=== PATIENT | female | born 1965 | race Caucasian/White ===

== ENCOUNTER 2023-08-16 14:21 | Inpatient (IN) | payer MEDICARE, OTHER, SELFPAY ==
[2023-08-16] VITALS (12 sets, daily range): BP systolic 101–137; BP diastolic 54–85; PULSE 113–133; RESP 20–32; TEMP 36.6–38.6; O2SAT 91–98; BMI 54.1
--- NOTE | ~2023-08-16 | XR_ITS ---
EXAMINATION: XR chest 1V portable DATE: 08/21/2023 15:01 INDICATION: Tachycardia TECHNIQUE: frontal view of the chest was obtained. COMPARISON: Chest radiograph dated 08/18/2023 FINDINGS: The lungs remain clear with no focal airspace opacities, pulmonary edema, pleural effusion or pneumot horax. The cardiomediastinal silhouette is normal. IMPRESSION: 1. No acute cardiopulmonary disease. Reviewed, dictated and finalized at location A.
--- NOTE | ~2023-08-16 | XR_ITS ---
XR chest 1V portable DATE: 08/16/2023 20:33 INDICATION: Sepsis TECHNIQUE: Portable AP chest on August 16, 2023 2026 hours COMPARISON: No prior radiographs available from archive at this time FINDINGS: Heart size is normal. No hilar or mediastinal enlargement is evident. Mild patchy haziness in the mid and lower lung zones suggests possible mild bilateral pulmonary infil trates. No pleural effusion or pulmonary vascular congestion or pneumothorax is detected. IMPRESSION: Suggestion of mild patchy rather diffuse bilateral pulmonary infiltrates Reviewed, dictated and finalized at location A. IMPRESSION: Suggestion of mild patchy rather diffuse bilateral pulmonary infilt rates
--- NOTE | ~2023-08-16 | CT_ITS ---
EXAMINATION: CT abdomen pelvis w con DATE: 08/16/2023 16:36 INDICATION: Right lower quadrant abdominal pain, nausea. TECHNIQUE: Computed tomography (CT) of the abdomen and pelvis was performed with 100 CC Omnipaque 350 intravenous contrast. Automated exposure control and iterative reconstruction technique were employe d. Exam dose: 1669.75 mGy-cm total exam DLP. COMPARISON: 02/13/2006 CT renal scan is not available from the archive at this time. FINDINGS: The lung bases are clear. Heart size is within normal range. No pericardial or pleural effu halina. There is splenomegaly. No hepatic, splenic, pancreatic or left adrenal space occupying mass lesion. Right adrenal 2.5 x 3.5 cm myelolipoma. Prominent bilateral nephrolithiasis. There is an approximately 6 x 7 mm obstructing calculus at the p roximal right ureter with moderate right hydroureteronephrosis and some prominent perinephric fluid a ccumulation. Indeterminate space-occupying mass lesions of the right kidney, not optimally evaluated because of po or soft tissue detail and body habitus. Consider MR examination for more definitive evaluation. Probable small angiomyolipoma of the posterior mid left kidney. No left hydroureteronephrosis. There is some air within the urinary bladder lumen moderate diffuse thickening of the urinary bladder wall. Cystitis is not excluded. Status post hysterectomy. No evidence of abdominal aortic aneurysm. No intraperitoneal or retroperitoneal or pelvic mass lesion or adenopathy or ascites is noted. Small sliding hiatal hernia. Status post gastric bypass surgery. No bowel obstruction or intraperitoneal free air. No suspicious osteolytic or osteoblastic lesions are noted. 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 Reviewed, dictated and finalized at [facility]. IMPRESSION: Approximately 6 x 7 mm obstructing proximal right ureteral calculu s with moderate right hydronephrosis, prominent perinephric fluid and fat stran ding Bilateral nephrolithiasis Bilateral renal indeterminate space-occupying lesions Splenomegaly Right adrenal myelolipoma Small left renal angiomyolipoma Status post gastric bypass surgery Status post hysterectomy
--- NOTE | ~2023-08-16 | US_ITS ---
EXAMINATION: US renal BI DATE: 08/19/2023 14:08 INDICATION: ADAM + pyelonephritis TECHNIQUE: Multiple grayscale and Doppler ultrasound images of the kidneys were obtained. COMPARISON: 08/16/2023 FINDINGS: Exam limited by patient mobility and body habitus. The right kidney measures 11.6 x 8.2 x 10.1 cm. Th e left kidney measures 10.3 x 7.6 x 6.8 cm. The kidneys demonstrate normal parenchymal echogenicity. lobulation versus cortical scarring. Echogenic right upper pole focus measuring up to 1.5 cm wi th twinkle artifact. Hypoechoic right midpole lesion measuring 2.2 cm. Hypoechoic lesions in the left kidney measuring 1.9 and 3.2 cm. There is mild right pelviectasis. The bladder is emptied by Krueger c atheter and therefore not completely evaluated. IMPRESSION: Mild right pelviectasis. Right nephrolithiasis. Bilateral renal masses. Prior recommendation for MRI of the kidneys is unchanged. Reviewed, dictated and finalized at [facility]. IMPRESSION: Mild right pelviectasis. Right nephrolithiasis. Bilateral renal masses. Prior r ecommendation for MRI of the kidneys is unchanged.
--- NOTE | ~2023-08-16 | XR_ITS ---
EXAMINATION: XR chest 2V DATE: 08/18/2023 13:08 INDICATION: Shortness of breath. TECHNIQUE: Frontal and lateral views of the chest were obtained. COMPARISON: Chest single view 08/16/2023, CT abdomen and pelvis 08/16/2023 FINDINGS: There is mild atelectasis in the lower lung zones. No pleural effusion or pneumothorax. The heart size is normal. IMPRESSION: 1. Mild atelectasis in the lower lung zones. Reviewed, dictated and finalized at [facility].
--- NOTE | ~2023-08-16 | XR_ITS ---
EXAMINATION: XR retrograde pyelo w/stent BI DATE: 08/16/2023 23:19 INDICATION: Bilateral retrograde pyelograms and stent placement. TECHNIQUE: 2 fluoroscopic images of the abdomen and pelvis were obtained during procedure performed nikki Morin. Radiologist was not present for the imaging or procedure. The amount of fluoroscopy time used during this procedure was 1.9 minutes. COMPARISON: None. FINDINGS: Images demonstrate placement of bilateral internal ureteral stents with loops formed over the expecte d location of the bladder and bilateral renal pelvises sees. There is increased density at the renal calyces which could represent injected contrast and/or large renal stones as seen on prior CT. IMPRESSION: 1. Bilateral internal ureteral stents place in expected position. See procedure note for further deta il. Reviewed, dictated and finalized at [facility]. IMPRESSION: 1. Bilateral internal ureteral stents place in expected position. See procedure note for further detail.
[2023-08-16 15:21] LABS: Basophils Absolute Auto 0.1 K/mm3 (0.0-0.1); Basophils Percent Auto 0.5 % (0.2-1.2); Eosinophils Absolute Auto 0.1 K/mm3 (0-0.3); Eosinophils Percent Auto 0.4 % (0-4.4); Hematocrit 33.4 % (37.0-47.0); Hemoglobin 9.8 g/dL (12.0-15.0); Immature Granulocyte Absolute 0.15 K/mm3 (0.00-0.031); Lymphocytes Absolute Auto 0.32 K/mm3 (0.9-3.2); Lymphocytes Percent Auto 2.2 % (18.3-44.2); Mean Corpuscular HGB Conc 29.3 g/dl (32-36); Mean Corpuscular Hemoglobin 23.5 pg (26-34); Mean Corpuscular Volume 80.1 fl (80-100); Mean Platelet Volume 9.8 fl (7.4-10.4); Monocytes Absolute Auto 0.7 K/mm3 (0.1-0.6); Monocytes Percent Auto 4.9 % (2.6-8.5); Neutrophils Absolute Auto 13.1 K/mm3 (1.3-6.7); Platelet Count Result 498 k/mm3 (150-375); Red Blood Count 4.17 M/mm3 (4.2-5.4); White Blood Count 14.4 K/mm3 (4.5-10.0)
[2023-08-16] MEDS: MORPHINE SULFATE (*CRX) 4 MG/ML INJ IV PUSH ×2 (15:28→18:57)
[2023-08-16] MEDS: SODIUM CHLORIDE 0.9% IV 1,000 ML 999 ML IV CONT ×2 (15:28→16:09)
[2023-08-16] MEDS: ONDANSETRON INJ 4 MG/2 ML VIAL IV PUSH (15:28)
[2023-08-16 15:29] LABS: Alanine Aminotransferase 16 U/L (6-35); Albumin Level 3.6 g/dL (3.5-5.1); Alkaline Phosphatase 118 U/L (38-126); Anion Gap 16 mmol/L (4-12); Aspartate Amino Transferase 27 U/L (14-36); Blood Urea Nitrogen 19 mg/dL (7-17); Carbon Dioxide 17 mmol/L (22-30); Chloride 97 mmol/L (98-107); Estimated Glomerular Filt Rate 33; Glucose 472 mg/dL (65-110); Lipase 35 U/L (23-300); Potassium 4.8 mmol/L (3.4-5.0); Sodium 130 mmol/L (137-145)
[2023-08-16 15:34] LABS: Appearance Urine Turbid (Clear); Bacteria Urine 4+ /hpf; Bilirubin Urine 1+ (Negative); Blood Urine 3+ (Negative); Color Urine Dark Yellow (Yellow); Glucose Urine UA 3+ mg/dL (Negative); Ketones Urine Trace mg/dL (Negative); Leukocyte Esterase Ur 2+ LEU/UL (Negative); Need Manual Microscopic Reviewed; Nitrate Urine Negative (Negative); Non Pathogenic Casts >20; Protein Urine 2+ mg/dL (Negative); RBC Urine 51-100 /hpf (0-2); Specific Grav Ur 1.024 (1.001-1.035); Squamous Epithelial Cell Urine Many /hpf (Few); WBC Urine >100 /hpf (0-3)
[2023-08-16 15:47] LABS: Add Urine Microscopic? YES
--- NOTE | 2023-08-16 16:05 | ED.ABDPAIN ---
HPI - Abdominal Pain General Chief Complaint: Abdominal Pain Stated Complaint: right lower abdominal pain, recent UTI Time Seen by Provider: 08/16/23 14:55 History of Present Illness HPI narrative: patient is a 58-year-old female who presents ER with right lower quadrant abdominal pain. Is having symptoms of UTI this last week and was prescribed ciprofloxacin over the phone. She has been taking medicine. Urinary frequency and dysuria improved. She took some azo as well. Unfortunately she has developed pain in right lower quadrant that is worsening. No radiation. No fevers or chills. Patient reports she is urinating less than she used to. Related Data Allergies Allergy/AdvReac Type Severity Reaction Status Date / Time metformin AdvReac Intermediate Diarrhea Verified 03/19/23 07:43 TOPICAL SULFA Allergy Mild RASH AND Uncoded 03/19/23 07:43 REDNESS Review of Systems Review of Systems: All systems reviewed & are unremarkable except as noted in HPI and below Constitutional: Constitutional: Reports no additional constitutional complaints ENT: Reports system reviewed and no additional complaints, except as documented Cardiovascular: Cardiovascular: Reports no additional cardiovascular complaints Respiratory: Respiratory: Reports no additional respiratory complaints Gastrointestinal: Gastrointestinal: Reports abdominal pain, Denies constipation, Denies nausea and Denies vomiting Genitourinary: Genitourinary: Reports no additional female genitourinary complaints [facility] Past Medical History Medical History (Updated 08/16/23 @ 17:58 by Jey Hernandez MD) Type 2 diabetes mellitus with hyperglycemia Surgical History Surgical History (Updated 03/02/22 @ 08:08 by Ronny Young MD) History of endometrial ablation (2003) History of gastric bypass (2004) History of hysterectomy (2005) Family History Family History (Updated 12/02/15 @ 23:19 by DOCTOR UNKNOWN) Father Carcinoma of colon Sibling Family history of diabetes mellitus in first degree relative Mother Family history of heart disease in male family member before age 55 Other Diabetes mellitus Social History Social History Smoking status: Former smoker Alcohol intake: never Exam Narrative: GENERAL: Well-appearing, morbidly obese, and in no acute distress. HEAD: Normocephalic, atraumatic. ENT: dry mucous membranes. NECK: Supple. CHEST: Clear to auscultation. No respiratory distress. HEART: Regular rate and rhythm. Normal peripheral pulses. ABDOMEN: Soft, nontender, nondistended. EXTREMITIES: Normal range of motion. No edema. SKIN: Warm, dry, no rash. NEURO: Alert and oriented x3. PSYCH: Normal mood and affect. Course Course Emergency Course: Discussed with urology. Recommends repeat UA for a clean sample in the recommend catheterization. He would like the patient admitted to the hospitalist service and NPO. Ceftriaxone started. Patient aware of diagnosis and treatment plan. Vital Signs Vital signs: Vital Signs Temperature 99.1 F 08/16/23 14:24 Pulse Rate 130 H 08/16/23 14:24 Respiratory Rate 22 H 08/16/23 14:24 Blood Pressure 122/71 08/16/23 14:24 Pulse Oximetry 96 08/16/23 14:24 Oxygen Delivery Room Air 08/16/23 14:24 Temperature 99.1 F 08/16/23 14:24 Pulse Rate 130 H 08/16/23 14:24 Respiratory Rate 22 H 08/16/23 14:24 Blood Pressure 122/71 08/16/23 14:24 Pulse Oximetry 96 08/16/23 14:24 Oxygen Delivery Room Air 08/16/23 14:24 MDM - Abdominal Pain Lab Data 08/16/23 15:12 08/16/23 15:12 Labs: Lab Results 08/16/23 08/16/23 08/16/23 Range/Units 15:11 15:12 17:33 WBC 14.4 H (4.5-10.0) K/mm3 RBC 4.17 L (4.2-5.4) M/mm3 Hgb 9.8 L (12.0-15.0) g/dL Hct 33.4 L (37.0-47.0) % MCV 80.1 (80-100) fl MCH 23.5 L (26-34) pg MCHC 29.3 L (32-36) g/dl RDW 16.0 H (11.5-14.5) % Plt Count
[2023-08-16 18:01] LABS: Lactic Acid Reflex 2.7 mmol/L (0.7-2.0)
[2023-08-16] MEDS: SODIUM CHLORIDE 0.9% IV 1,000 ML 125 ML IV CONT (18:53)
--- NOTE | 2023-08-16 19:45 | PC.NURSE ---
This patient, Estefany Li, was admitted to IMU Room 210-01. Patient/family oriented to hospital policies and general routines including ID bracelet, bed and alarms, visiting hours, pain management, procedures, bathroom and other care routines, personal items, smoking policy, room service/diet, and visiting hours. Information on how to activate the Rapid Response Team has been discussed. Patient/Family are encouraged to report perceived risks to care and to ask questions if they do not understand what they are told or what they should do.
--- NOTE | 2023-08-16 19:56 | PM.IMHP ---
H&P: HPI History of Present Illness Date/Time: 08/16/23 19:56 Chief Complaint: Abdominal Pain, Nausea, Dysuria Narrative: 58 y/o F presents here with lower abdominal pain, nausea, and dysuria with PMH of type 2 diabetes, GERD, insomnia, overactive bladder, and anxiety/depression. Surgical history of endometrial ablation, gastric bypass, and hysterectomy. Patient presents here for further evaluation of right lower quadrant pain, dysuria, and nausea without vomiting but has been dry heaving. Lower abdominal pain is described as severe, radiating into R flank, and intermittent. Patient reports that she was treated for a UTI with Cipro 500 mg b.i.d. x7 days, filled on 07/29/2023 and Augmentin b.i.d. x7 days on 08/02/2023. Prescribed by her PCP Indu. Dysuria and urinary frequency did not resolve with abx courses but did not worsen until 3-4 days ago, i.e. the flank pain and lower abdominal pain. Now experiencing chills, SOB and tachypnea. Denies any subjective fevers or body aches. Has had decreased appetite and dry mucous membranes for the past month, patient does not check glucose at home - has never been prescribed the equipment and told she does not need to. Last A1C was 9.8% in Mar. Not on any injectable insulin. Initial VS at presentation: 99.1? F, HR 130, RR 22, 122/71, and 96% on RA. ED workup showed: WBC 14.4, Hgb 9.8 (previously 11.7 in 2021), sodium 130, CO2 17, gap 16, creatinine 1.6 with GFR of 33 (previous creatinine 0.74 on 03/12/2023), glucose 472, lactic acid 2.7, and UA suggestive of UTI however was contaminated. Being repeated. CT of the abdomen pelvis showed a 6 x 7 mm obstructing proximal right ureteral calculus with moderate right hydronephrosis, prominent perinephritic fluid, and fat stranding, bilateral nephrolithiasis, bilateral renal indeterminate space-occupying lesions, splenomegaly, right adrenal myelolipoma, small left renal angio myelolipoma. Review of Systems Review of Systems: All systems reviewed & are unremarkable except as noted in HPI and below PMFSH Past Medical History Medical History Gastro-esophageal reflux disease without esophagitis Hypothyroidism, unspecified Major depressive disorder, recurrent severe without psychotic features Morbid (severe) obesity due to excess calories Overactive bladder Type 2 diabetes mellitus with hyperglycemia Surgical History Surgical History History of endometrial ablation (2003) History of gastric bypass (2004) History of hysterectomy (2005) Family History Family History Father Carcinoma of colon Sibling Family history of diabetes mellitus in first degree relative Mother Family history of heart disease in male family member before age 55 Other Diabetes mellitus Social History Social History Years smoked: 30 Smoking status: Former smoker Alcohol intake: never Substance use: never Do You Feel Safe in your Home?: Yes Lack of Transportation: YES Lack of Food: Never True Current Housing: I Have Housing Concerned About Future Housing: YES Difficulty Paying Gas/Electric Bills: No Difficulty Paying for Meds: No Currently Unemployed: No Education: Decline to Answer Difficulty w/ Childcare or Family Care: No Spiritual care concerns: No Meds Home Medications and Allergies Home Medications Medication Instructions Recorded Confirmed Type oxybutynin chloride 10 mg 20 mg PO DAILY #180 tabs 03/19/23 08/16/23 Rx tablet,extended release 24 hr omeprazole 40 mg capsule,delayed 40 mg PO DAILY #90 caps 03/31/23 08/16/23 Rx release glimepiride 1 mg tablet 1 mg PO QAM #90 tabs 04/02/23 08/16/23 Rx pioglitazone 30 mg tablet 30 mg PO DAILY #90 tabs 04/02/23 08/16/23 Rx bupropion HCl 300 mg
[2023-08-16 20:14] LABS: Appearance Urine Turbid (Clear); Bacteria Urine 4+ /hpf; Bilirubin Urine 1+ (Negative); Blood Urine 3+ (Negative); Color Urine Dark Yellow (Yellow); Glucose Urine UA 3+ mg/dL (Negative); Ketones Urine Negative (Negative); Leukocyte Esterase Ur 2+ LEU/UL (Negative); Need Manual Microscopic Reviewed; Nitrate Urine Positive (Negative); Protein Urine 2+ mg/dL (Negative); Squamous Epithelial Cell Urine Few /hpf (Few); WBC Urine >100 /hpf (0-3)
[2023-08-16 20:17] LABS: Specific Grav Ur 1.039 (1.001-1.035)
[2023-08-16 20:19] LABS: Add Urine Microscopic? YES
[2023-08-16 20:27] LABS: Alveolar/Arterial O2 Gradient 51.3 mmHg; Base Excess ABG -4.4 mEq/l (+/-2.0); Fractional Inspired Oxygen 21 %; HCO3 ABG 20.2 mEq/l (22.0-26.0); Oxygen Content ABG 12.1 %vol (16.0-22.0); PCO2 ABG 35.2 mmHg (35.0-45.0); PO2 ABG 56.3 mmHg (80.0-100.0); PO2 FiO2 Ratio Arterial Blood 2.68 %; Total Hemoglobin 9.8 g/dL (12.0-18.0)
[2023-08-16 20:30] LABS: Modified Allen's Test Pass; Oxyhemoglobin 87.4 % THb (90.0-100.0); Site Drawn RIGHT RADIAL
[2023-08-16 20:31] LABS: pH ABG 7.376 (7.350-7.450)
[2023-08-16 20:37] LABS: Reflex Lactic Acid Yes or No Add Lactic
[2023-08-16 20:59] LABS: Anion Gap 8 mmol/L (4-12); Blood Urea Nitrogen 19 mg/dL (7-17); Calcium 8.6 mg/dL (8.4-10.2); Carbon Dioxide 22 mmol/L (22-30); Chloride 100 mmol/L (98-107); Estimated CRCL calculation 48 ml/min; Estimated Glomerular Filt Rate 29; Glucose 427 mg/dL (65-110); Lactic Acid Reflex 2.5 mmol/L (0.7-2.0); Potassium 4.8 mmol/L (3.4-5.0); Sodium 130 mmol/L (137-145)
[2023-08-16 21:08] LABS: Beta-Hydroxybutyrate/Acetoacetate 0.41 mmol/L (0.02-0.27)
--- NOTE | 2023-08-16 21:11 | WPDANESEPP ---
Anes - Eval Pre Procedure Procedure: cystoscopy with right stent placement Date/Time: 08/16/23 21:11 Preop Diagnosis: right ureteral stone Pre Op Diagnosis: Ureteral Stone, UTI Patient Data Age: 58 Gender: F Height: 1.7 m Weight: 156.6 kg Last Vital Signs Temp 37.7 C H 08/16/23 19:50 Pulse 127 H 08/16/23 19:50 Resp 22 H 08/16/23 19:50 BP 127/68 08/16/23 19:50 Pulse Ox 91 08/16/23 19:50 O2 Del Method Room Air 08/16/23 14:24 Allergies Allergy/AdvReac Type Severity Reaction Status Date / Time metformin AdvReac Intermediate Diarrhea Verified 08/16/23 19:54 TOPICAL SULFA Allergy Mild RASH AND Uncoded 03/19/23 07:43 REDNESS Home Medications Medication Instructions Recorded Confirmed Type oxybutynin chloride 10 mg 20 mg PO DAILY #180 tabs 03/19/23 08/16/23 Rx tablet,extended release 24 hr omeprazole 40 mg capsule,delayed 40 mg PO DAILY #90 caps 03/31/23 08/16/23 Rx release glimepiride 1 mg tablet 1 mg PO QAM #90 tabs 04/02/23 08/16/23 Rx pioglitazone 30 mg tablet 30 mg PO DAILY #90 tabs 04/02/23 08/16/23 Rx bupropion HCl 300 mg 24 hr tablet, 300 mg PO DAILY 08/16/23 08/16/23 History extended release buspirone 10 mg tablet See Rx Instructions .Route .COMPLEX 08/16/23 08/16/23 History fenofibrate 160 mg tablet 160 mg PO DAILY 08/16/23 08/16/23 History quetiapine 100 mg tablet 100 mg PO HS 08/16/23 08/16/23 History sertraline 100 mg tablet 100 mg PO DAILY 08/16/23 08/16/23 History trazodone 100 mg tablet 100 mg PO HS 08/16/23 08/16/23 History Laboratory Tests 08/16/23 08/16/23 08/16/23 15:11 15:12 17:33 WBC 14.4 H K/mm3 (4.5-10.0) RBC 4.17 L M/mm3 (4.2-5.4) Hgb 9.8 L g/dL (12.0-15.0) Hct 33.4 L % (37.0-47.0) MCV 80.1 fl (80-100) MCH 23.5 L pg (26-34) MCHC 29.3 L g/dl (32-36) RDW 16.0 H % (11.5-14.5) Plt Count 498 H k/mm3 (150-375) MPV 9.8 fl (7.4-10.4) Immature Gran % (Auto) 1.0 H % (0-0.5) Neut % (Auto) 91.0 H % (45.5-73.1) Lymph % (Auto) 2.2 L % (18.3-44.2) [place] % (Auto) 4.9 % (2.6-8.5) Eos % (Auto) 0.4 % (0-4.4) Baso % (Auto) 0.5 % (0.2-1.2) Lymph # (Auto) 0.32 L K/mm3 (0.9-3.2) [place] # (Auto) 0.7 H K/mm3 (0.1-0.6) Eos # (Auto) 0.1 K/mm3 (0-0.3) Baso # (Auto) 0.1 K/mm3 (0.0-0.1) Abs Immat Gran (auto) 0.15 H K/mm3 (0.00-0.031) Absolute Neuts (auto) 13.1 H K/mm3 (1.3-6.7) Absolute Nucleated RBC 0.000 K/mm3 (0.0-0.012) Nucleated RBC % 0.0 % (0.0-0.2) Puncture Site ABG pH ABG pCO2 ABG pO2 ABG PO2/FiO2 Ratio ABG HCO3 ABG O2 Saturation ABG O2 Content ABG Base Excess A-a Gradient Oxyhemoglobin Total Hemoglobin O2 Delivery Device O2 Liters/Min FiO2 Sodium 130 L mmol/L (137-145) Potassium 4.8 mmol/L (3.4-5.0) Chloride 97 L mmol/L (98-107) Carbon Dioxide 17 L mmol/L (22-30) Anion Gap 16 H mmol/L (4-12) BUN 19 H mg/dL (7-17) Creatinine 1.60 H mg/dL (0.7-1.0) Estim Creat Clear Calc Not Reportable Estimated GFR 33 L (59 - ) Glucose 472 H mg/dL (65-110) Lactic Acid 2.7 H mmol/L (0.7-2.0) Calcium 9.0 mg/dL (8.4-10.2) Total Bilirubin 1.0 mg/dL (0.2-1.3) AST 27 U/L (14-36) ALT 16 U/L (6-35) Alkaline Phosphatase 118 U/L (38-126) Total Protein 7.0 g/dL (6.3-8.2) Albumin 3.6 g/dL (3.5-5.1) Lipase 35 U/L (23-300) Beta-Hydroxybutyrate/Acetoacetate Procalcitonin Urine Color Dark ye
[2023-08-16 21:14] LABS: Glucose Point of Care 427 mg/dl (65-105)
[2023-08-16] MEDS: INSULIN HUMAN REGULAR (*BKC) 100 UNITS/ML 11 UNITS SUB-Q (21:15)
[2023-08-16 21:27] LABS: Procalcitonin 4.7 ng/mL
[2023-08-16] MEDS: IPRATROPIUM BR 0.02% INH SOLN 0.5 MG/2.5 ML VIAL 0.75 MG INHALATION (21:30)
[2023-08-16] MEDS: LEVALBUTEROL NEB 1.25 MG/3 ML INHALATION (21:31)
--- NOTE | 2023-08-16 22:02 | WPDANESEPPF ---
Anes - Initial Pre Proc Eval Procedure: Operation Date: 08/16/23 21:45 Proposed Procedures p Cystoscopy with Right Stent Placement(Right) - Azam Morin MD Date/Time: 08/16/23 22:02 Surgeon: Patience Pre Op Diagnosis: Ureteral Stone, UTI Patient Data Age: 58 Gender: F Height: 1.7 m Weight: 156.6 kg Last Vital Signs Temp 37.7 C H 08/16/23 19:50 Pulse 127 H 08/16/23 19:50 Resp 22 H 08/16/23 19:50 BP 127/68 08/16/23 19:50 Pulse Ox 91 08/16/23 19:50 O2 Del Method Room Air 08/16/23 14:24 Allergies Allergy/AdvReac Type Severity Reaction Status Date / Time metformin AdvReac Intermediate Diarrhea Verified 08/16/23 19:54 TOPICAL SULFA Allergy Mild RASH AND Uncoded 03/19/23 07:43 REDNESS Home Medications Medication Instructions Recorded Confirmed Type oxybutynin chloride 10 mg 20 mg PO DAILY #180 tabs 03/19/23 08/16/23 Rx tablet,extended release 24 hr omeprazole 40 mg capsule,delayed 40 mg PO DAILY #90 caps 03/31/23 08/16/23 Rx release glimepiride 1 mg tablet 1 mg PO QAM #90 tabs 04/02/23 08/16/23 Rx pioglitazone 30 mg tablet 30 mg PO DAILY #90 tabs 04/02/23 08/16/23 Rx bupropion HCl 300 mg 24 hr tablet, 300 mg PO DAILY 08/16/23 08/16/23 History extended release buspirone 10 mg tablet See Rx Instructions .Route .COMPLEX 08/16/23 08/16/23 History fenofibrate 160 mg tablet 160 mg PO DAILY 08/16/23 08/16/23 History quetiapine 100 mg tablet 100 mg PO HS 08/16/23 08/16/23 History sertraline 100 mg tablet 100 mg PO DAILY 08/16/23 08/16/23 History trazodone 100 mg tablet 100 mg PO HS 08/16/23 08/16/23 History Laboratory Tests 08/16/23 08/16/23 08/16/23 15:11 15:12 17:33 WBC 14.4 H K/mm3 (4.5-10.0) RBC 4.17 L M/mm3 (4.2-5.4) Hgb 9.8 L g/dL (12.0-15.0) Hct 33.4 L % (37.0-47.0) MCV 80.1 fl (80-100) MCH 23.5 L pg (26-34) MCHC 29.3 L g/dl (32-36) RDW 16.0 H % (11.5-14.5) Plt Count 498 H k/mm3 (150-375) MPV 9.8 fl (7.4-10.4) Immature Gran % (Auto) 1.0 H % (0-0.5) Neut % (Auto) 91.0 H % (45.5-73.1) Lymph % (Auto) 2.2 L % (18.3-44.2) [place] % (Auto) 4.9 % (2.6-8.5) Eos % (Auto) 0.4 % (0-4.4) Baso % (Auto) 0.5 % (0.2-1.2) Lymph # (Auto) 0.32 L K/mm3 (0.9-3.2) [place] # (Auto) 0.7 H K/mm3 (0.1-0.6) Eos # (Auto) 0.1 K/mm3 (0-0.3) Baso # (Auto) 0.1 K/mm3 (0.0-0.1) Abs Immat Gran (auto) 0.15 H K/mm3 (0.00-0.031) Absolute Neuts (auto) 13.1 H K/mm3 (1.3-6.7) Absolute Nucleated RBC 0.000 K/mm3 (0.0-0.012) Nucleated RBC % 0.0 % (0.0-0.2) Puncture Site ABG pH ABG pCO2 ABG pO2 ABG PO2/FiO2 Ratio ABG HCO3 ABG O2 Saturation ABG O2 Content ABG Base Excess A-a Gradient Oxyhemoglobin Total Hemoglobin O2 Delivery Device O2 Liters/Min FiO2 Sodium 130 L mmol/L (137-145) Potassium 4.8 mmol/L (3.4-5.0) Chloride 97 L mmol/L (98-107) Carbon Dioxide 17 L mmol/L (22-30) Anion Gap 16 H mmol/L (4-12) BUN 19 H mg/dL (7-17) Creatinine 1.60 H mg/dL (0.7-1.0) Estim Creat Clear Calc Not Reportable Estimated GFR 33 L (59 - ) Glucose 472 H mg/dL (65-110) POC Capillary Glucose Lactic Acid 2.7 H mmol/L (0.7-2.0) Calcium 9.0 mg/dL (8.4-10.2) Total Bilirubin 1.0 mg/dL (0.2-1.3) AST 27 U/L (14-36) ALT 16 U/L (6-35) Alkaline Phosphatase 118 U/L (38-126) Total Protein 7.0 g/dL (6.3-8.2) Albumin 3.6 g/dL (3.5-5.1) Lipase
[2023-08-16 22:18] LABS: Glucose Point of Care 399 mg/dl (65-105)
--- NOTE | 2023-08-16 22:38 | PM.IMHP ---
H&P: HPI History of Present Illness Date/Time: 08/16/23 22:38 Chief Complaint: Kidney stone Narrative: Patient enrolled with multiple medical problems presented to the emergency department this afternoon with complaint of slight pain, fatigue, chills, concern for urinary tract infection. She has been having ongoing dysuria and infection like symptoms for approximately 2 weeks. She was started on Cipro empirically by primary care physician about 1 week ago. She came to emergency department today because her symptoms seem to be worsening. In the ER she was tachycardic, normotensive, initially afebrile blood pressure spiked a low-grade temperature upon admission. Labs were consistent with urinary tract infection, she had mild lactic acidosis, leukocytosis, CT scan demonstrated stone in the proximal right ureter as well as some nonobstructing stones upstream. She was started on Rocephin and admitted to the floor. Review of Systems Review of Systems: All systems reviewed & are unremarkable except as noted in HPI and below PMFSH Past Medical History Medical History Gastro-esophageal reflux disease without esophagitis Hypothyroidism, unspecified Major depressive disorder, recurrent severe without psychotic features Morbid (severe) obesity due to excess calories Overactive bladder Type 2 diabetes mellitus with hyperglycemia Surgical History Surgical History History of endometrial ablation (2003) History of gastric bypass (2004) History of hysterectomy (2005) Family History Family History Father Carcinoma of colon Alcoholism Sibling Diabetes mellitus DVT (deep venous thrombosis) Uterine cancer Cerebrovascular accident Mother Family history of heart disease in male family member before age 55 Heart failure Sibling Diabetes mellitus Social History Social History Years smoked: 30 Smoking status: Former smoker Alcohol intake: never Substance use: never Do You Feel Safe in your Home?: Yes Lack of Transportation: YES Lack of Food: Never True Current Housing: I Have Housing Concerned About Future Housing: YES Difficulty Paying Gas/Electric Bills: No Difficulty Paying for Meds: No Currently Unemployed: No Education: Decline to Answer Difficulty w/ Childcare or Family Care: No Spiritual care concerns: No Meds Home Medications and Allergies Home Medications Medication Instructions Recorded Confirmed Type oxybutynin chloride 10 mg 20 mg PO DAILY #180 tabs 03/19/23 08/16/23 Rx tablet,extended release 24 hr omeprazole 40 mg capsule,delayed 40 mg PO DAILY #90 caps 03/31/23 08/16/23 Rx release glimepiride 1 mg tablet 1 mg PO QAM #90 tabs 04/02/23 08/16/23 Rx pioglitazone 30 mg tablet 30 mg PO DAILY #90 tabs 04/02/23 08/16/23 Rx bupropion HCl 300 mg 24 hr tablet, 300 mg PO DAILY 08/16/23 08/16/23 History extended release buspirone 10 mg tablet See Rx Instructions .Route .COMPLEX 08/16/23 08/16/23 History fenofibrate 160 mg tablet 160 mg PO DAILY 08/16/23 08/16/23 History quetiapine 100 mg tablet 100 mg PO HS 08/16/23 08/16/23 History sertraline 100 mg tablet 100 mg PO DAILY 08/16/23 08/16/23 History trazodone 100 mg tablet 100 mg PO HS 08/16/23 08/16/23 History Allergies Allergy/AdvReac Type Severity Reaction Status Date / Time metformin AdvReac Intermediate Diarrhea Verified 08/16/23 19:54 TOPICAL SULFA Allergy Mild RASH AND Uncoded 03/19/23 07:43 REDNESS Vital Signs Vital Signs - 24 hr 08/16/23 14:24 08/16/23 15:03 08/16/23 15:46 Temperature 37.3 C 36.6 C 36.6 C Pulse Rate 130 H 125 H 120 H Respiratory Rate 22 H 20 20 Blood Pressure 122/71 137/85 118/63 Pulse Oximetry 96 96 Oxygen Delivery Room Air 08/16/23 16
[2023-08-16] MEDS: LIDOCAINE HCL 2% GEL UROJET 10 ML PKG MUCOUS MEM (22:57)
--- NOTE | 2023-08-16 23:14 | SUR.OPER ---
Urine Cx from Right Kidney collected during Cystoscopy per Dr. Morin. NATASHA Hinojosa delivered culture to Yara.
--- NOTE | 2023-08-16 23:18 | W.PM.PROC2 ---
Procedure Note - Detailed Date of Procedure 08/16/23 Pre-op Diagnosis Ureteral Stone, UTI Post-op Diagnosis Same Procedure Performed Cystoscopy, bilateral retrograde pyelogram, bilateral ureteral stent placement (6 Indonesian variable length) Surgeon Azam Morin MD Anesthesia MAC Indications Patient is a 58-year-old woman presented to the emergency department today with several weeks of urinary tract infection symptoms, right flank pain, fatigue, chills was found to have a 10 mm obstructing stone in the right kidney and more stone proximal to that as well as nonobstructing stones in the left including relatively large stone in the renal pelvis. Findings 1. Proximal ureteral and renal pelvis stone on right, right kidney with low anatomic lie and significant medial deviation of the ureter 2. Left kidney with stone visible at the level of the UPJ 3. Cystitis 4. Purulent hydronephrotic urine from right kidney, purulent hydronephrotic urine from left kidney Description of Procedure After obtaining informed consent we proceed to the operating room. The patient was placed in supine position. SCD boots were placed. Achieving and dose of antibiotics on the floor. Mac anesthesia induced. She was placed in lithotomy position and prepped and draped in usual sterile manner. We began by placing a Uro jet per the urethra. A 19 Indonesian cystoscope was then introduced per the urethra. The bladder is emptied of all urine which is significantly cloudy. We performed full endoscopic evaluation of the bladder. The bladder was notable for significant erythema throughout consistent with cystitis. We focused our attention on the patient's right ureteral orifice. This was cannulated with 5 Indonesian catheter. Gentle retrograde pyelogram was performed to opacify collecting system a filling defect was visible in the proximal ureter as well as in the renal pelvis consistent with patient's known stones. There was mild hydronephrosis. There was substantial medial deviation of the ureter consistent with those seen on her CT scan. A sensor wire was passed it was able to bypass the stone into a interpolar calyx. There is significant amount of purulent urine drained from the kidney as soon as this wire bypassed the stone. Five Indonesian catheter was fed beyond the stone. Urine was captured for this sent for a culture. The wire was replaced. A 6 Indonesian double-J variable length stent was passed over the wire. Proximal curl was visualized within the interpolar calyx beyond the stone. There was good curl within the bladder. Given the patient's overall ill appearing state, purulent urine from the right large stone in the left renal pelvis without hydronephrosis but an area that could be partially obstructing I elected to evaluate the left side as felt there was a possibility acute it be at least partially obstructed and benefit from drainage as well given patient's clinical picture. Five Indonesian catheter was used to cannulate this orifice. Gentle retrograde pyelogram was performed. Demonstrated normal ureter. Stone was visible in the renal pelvis contrast passed proximally there was minimal to mild hydronephrosis. However there was some hydronephrotic urine with purulent fluid that drained once we completed injection. Given that I elected to place a stent on this side to help stabilize the patient. Sensor wire was passed. A 6 Indonesian variable length stent was passed over the wire with good curl upper pole calyx ran the course the urine good curl within the bladder. The bladder is empty. Eighteen Indonesian Krueger catheter was placed in the bladder. Once this was in place this concluded the procedure. The patient tolerated the procedure without apparent complication. Implants Bilateral 6 Indonesian variable length ureteral stents Estimated Blood Loss 0 Drains Yes (18 Indonesian Krueger catheter) Complications No immediate complications Condition Stable Disposition PACU
[2023-08-16] MEDS: LACTATED RINGERS 1,000 ML 30 ML IV CONT (23:24)
[2023-08-17] VITALS (24 sets, daily range): BP systolic 102–157; BP diastolic 56–94; PULSE 87–125; RESP 20–31; TEMP 36.1–38.3; O2SAT 94–99
[2023-08-17 00:46] LABS: Glucose Point of Care 368 mg/dl (65-105)
[2023-08-17] MEDS: CEFEPIME 2 GM/NS 50 ML BAG IVPB ×3 (00:51→23:24)
[2023-08-17 00:56] LABS: Hematocrit 31.6 % (37.0-47.0); Hemoglobin 9.2 g/dL (12.0-15.0); Mean Corpuscular HGB Conc 29.1 g/dl (32-36); Mean Corpuscular Hemoglobin 23.7 pg (26-34); Mean Corpuscular Volume 81.2 fl (80-100); Mean Platelet Volume 9.7 fl (7.4-10.4); Platelet Count Result 433 k/mm3 (150-375); Red Blood Count 3.89 M/mm3 (4.2-5.4); Red Cell Distribution Width 16.2 % (11.5-14.5); White Blood Count 14.8 K/mm3 (4.5-10.0)
--- NOTE | 2023-08-17 00:56 | PC.NURSE ---
Patient transported from PACU back to her room in IMU 210, in stable condition. All questions addressed. Vitals and labs per chart.
[2023-08-17] MEDS: VANCOMYCIN 1,250 MG/NS 250 ML 1,250 MG/250 ML BAG 166.67 MG IVPB ×2 (01:38)
[2023-08-17] MEDS: QUEtiapine FUMARATE 100 MG TABLET PO ×2 (01:39→20:36)
--- NOTE | 2023-08-17 02:56 | PC.NURSE ---
08/16/23 [id number] patient transported to OR via bed by this RN and NATASHA Okeefe.
[2023-08-17 05:10] LABS: Estimated CRCL calculation 49 ml/min; Estimated Glomerular Filt Rate 29
[2023-08-17 05:11] LABS: Hemoglobin A1C 10.4 % (<5.7)
--- NOTE | 2023-08-17 06:41 | PC.NURSE ---
The patient's chart was flagged for having a positive blood culture. The results have not been called to the floor yet, but as Dr. Lowery is currently nearby, results were read to her. No new orders for now.
[2023-08-17 08:10] LABS: Glucose Point of Care 354 mg/dl (65-105)
[2023-08-17] MEDS: PANTOPRAZOLE SODIUM IV 40 MG VIAL IV PUSH (09:07)
[2023-08-17] MEDS: SERTRALINE HCL 50 MG TABLET 100 MG PO (09:08)
[2023-08-17] MEDS: busPIRone HCL 10 MG TABLET PO (09:08)
[2023-08-17] MEDS: buPROPion HCL XL (24 HR) 150 MG TABCR 300 MG PO (09:08)
[2023-08-17] MEDS: FENOFIBRATE 160 MG TABLET PO (09:08)
[2023-08-17] MEDS: PIOGLITAZONE HCL 30 MG TABLET PO (09:08)
[2023-08-17] MEDS: INSULIN ASPART (*BKC) 100 UNITS/ML SUB-Q ×4 (09:11→20:37)
[2023-08-17] MEDS: ONDANSETRON INJ 4 MG/2 ML VIAL IV PUSH (09:33)
--- NOTE | 2023-08-17 10:08 | PM.IMPN ---
Progress Note: A&P Assessment and Plan (1) Sepsis: Code(s): A41.9 - Sepsis, unspecified organism Status: Acute Assessment and Plan: Patient presents with abdominal pain and met SIRS criteria with elevated HR, RR, WBC, lactic (2.7). PCT 4.7. BP stable She received appropriate fluid resuscitation. UA was consistent with UTI. UCx pending BCx 08/15 GNB CXR showing Suggestion of mild patchy rather diffuse bilateral pulmonary infiltrates? CT abd/pelvis with approximately 6 x 7 mm obstructing proximal right ureteral calculus with moderate right hydronephrosis, prominent perinephric fluid and fat stranding. Bilateral nephrolithiasis. Bilateral renal indeterminate space-occupying lesions. Splenomegaly. Right adrenal myelolipoma. 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 Status post hysterectomy Suspected source: UTI/septic renal stone She was started on ceftriaxone on 08/15. given patient appearance and vital signs, escalating ABX to vancomycin and cefepime for urine and respiratory coverage. Continue current abx. Trend WBC. Follow up on urine and blood culture results. Will repeat BCx tomorrow to ensure clearance given the 'space-occupying lesions' Monitor closely given her somnolence. Hold trazodone (2) Hypoxia: Code(s): R09.02 - Hypoxemia Status: Acute Assessment and Plan: Patieint hypoxic requiring a couple of liters of O2. CXR as above She is fluid positive. Consider fluid overload with poor UOP and IVF Stop IVF for now ABG. Repeat labs as well. (3) Calculus, ureteral: Code(s): N20.1 - Calculus of ureter Status: Acute Assessment and Plan: CT abdomen/pelvis showing approximately 6 x 7 mm obstructing proximal right ureteral calculus with moderate right hydronephrosis, prominent perinephric fluid and fat stranding with bilateral nephrolithiasis. Bilateral renal indeterminate space-occupying lesions Urology consulted and appreciate their input. Patient underwent cystoscopy with bilateral retrograde pyelogram and bilateral ureteral stent placement on 08/16/23 Abx as above Follow (4) Pyelonephritis: Code(s): N12 - Tubulo-interstitial nephritis, not specified as acute or chronic Status: Acute Assessment and Plan: CT abd/pelvis: Approximately 6 x 7 mm obstructing proximal right ureteral calculus with moderate right hydronephrosis, prominent perinephric fluid and fat stranding and bilateral renal indeterminate space-occupying lesions. UA consistent with UTI. BCx positive as above Continue current abx. Monitor for the development of renal abscess (5) ADAM (acute kidney injury): Code(s): N17.9 - Acute kidney failure, unspecified Status: Acute Assessment and Plan: Patient has normal baseline renal function; previously 0.74 on 03/12/2023 Cr 1.6 on admission. Suspect injury secondary to post-obstruction process, ATN for sepsis and dehydration UOP poor Repeat labs today. Monitor UOP, renal function and electrolytes. (6) Type 2 diabetes mellitus with hyperglycemia: Code(s): E11.65 - Type 2 diabetes mellitus with hyperglycemia Status: Acute Assessment and Plan: A1c 10.4. Initial blood glucose 472. The patient's blood glucose was reviewed on 08/16 She is on Amaryl, Actos at home which we sissy hold Glucose remains poorly controlled. Continue AccuCheks covering with sliding scale. Hypoglycemia protocol available as needed. Continue to monitor. Add lantus Plan 40minutes spent on critical care time DVT Prophylaxis: SCDs Code Status: Full code Subjective Date/time seen: 08/17/23 10:08 Interval history: 58yo female with DM, depression, morbid obesity and recent UTI here for right lower abdominal pain. Patient slept well. She does feel tired this morning. Slight shortness of breath. No chest pain. She does not have a history of sleep apnea. She is not on home oxygen.
[2023-08-17] MEDS: INSULIN GLARGINE (*BKC) 100 UNITS/ML 8 UNITS SUB-Q (10:42)
[2023-08-17 10:45] LABS: MRSA (PCR) NOT DETECTED (NOT DETECTE)
[2023-08-17 11:11] LABS: Hematocrit 28.3 % (37.0-47.0); Hemoglobin 8.4 g/dL (12.0-15.0); Mean Corpuscular HGB Conc 29.7 g/dl (32-36); Mean Corpuscular Hemoglobin 23.9 pg (26-34); Mean Corpuscular Volume 80.4 fl (80-100); Mean Platelet Volume 9.5 fl (7.4-10.4); Platelet Count Result 365 k/mm3 (150-375); Red Blood Count 3.52 M/mm3 (4.2-5.4); Red Cell Distribution Width 16.2 % (11.5-14.5); White Blood Count 10.6 K/mm3 (4.5-10.0)
[2023-08-17 11:22] LABS: Alanine Aminotransferase 15 U/L (6-35); Albumin Level 2.9 g/dL (3.5-5.1); Alkaline Phosphatase 92 U/L (38-126); Anion Gap 8 mmol/L (4-12); Aspartate Amino Transferase 23 U/L (14-36); Bilirubin,Total 0.5 mg/dL (0.2-1.3); Blood Urea Nitrogen 25 mg/dL (7-17); Calcium 8.4 mg/dL (8.4-10.2); Carbon Dioxide 18 mmol/L (22-30); Chloride 101 mmol/L (98-107); Estimated CRCL calculation 44 ml/min; Estimated Glomerular Filt Rate 26; Glucose 364 mg/dL (65-110); Lactic Acid Reflex 1.4 mmol/L (0.7-2.0); Magnesium 1.9 mg/dL (1.6-2.3); Phosphorus 3.7 mg/dL (2.5-4.5); Potassium 4.5 mmol/L (3.4-5.0); Sodium 127 mmol/L (137-145)
[2023-08-17 11:29] LABS: Alveolar/Arterial O2 Gradient 70.5 mmHg; Base Excess ABG -3.5 mEq/l (+/-2.0); Fractional Inspired Oxygen 28 %; HCO3 ABG 21.1 mEq/l (22.0-26.0); Oxygen Content ABG 11.4 %vol (16.0-22.0); Oxygen Saturation ABG 96.5 % (95.0-100.0); Oxyhemoglobin 94.1 % THb (90.0-100.0); PCO2 ABG 36.1 mmHg (35.0-45.0); PO2 ABG 86.5 mmHg (80.0-100.0); PO2 FiO2 Ratio Arterial Blood 3.09 %; Total Hemoglobin 8.5 g/dL (12.0-18.0); pH ABG 7.385 (7.350-7.450)
[2023-08-17 11:30] LABS: Modified Allen's Test Pass; Site Drawn LEFT RADIAL
[2023-08-17 11:31] LABS: Device NASAL CANNULA
--- NOTE | 2023-08-17 11:32 | WPDUROPN2 ---
Progress Note: A&P Assessment and Plan (1) Calculus, ureteral: Code(s): N20.1 - Calculus of ureter Status: Acute Assessment and Plan: status post bilateral stent placement 08/16/2023. Cultures are pending blood culture preliminarily with Gram-negative rods. Overall is stable with normal blood pressure however remains tachypneic requiring nasal cannula and somewhat sleepy. Suspect this may be systemic illness due to sepsis. Would continue broad-spectrum antibiotics. Supportive care per medical service. Follow up cultures. Continue Krueger for now until clinical picture stabilizes Will need definitive stone management at some point down the line, however for now just supportive care and our service will follow. (2) Pyelonephritis: Code(s): N12 - Tubulo-interstitial nephritis, not specified as acute or chronic Status: Acute (3) ADAM (acute kidney injury): Code(s): N17.9 - Acute kidney failure, unspecified Status: Acute (4) Sepsis: Qualifiers: Sepsis acute organ dysfunction status: with acute organ dysfunction Severe sepsis acute organ dysfunction type: acute renal failure Acute renal failure type: with acute tubular necrosis Severe sepsis shock status: without septic shock Code(s): A41.9 - Sepsis, unspecified organism Status: Acute (5) UTI (urinary tract infection): Qualifiers: Urinary tract infection type: acute pyelonephritis Qualified Code(s): N10 - Acute pyelonephritis Code(s): N39.0 - Urinary tract infection, site not specified Status: Acute Subjective Subjective Date/Time Seen: 08/17/23 11:32 Interval history: overnight patient admitted to the IMU After bilateral ureteral stent placement. Remains tachycardic, normotensive, afebrile. Urine output is somewhat borderline, still quite fatigued and somewhat somnolent. Blood culture returned with Gram-negative rods. Tachypneic on 2-3 L of nasal cannula. Blood culture with Gram-negative rods Exam Const: General: uncomfortable ( fatigued, symmetric) Resp: Effort & Inspection: normal respiratory effort Cardio: Rate: tachycardic : Other: volume place with allan urine Objective Data Vital Signs Vital Signs: Vital Signs - 24 hr 08/16/23 14:24 08/16/23 15:03 08/16/23 15:46 Temperature 37.3 C 36.6 C 36.6 C Pulse Rate 130 H 125 H 120 H Respiratory Rate 22 H 20 20 Blood Pressure 122/71 137/85 118/63 Pulse Oximetry 96 96 Oxygen Delivery Room Air Oxygen Flow Rate 08/16/23 16:16 08/16/23 17:15 08/16/23 18:15 Temperature 36.7 C 36.6 C 36.7 C Pulse Rate 119 H 120 H 128 H Respiratory Rate 20 20 20 Blood Pressure 127/83 126/72 Pulse Oximetry 96 94 91 Oxygen Delivery Oxygen Flow Rate 08/16/23 19:50 08/16/23 22:40 08/16/23 23:24 Temperature 37.7 C H 38.6 C H Pulse Rate 127 H 115 H 115 H Respiratory Rate 22 H 30 H 30 H Blood Pressure 127/68 130/75 101/63 Pulse Oximetry 91 98 98 Oxygen Delivery Nasal Cannula Simple Face Mask Oxygen Flow Rate 2 8 08/16/23 23:40 08/16/23 20:00 08/16/23 20:00 Temperature Pulse Rate 114 H 133 H Respiratory Rate 32 H Blood Pressure 120/63 Pulse Oximetry 95 Oxygen Delivery Nasal Cannula Room Air Oxygen Flow Rate 2 08/16/23 23:55 08/17/23 00:10 08/17/23 00:25 Temperature 38.3 C H Pulse Rate 113 H 115 H 116 H Respiratory Rate 30 H 31 H 26 H Blood Pressure 102/54 L 110/62 127/76 Pulse Oximetry 97 96 96 Oxygen Delivery Nasal Cannula Nasal Cannula Nasal Cannula Oxygen Flow Rate 2 2 2 08/17/23 00:45 08/17/23 00:00 08/17/23 01:00 Temperature 37.1 C 36.6 C Pulse Rate 116 H 117 H Respiratory Rate 26 H 26 H Blood Pressure 124/76 138/94 H Pulse Oximetry 95 97 97 Oxygen Delivery Nasal Cannula Oxygen Flow Rate 2 08/17/23 02:00 08/17/23 02:00 08/17/23 02:59 Temperature 36.1 C L 36.3 C L Pulse Rate 120 H 119 H 120 H Respiratory Rate 24 H 20 Blood Pressure 144/
[2023-08-17 12:07] LABS: Glucose Point of Care 344 mg/dl (65-105)
[2023-08-17 12:34] LABS: Procalcitonin 7.4 ng/mL
[2023-08-17 13:18] LABS: Band Neutrophils Percent 21 % (0-6); Lymphocytes Absolute Manual 0.84 K/mm3 (1.1-4.5); Monocytes Absolute Manual 0.53 K/mm3 (0.1-0.90); Monocytes Percent Manual 5 % (3-9); Neutrophils Absolute Manual 9.22 K/mm3 (1.7-7.2); Neutrophils Percent Manual 66 % (46-73); Platelet Estimate Adequate (Adequate); Schistocytes None Seen; Total Cells Counted 100
[2023-08-17 13:19] LABS: Anisocytosis 1+; Ovalocytes 1+
--- NOTE | 2023-08-17 14:00 | PC.NURSE ---
On 08/17/23, the student, Latoya Taveras, provided care and completed [facility] documentation on this patient. I have reviewed the student's documentation and agree with the findings.
--- NOTE | 2023-08-17 14:34 | PCCCNOTE ---
On 08/17/23, the student, [Edilma Youssef], provided care and completed [facility] documentation on this patient. I have reviewed the student's documentation and agree with the findings.
[2023-08-17 16:49] LABS: Glucose Point of Care 266 mg/dl (65-105)
[2023-08-17] MEDS: LOPERAMIDE HCL 2 MG CAPSULE PO (17:23)
[2023-08-17 20:02] LABS: Glucose Point of Care 240 mg/dl (65-105)
[2023-08-17] MEDS: HYDROcodone/acetaminophen (*CRX) 5-325 MG TABLET 1 TAB PO (20:36)
[2023-08-17] MEDS: INSULIN GLARGINE (*BKC) 100 UNITS/ML 15 UNITS SUB-Q (20:37)
[2023-08-17] MEDS: busPIRone HCL 10 MG TABLET 20 MG PO (20:46)
--- NOTE | 2023-08-17 23:14 | PC.NURSE ---
Recieved report from Elsa KAUR at 2300. This RN taking over care.
[2023-08-18] VITALS (21 sets, daily range): BP systolic 133–165; BP diastolic 65–78; PULSE 95–114; RESP 20–26; TEMP 36.2–37; O2SAT 95–100
[2023-08-18] MEDS: VANCOMYCIN 1,500 MG/NS 500 ML 1,500 MG/500 ML BAG 250 MG IVPB (00:17)
[2023-08-18 05:14] LABS: Hemoglobin 7.9 g/dL (12.0-15.0); Mean Corpuscular HGB Conc 29.3 g/dl (32-36); Mean Corpuscular Hemoglobin 23.4 pg (26-34); Mean Corpuscular Volume 79.9 fl (80-100); Platelet Count Result 352 k/mm3 (150-375); Red Blood Count 3.38 M/mm3 (4.2-5.4); Red Cell Distribution Width 16.4 % (11.5-14.5); White Blood Count 9.3 K/mm3 (4.5-10.0)
[2023-08-18 05:23] LABS: Alanine Aminotransferase 13 U/L (6-35); Albumin Level 2.9 g/dL (3.5-5.1); Alkaline Phosphatase 100 U/L (38-126); Anion Gap 7 mmol/L (4-12); Aspartate Amino Transferase 19 U/L (14-36); Bilirubin,Total 0.6 mg/dL (0.2-1.3); Blood Urea Nitrogen 33 mg/dL (7-17); Calcium 8.6 mg/dL (8.4-10.2); Carbon Dioxide 21 mmol/L (22-30); Chloride 100 mmol/L (98-107); Estimated CRCL calculation 33 ml/min; Estimated Glomerular Filt Rate 18; Glucose 166 mg/dL (65-110); Potassium 4.3 mmol/L (3.4-5.0); Sodium 128 mmol/L (137-145)
[2023-08-18 05:35] LABS: Iron 16 ug/dL (37-170)
[2023-08-18 05:44] LABS: Percent Iron Saturation 8 % (20-50)
[2023-08-18 05:48] LABS: Anisocytosis 1+; Band Neutrophils Percent 10 % (0-6); Burr Cells 1+; Eosinophils Absolute Manual 0.27 K/mm3 (0.02-0.50); Eosinophils Percent Manual 3 % (0-4); Lymphocytes Absolute Manual 0.46 K/mm3 (1.1-4.5); Neutrophils Absolute Manual 8.55 K/mm3 (1.7-7.2); Neutrophils Percent Manual 82 % (46-73); Ovalocytes 1+; Platelet Estimate Increased (Adequate); Schistocytes None Seen; Total Cells Counted 100
[2023-08-18 06:32] LABS: Folic Acid 14.3 ng/mL (2.76->20); Vitamin B12 > 1000.0 pg/mL (239-931)
[2023-08-18 08:01] LABS: Glucose Point of Care 165 mg/dl (65-105)
[2023-08-18] MEDS: FENOFIBRATE 160 MG TABLET PO (10:14)
[2023-08-18] MEDS: busPIRone HCL 10 MG TABLET PO (10:14)
[2023-08-18] MEDS: buPROPion HCL XL (24 HR) 150 MG TABCR 300 MG PO (10:14)
[2023-08-18] MEDS: SERTRALINE HCL 50 MG TABLET 100 MG PO (10:15)
[2023-08-18] MEDS: PANTOPRAZOLE SODIUM IV 40 MG VIAL IV PUSH (10:19)
[2023-08-18] MEDS: CEFEPIME 2 GM/NS 50 ML BAG IVPB ×2 (10:19→23:11)
--- NOTE | 2023-08-18 10:41 | WPDUROPN2 ---
Progress Note: A&P Assessment and Plan (1) Calculus, ureteral: Code(s): N20.1 - Calculus of ureter Status: Acute Assessment and Plan: status post bilateral stent placement 08/16/2023. urine culture with Klebsiella, blood culture with Gram-negative rods. Overall is stable with normal blood pressure tachycardic but improving and remains tachypneic requiring nasal cannula. Mental status seems somewhat improved today Suspect this may be systemic illness due to sepsis. Would continue broad-spectrum antibiotics and tailor to culture as per primary care service, likely needs 2 weeks of antibiotics. Supportive care per medical service. Continue Krueger for now until clinical picture stabilizes Will need definitive stone management at some point down the line, however for now just supportive care and our service will follow. (2) Pyelonephritis: Code(s): N12 - Tubulo-interstitial nephritis, not specified as acute or chronic Status: Acute (3) ADAM (acute kidney injury): Code(s): N17.9 - Acute kidney failure, unspecified Status: Acute Assessment and Plan: creatinine increased today to 2.7, suspect this may be slight climb due to sepsis. Monitor closely. Urine output seems reasonably preserved. If continues to climb tomorrow consider CT versus renal ultrasound to ensure stents are appropriate position. However, she has had resolution of her flank pain and thus I think it is most likely this is not due to ongoing obstruction (4) Sepsis: Qualifiers: Sepsis acute organ dysfunction status: with acute organ dysfunction Severe sepsis acute organ dysfunction type: acute renal failure Acute renal failure type: with acute tubular necrosis Severe sepsis shock status: without septic shock Code(s): A41.9 - Sepsis, unspecified organism Status: Acute (5) UTI (urinary tract infection): Qualifiers: Urinary tract infection type: acute pyelonephritis Qualified Code(s): N10 - Acute pyelonephritis Code(s): N39.0 - Urinary tract infection, site not specified Status: Acute Subjective Subjective Date/Time Seen: 08/18/23 10:41 Interval history: Remains on the floor with nasal cannula in place, overall feels slightly improved but still fatigued and somewhat short of breath. She is having some bladder spasms. Urine culture resulted with greater than 100,000 Klebsiella, blood cultures have Gram-negative rods. Urine output has been adequate. Her white blood cell count is down to 9.3 today, hemoglobin 7.9 from 9.2, creatinine is up to 2.7. Exam Narrative: Lying in bed, in no major distress, remains somewhat tachypneic on nasal cannula, mental status is improved today, Resp: Effort & Inspection: abnormal respiratory effort Cardio: Rate: tachycardic Urinary Catheter: Urinary Catheter: patent and draining ( urine yellow, with some mucoid debris) Objective Data Vital Signs Vital Signs: Vital Signs - 24 hr 08/17/23 12:17 08/17/23 12:00 08/17/23 12:00 Temperature 37.6 C H Pulse Rate 109 H 116 H Respiratory Rate 20 Blood Pressure 117/60 Pulse Oximetry 95 95 Oxygen Delivery Nasal Cannula Oxygen Flow Rate 2 08/17/23 14:00 08/17/23 15:42 08/17/23 16:00 Temperature 36.9 C Pulse Rate 110 H 112 H 115 H Respiratory Rate 23 H Blood Pressure 114/72 Pulse Oximetry 99 Oxygen Delivery Oxygen Flow Rate 08/17/23 18:00 08/17/23 16:00 08/17/23 21:05 Temperature 36.6 C Pulse Rate 87 109 H Respiratory Rate 20 Blood Pressure 157/67 H Pulse Oximetry 99 98 Oxygen Delivery Nasal Cannula Oxygen Flow Rate 2 08/17/23 20:00 08/17/23 20:00 08/17/23 22:00 Temperature Pulse Rate 100 103 H Respiratory Rate Blood Pressure Pulse Oximetry 98 Oxygen Delivery Nasal Cannula Oxygen Flow Rate 2 08/18/23 00:00 08/17/23 23:15 08/17/23 23:15 Temperature 36.4 C Pulse Rate 98 98 98 Respirat
[2023-08-18] MEDS: ONDANSETRON INJ 4 MG/2 ML VIAL IV PUSH (11:15)
[2023-08-18 11:50] LABS: Glucose Point of Care 208 mg/dl (65-105)
--- NOTE | 2023-08-18 11:50 | PM.IMPN ---
Progress Note: A&P Assessment and Plan (1) Sepsis: Qualifiers: Sepsis acute organ dysfunction status: with acute organ dysfunction Severe sepsis acute organ dysfunction type: acute renal failure Acute renal failure type: with acute tubular necrosis Severe sepsis shock status: without septic shock Code(s): A41.9 - Sepsis, unspecified organism Status: Acute Assessment and Plan: Patient presents with abdominal pain and met SIRS criteria with elevated HR, RR, WBC, lactic (2.7). PCT 4.7. BP stable She received appropriate fluid resuscitation. UA was consistent with UTI. UCx growing klebsiella that is andrea sensitive BCx 08/15 Klebsiella pneumoniae CXR showing suggestion of mild patchy rather diffuse bilateral pulmonary infiltrates?(CT Abd showing clear lung bases) CT abd/pelvis with approximately 6 x 7 mm obstructing proximal right ureteral calculus with moderate right hydronephrosis, prominent perinephric fluid and fat stranding. Bilateral nephrolithiasis. Bilateral renal indeterminate space-occupying lesions. Splenomegaly. Right adrenal myelolipoma. 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 Status post hysterectomy Source of sepsis: UTI/Pyelonephritis/septic renal stone She was started on ceftriaxone on 08/15. given patient appearance and vital signs, escalating ABX to vancomycin and cefepime for urine and respiratory coverage. WBC normal and bandemia better. Stop Vancomycin. Continue Cefepime but de-escalate once BCx sensitivities are known. Will repeat BCx to ensure clearance given the 'space-occupying lesions' Monitor closely (2) Hypoxia: Code(s): R09.02 - Hypoxemia Status: Acute Assessment and Plan: Patieint hypoxic requiring a couple of liters of O2. CXR as above. ABG 7.38/36/86 on 2L She is fluid positive and appears edematous. Consider fluid overload with poor UOP IV fluids stopped yesterday Consider Lasix but Cr worse today so will hold off Add neb treatments. Check CXR (3) Calculus, ureteral: Code(s): N20.1 - Calculus of ureter Status: Acute Assessment and Plan: CT abdomen/pelvis showing approximately 6 x 7 mm obstructing proximal right ureteral calculus with moderate right hydronephrosis, prominent perinephric fluid and fat stranding with bilateral nephrolithiasis. Bilateral renal indeterminate space-occupying lesions Urology consulted and appreciate their input. Patient underwent cystoscopy with bilateral retrograde pyelogram and bilateral ureteral stent placement on 08/16/23 Abx as above Follow (4) Pyelonephritis: Code(s): N12 - Tubulo-interstitial nephritis, not specified as acute or chronic Status: Acute Assessment and Plan: CT abd/pelvis: Approximately 6 x 7 mm obstructing proximal right ureteral calculus with moderate right hydronephrosis, prominent perinephric fluid and fat stranding and bilateral renal indeterminate space-occupying lesions. UA consistent with UTI. BCx positive as well Continue current abx. Monitor for the development of renal abscess. Repeat BCx (5) ADAM (acute kidney injury): Code(s): N17.9 - Acute kidney failure, unspecified Status: Acute Assessment and Plan: Patient has normal baseline renal function; previously 0.74 on 03/12/2023 Cr 1.6 on admission. Suspect injury secondary to post-obstruction process, ATN from sepsis and dehydration UOP p750mL yesterday but up to 800mL so far today. Proceed with renal evaluation Nephrology consult tomorrow if no improvement Monitor UOP, renal function and electrolytes. (6) Type 2 diabetes mellitus with hyperglycemia: Code(s): E11.65 - Type 2 diabetes mellitus with hyperglycemia Status: Acute Assessment and Plan: A1c 10.4. Initial blood glucose 472. The patient's blood glucose was reviewed on 08/17 She was on Amaryl, Actos at home which we will hold Glucose remains poorly controlled. Cont
[2023-08-18] MEDS: INSULIN ASPART (*BKC) 100 UNITS/ML SUB-Q ×4 (12:09→16:39)
[2023-08-18] MEDS: FERROUS SULFATE 325 MG TABLET DR PO (12:41)
[2023-08-18 14:09] LABS: Anion Gap 8 mmol/L (4-12); Blood Urea Nitrogen 35 mg/dL (7-17); Calcium 8.5 mg/dL (8.4-10.2); Carbon Dioxide 18 mmol/L (22-30); Chloride 99 mmol/L (98-107); Creatine Kinase 31 U/L (30-135); Estimated CRCL calculation 34 ml/min; Estimated Glomerular Filt Rate 19; Glucose 255 mg/dL (65-110); Potassium 4.3 mmol/L (3.4-5.0); Sodium 125 mmol/L (137-145)
[2023-08-18] MEDS: IPRATROPIUM 0.5 MG/ALBUTEROL SULFATE 2.5 MG AMPUL.NEB 3 ML INHALATION ×2 (14:29→20:01)
[2023-08-18 16:38] LABS: Glucose Point of Care 201 mg/dl (65-105)
[2023-08-18] MEDS: ACETAMINOPHEN 325 MG TABLET 650 MG PO (16:51)
[2023-08-18 17:47] LABS: Creatinine Urine 27.5 mg/dL; Total Protein Urine Random 113 mg/dL; Ur Ttl Prot Creatinine Ratio 4.11 mg/mg (0-0.20); Urea Random Urine 170 MG/DL
[2023-08-18 17:51] LABS: Sodium Urine Random 16 meq/L
[2023-08-18 18:23] LABS: Eosinophil Urine Rare % (None Seen); Urine Eos QC 2nd Tech Confirmed
[2023-08-18 19:46] LABS: Glucose Point of Care 196 mg/dl (65-105)
[2023-08-18] MEDS: busPIRone HCL 10 MG TABLET 20 MG PO (20:12)
[2023-08-18] MEDS: INSULIN GLARGINE (*BKC) 100 UNITS/ML 15 UNITS SUB-Q (20:13)
[2023-08-18] MEDS: QUEtiapine FUMARATE 100 MG TABLET PO (20:13)
[2023-08-19] VITALS (28 sets, daily range): BP systolic 125–153; BP diastolic 69–80; PULSE 94–110; RESP 18–24; TEMP 36.1–36.8; O2SAT 93–99; BMI 55.2
[2023-08-19] MEDS: IPRATROPIUM 0.5 MG/ALBUTEROL SULFATE 2.5 MG AMPUL.NEB 3 ML INHALATION ×4 (02:47→20:09)
[2023-08-19 04:18] LABS: Basophils Percent Auto 0.2 % (0.2-1.2); Eosinophils Absolute Auto 0.4 K/mm3 (0-0.3); Hematocrit 27.3 % (37.0-47.0); Immature Granulocyte Absolute 0.08 K/mm3 (0.00-0.031); Immature Granulocyte Percent A 0.9 % (0-0.5); Lymphocytes Absolute Auto 0.53 K/mm3 (0.9-3.2); Lymphocytes Percent Auto 5.6 % (18.3-44.2); Mean Corpuscular HGB Conc 29.3 g/dl (32-36); Mean Corpuscular Hemoglobin 23.5 pg (26-34); Mean Corpuscular Volume 80.3 fl (80-100); Mean Platelet Volume 10.1 fl (7.4-10.4); Monocytes Absolute Auto 0.7 K/mm3 (0.1-0.6); Monocytes Percent Auto 7.2 % (2.6-8.5); Neutrophils Absolute Auto 7.7 K/mm3 (1.3-6.7); Neutrophils Percent Auto 82.1 % (45.5-73.1); Platelet Count Result 328 k/mm3 (150-375); Red Cell Distribution Width 16.6 % (11.5-14.5); White Blood Count 9.4 K/mm3 (4.5-10.0)
[2023-08-19 04:33] LABS: Albumin Level 3.1 g/dL (3.5-5.1); Anion Gap 9 mmol/L (4-12); Blood Urea Nitrogen 41 mg/dL (7-17); Calcium 8.6 mg/dL (8.4-10.2); Carbon Dioxide 20 mmol/L (22-30); Chloride 98 mmol/L (98-107); Estimated CRCL calculation 34 ml/min; Estimated Glomerular Filt Rate 19; Glucose 159 mg/dL (65-110); Magnesium 2.2 mg/dL (1.6-2.3); Potassium 4.2 mmol/L (3.4-5.0); Sodium 127 mmol/L (137-145)
[2023-08-19 05:06] LABS: Anisocytosis 1+; Hypochromasia 1+; Ovalocytes 1+; Platelet Estimate Adequate (Adequate); Schistocytes None Seen
[2023-08-19] MEDS: ACETAMINOPHEN 325 MG TABLET 650 MG PO ×3 (05:25→18:53)
--- NOTE | 2023-08-19 06:28 | WPDUROPN2 ---
Progress Note: A&P Assessment and Plan (1) Pyelonephritis: Code(s): N12 - Tubulo-interstitial nephritis, not specified as acute or chronic Status: Acute (2) Calculus, ureteral: Code(s): N20.1 - Calculus of ureter Status: Acute Assessment and Plan: Follow-up as outpatient to arrange for mgmt. considerable bilat. stone burden. Mgmt. likely best with bilateral ureteroscopy give body habitus (ESWL may be minimally effective) Subjective Subjective Date/Time Seen: 08/19/23 06:28 Interval history: Mild bladder spasms with bilat. uteteral stents Review of Systems Cardiovascular: Cardiovascular: Denies chest pain, Denies lightheadedness, Denies palpitations and Denies dyspnea Respiratory: Respiratory: Denies dyspnea Gastrointestinal: Gastrointestinal: Denies diarrhea, Denies nausea and Denies vomiting Genitourinary: Genitourinary: Denies hematuria and Denies dysuria Endocrine: Endocrine: Denies palpitations Exam Const: General: no acute distress Resp: Effort & Inspection: normal respiratory effort GI: Inspection: non-distended GI Palp: No abdominal tenderness and No Guarding due to palpation present (GI) Auscultation: normal bowel sounds Objective Data Vital Signs Vital Signs: Vital Signs - 24 hr 08/18/23 07:27 08/18/23 08:38 08/18/23 11:39 Temperature 98.3 F 97.9 F Pulse Rate 110 H 102 H Respiratory Rate 26 H 24 H Blood Pressure 160/74 H 144/77 H Pulse Oximetry 98 100 Oxygen Delivery Nasal Cannula Oxygen Flow Rate 2 08/18/23 08:00 08/18/23 12:00 08/18/23 13:34 Temperature Pulse Rate Respiratory Rate Blood Pressure Pulse Oximetry 99 100 Oxygen Delivery Nasal Cannula Nasal Cannula Nasal Cannula Oxygen Flow Rate 2 2 2 08/18/23 14:31 08/18/23 14:32 08/18/23 14:39 Temperature Pulse Rate 101 H 107 H Respiratory Rate 22 H 21 H Blood Pressure Pulse Oximetry 95 Oxygen Delivery Nasal Cannula Oxygen Flow Rate 2 08/18/23 08:00 08/18/23 10:00 08/18/23 12:00 Temperature Pulse Rate 111 H 110 H 103 H Respiratory Rate Blood Pressure Pulse Oximetry Oxygen Delivery Oxygen Flow Rate 08/18/23 14:00 08/18/23 16:00 08/18/23 16:00 Temperature 98.3 F Pulse Rate 105 H 99 103 H Respiratory Rate 24 H Blood Pressure 165/78 H Pulse Oximetry 98 Oxygen Delivery Oxygen Flow Rate 08/18/23 16:00 08/18/23 18:00 08/18/23 19:53 Temperature Pulse Rate 106 H Respiratory Rate Blood Pressure Pulse Oximetry 98 98 Oxygen Delivery Nasal Cannula Nasal Cannula Oxygen Flow Rate 2 2 08/18/23 20:02 08/18/23 20:02 08/18/23 20:00 Temperature 97.1 F L Pulse Rate 96 96 Respiratory Rate 23 H 21 H Blood Pressure 135/66 Pulse Oximetry 96 99 Oxygen Delivery Nasal Cannula Oxygen Flow Rate 2 08/18/23 20:00 08/18/23 20:21 08/18/23 22:00 Temperature Pulse Rate 95 95 96 Respiratory Rate 22 H Blood Pressure Pulse Oximetry Oxygen Delivery Oxygen Flow Rate 08/18/23 23:20 08/19/23 00:00 08/19/23 00:20 Temperature 97.0 F L Pulse Rate 100 96 Respiratory Rate 22 H Blood Pressure 139/77 Pulse Oximetry 96 98 Oxygen Delivery Nasal Cannula Oxygen Flow Rate 2 08/19/23 02:00 08/19/23 02:47 08/19/23 03:33 Temperature Pulse Rate 99 100 Respiratory Rate 24 H Blood Pressure Pulse Oximetry 98 Oxygen Delivery Nasal Cannula Oxygen Flow Rate 2 08/19/23 03:10 08/19/23 04:05 08/19/23 04:00 Temperature 97.0 F L Pulse Rate 99 102 H 106 H Respiratory Rate 22 H 24 H Blood Pressure 153/80 H Pulse Oximetry 99 Oxygen Delivery Oxygen Flow Rate 08/19/23 06:00 Temperature Pulse Rate 103 H Respiratory Rate Blood Pressure Pulse Oximetry Oxygen Delivery Oxygen Flow Rate Intake/Output Intake/Output: Intake & Output 08/16/23 08/17/23 08/18/23 08/19/23 23:59 23:59 23:59 23:59 Intake Total 2050 2100 1810 55
[2023-08-19 08:17] LABS: Glucose Point of Care 180 mg/dl (65-105)
[2023-08-19] MEDS: FENOFIBRATE 160 MG TABLET PO (08:44)
[2023-08-19] MEDS: FERROUS SULFATE 325 MG TABLET DR PO (08:45)
[2023-08-19] MEDS: busPIRone HCL 10 MG TABLET PO (08:45)
[2023-08-19] MEDS: SERTRALINE HCL 50 MG TABLET 100 MG PO (08:45)
[2023-08-19] MEDS: HYOSCYAMINE SULFATE 0.125 MG TABLET PO ×3 (08:45→21:15)
[2023-08-19] MEDS: PANTOPRAZOLE 40 MG TABLET PO (08:45)
[2023-08-19] MEDS: buPROPion HCL XL (24 HR) 150 MG TABCR 300 MG PO (08:45)
[2023-08-19] MEDS: INSULIN ASPART (*BKC) 100 UNITS/ML SUB-Q ×4 (08:46→16:59)
[2023-08-19] MEDS: cefTRIAXone 2 GM/NS 100 ML 2 GM/100 ML BAG IVPB (08:46)
--- NOTE | 2023-08-19 11:19 | P.CONNP_ITS ---
Assessment and Plan Assessment and plan (1) ADAM (acute kidney injury): Code(s): N17.9 - Acute kidney failure, unspecified Status: Acute Assessment and Plan: * normal baseline creatinine (creatinine of 0.74mg/dl in March 2023) * however, given her history of microalbuminuria, she have some degree of renal insufficiency * creatinine on admission 1.6mg/dl...now up to 2.7mg/dl * evaluation to date noted: * CT scan with obstructive uropathy secondary to kidney stone * UA significant for infection * urine electrolytes non-prerenal * proteinuria * rare urine eosinophils * CPK normal * suspect multifactorial etiology: * ATN from infection/sepsis * obstruction from nephrolithiasis * prerenal factors * 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 * follow repeat labs and UOP (2) Sepsis: Qualifiers: Sepsis acute organ dysfunction status: with acute organ dysfunction Severe sepsis acute organ dysfunction type: acute renal failure Acute renal failure type: with acute tubular necrosis Severe sepsis shock status: without s eptic shock Code(s): A41.9 - Sepsis, unspecified organism Status: Acute Assessment and Plan: * as noted by tachycardia, tachypena, leukocytosis, lactic acidosis, and ADAM * s/p aggressive IVF resuscitation * urine and blood culture with Klebsiella (urosepsis) * on antibiotics * follow repeat cultures * monitor hemodynamics (3) Pyelonephritis: Code(s): N12 - Tubulo-interstitial nephritis, not specified as acute or chronic Status: Acute Assessment and Plan: * CT abd/pelvis with prominent perinephric fluid and fat stranding * UA c/w with UTI * see #2 (4) Calculus, ureteral: Code(s): N20.1 - Calculus of ureter Status: Acute Assessment and Plan: * CT abdomen/pelvis showing approximately 6 x 7 mm obstructing proximal right ureteral calculus with moderate right hydronephrosis * Urology following * s/p cystoscopy with bilateral retrograde pyelogram and bilateral ureteral stent placement (on 08/15) * will need definitive stone management after discharge * continue supportive therapy (5) Anemia: Code(s): D64.9 - Anemia, unspecified Status: Acute Assessment and Plan: * due to ADAM and acute illness * anemia studies noted - iron deficient as well * on iron * follow H/H (6) Type 2 diabetes mellitus with hyperglycemia: Code(s): E11.65 - Type 2 diabetes mellitus with hyperglycemia Status: Chronic Assessment and Plan: * follow accu-cheks * glycemic control per hospitalists I will continue follow the patient with you while she remains hospitalized and make further recommendations as deemed necessary. Thank you for allowing me to participate in the care of this patient. History of Present Illness Reason for Consult Consult date: 08/19/23 Reason for consult: acute renal failure Chief Complaint Chief complaint: Ureteral Stone, UTI History of Present Illness Narrative: The patient is a 58-year-old female with a past medical history as outlined below who presented to [facility] for further evaluation of nausea, dysuria, and right lower quadrant pain. The patient reports that the lower abdominal pain has been increasingly getting worse over the last several days with radiation into the right flank and associated with intermittent nausea without vomiting but reports significant dry heaving. Initially, the abdominal pain was somewha
--- NOTE | 2023-08-19 11:19 | PM.CNNEP ---
Assessment and Plan Assessment and plan (1) ADAM (acute kidney injury): Code(s): N17.9 - Acute kidney failure, unspecified Status: Acute Assessment and Plan: normal baseline creatinine (creatinine of 0.74mg/dl in March 2023) however, given her history of microalbuminuria, she have some degree of renal insufficiency creatinine on admission 1.6mg/dl...now up to 2.7mg/dl evaluation to date noted: CT scan with obstructive uropathy secondary to kidney stone UA significant for infection urine electrolytes non-prerenal proteinuria rare urine eosinophils CPK normal suspect multifactorial etiology: ATN from infection/sepsis obstruction from nephrolithiasis prerenal factors 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 follow repeat labs and UOP (2) Sepsis: Qualifiers: Sepsis acute organ dysfunction status: with acute organ dysfunction Severe sepsis acute organ dysfunction type: acute renal failure Acute renal failure type: with acute tubular necrosis Severe sepsis shock status: without septic shock Code(s): A41.9 - Sepsis, unspecified organism Status: Acute Assessment and Plan: as noted by tachycardia, tachypena, leukocytosis, lactic acidosis, and ADAM s/p aggressive IVF resuscitation urine and blood culture with Klebsiella (urosepsis) on antibiotics follow repeat cultures monitor hemodynamics (3) Pyelonephritis: Code(s): N12 - Tubulo-interstitial nephritis, not specified as acute or chronic Status: Acute Assessment and Plan: CT abd/pelvis with prominent perinephric fluid and fat stranding UA c/w with UTI see #2 (4) Calculus, ureteral: Code(s): N20.1 - Calculus of ureter Status: Acute Assessment and Plan: CT abdomen/pelvis showing approximately 6 x 7 mm obstructing proximal right ureteral calculus with moderate right hydronephrosis Urology following s/p cystoscopy with bilateral retrograde pyelogram and bilateral ureteral stent placement (on 08/15) will need definitive stone management after discharge continue supportive therapy (5) Anemia: Code(s): D64.9 - Anemia, unspecified Status: Acute Assessment and Plan: due to ADAM and acute illness anemia studies noted - iron deficient as well on iron follow H/H (6) Type 2 diabetes mellitus with hyperglycemia: Code(s): E11.65 - Type 2 diabetes mellitus with hyperglycemia Status: Chronic Assessment and Plan: follow accu-cheks glycemic control per hospitalists I will continue follow the patient with you while she remains hospitalized and make further recommendations as deemed necessary. Thank you for allowing me to participate in the care of this patient. History of Present Illness Reason for Consult Consult date: 08/19/23 Reason for consult: acute renal failure Chief Complaint Chief complaint: Ureteral Stone, UTI History of Present Illness Narrative: The patient is a 58-year-old female with a past medical history as outlined below who presented to [facility] for further evaluation of nausea, dysuria, and right lower quadrant pain. The patient reports that the lower abdominal pain has been increasingly getting worse over the last several days with radiation into the right flank and associated with intermittent nausea without vomiting but reports significant dry heaving. Initially, the abdominal pain was somewhat intermittent but has progressively worsened over time. She states that she was reportedly treated for a urinary tract infection late last month with apparently 2 rounds of antibiotics which were prescribed by her primary care physician. However, despite antibiotic therapy, she still continues to have persistent dysuria and polyuria. She felt the symptoms seem to acutely worsened in the last 3 or 4 days in conjunction with the abdominal and right flank pain. Other ass
--- NOTE | 2023-08-19 11:56 | PM.IMPN ---
Progress Note: A&P Assessment and Plan (1) Sepsis: Qualifiers: Sepsis acute organ dysfunction status: with acute organ dysfunction Severe sepsis acute organ dysfunction type: acute renal failure Acute renal failure type: with acute tubular necrosis Severe sepsis shock status: without septic shock Code(s): A41.9 - Sepsis, unspecified organism Status: Acute Assessment and Plan: Patient presents with abdominal pain and met SIRS criteria with elevated HR, RR, WBC, lactic (2.7). PCT 4.7. BP stable She received appropriate fluid resuscitation. UA was consistent with UTI. UCx growing klebsiella that is andrea sensitive BCx 08/15 Klebsiella pneumoniae with same sensitivity pattern Repeat BCx 08/17 pending MRSA screen negaitve CXR showing suggestion of mild patchy rather diffuse bilateral pulmonary infiltrates?(CT Abd showing clear lung bases) CT abd/pelvis with approximately 6 x 7 mm obstructing proximal right ureteral calculus with moderate right hydronephrosis, prominent perinephric fluid and fat stranding. Bilateral nephrolithiasis. Bilateral renal indeterminate space-occupying lesions. Splenomegaly. Right adrenal myelolipoma. 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 Status post hysterectomy Source of sepsis: UTI/Pyelonephritis/septic renal stone She was started on ceftriaxone on 08/15 but changed to vancomycin and cefepime for urine and respiratory coverage. WBC normal Vancomycin stopped. Cefepime de-escalated to Rocephin Repeat BCx pending Monitor closely (2) Hypoxia: Code(s): R09.02 - Hypoxemia Status: Acute Assessment and Plan: Patieint hypoxic requiring a couple of liters of O2. CXR as above. ABG 7.38/36/86 on 2L She is fluid positive and appears edematous. Consider fluid overload with poor UOP IV fluids stopped yesterday Consider Lasix but ADAM RepeatCXR showing mild atelectasis. Weaned to room air. Continue neb treatments. (3) Calculus, ureteral: Code(s): N20.1 - Calculus of ureter Status: Acute Assessment and Plan: CT abdomen/pelvis showing approximately 6 x 7 mm obstructing proximal right ureteral calculus with moderate right hydronephrosis, prominent perinephric fluid and fat stranding with bilateral nephrolithiasis. Bilateral renal indeterminate space-occupying lesions Urology consulted and appreciate their input. Patient underwent cystoscopy with bilateral retrograde pyelogram and bilateral ureteral stent placement on 08/16/23 Abx as above. Will need definitive stone management after discharge Follow (4) Pyelonephritis: Code(s): N12 - Tubulo-interstitial nephritis, not specified as acute or chronic Status: Acute Assessment and Plan: CT abd/pelvis: Approximately 6 x 7 mm obstructing proximal right ureteral calculus with moderate right hydronephrosis, prominent perinephric fluid and fat stranding and bilateral renal indeterminate space-occupying lesions. UA consistent with UTI. Urine and blood cultures positive with Klebsiella. Continue current abx as above Follow-up on repeat blood cultures (5) ADAM (acute kidney injury): Code(s): N17.9 - Acute kidney failure, unspecified Status: Acute Assessment and Plan: Patient has normal baseline renal function; previously 0.74 on 03/12/2023 Cr 1.6 on admission. Suspect injury secondary to post-obstruction process, ATN from sepsis and dehydration UOP 2300mL yesterday and 1350mL so far today. Possibly post-ATN diuresis Prot/Cr 4gm. Jake 16 and FENa 1.2% to suggest intrinsic renal disease Rare eosinophils with slight elevated of serum eosinophil cough (400 cells). TCK normal. Nephrology consulted Monitor UOP, renal function and electrolytes. (6) Type 2 diabetes mellitus with hyperglycemia: Code(s): E11.65 - Type 2 diabetes mellitus with hyperglycemia Status: Acute Assessment and Plan: A1c 10.4. Initial blood glu
[2023-08-19 11:58] LABS: Glucose Point of Care 221 mg/dl (65-105)
--- NOTE | 2023-08-19 13:45 | PCOTNOTE ---
Patient out of the room at this time. Per RN, Patient is down having an ultrasound.
[2023-08-19 16:29] LABS: Glucose Point of Care 159 mg/dl (65-105)
[2023-08-19 20:40] LABS: Glucose Point of Care 182 mg/dl (65-105)
[2023-08-19] MEDS: busPIRone HCL 10 MG TABLET 20 MG PO (21:15)
[2023-08-19] MEDS: QUEtiapine FUMARATE 100 MG TABLET PO (21:16)
[2023-08-19] MEDS: INSULIN GLARGINE (*BKC) 100 UNITS/ML 15 UNITS SUB-Q (21:17)
[2023-08-20] VITALS (21 sets, daily range): BP systolic 125–161; BP diastolic 56–81; PULSE 92–105; RESP 16–24; TEMP 36.2–37.5; O2SAT 93–97
[2023-08-20] MEDS: IPRATROPIUM 0.5 MG/ALBUTEROL SULFATE 2.5 MG AMPUL.NEB 3 ML INHALATION ×3 (01:58→14:19)
[2023-08-20 04:35] LABS: Basophils Percent Auto 0.2 % (0.2-1.2); Eosinophils Absolute Auto 0.3 K/mm3 (0-0.3); Eosinophils Percent Auto 3.6 % (0-4.4); Hematocrit 28.3 % (37.0-47.0); Hemoglobin 8.3 g/dL (12.0-15.0); Immature Granulocyte Absolute 0.16 K/mm3 (0.00-0.031); Immature Granulocyte Percent A 1.9 % (0-0.5); Lymphocytes Absolute Auto 0.54 K/mm3 (0.9-3.2); Lymphocytes Percent Auto 6.4 % (18.3-44.2); Mean Corpuscular HGB Conc 29.3 g/dl (32-36); Mean Corpuscular Hemoglobin 23.1 pg (26-34); Mean Corpuscular Volume 78.8 fl (80-100); Mean Platelet Volume 9.8 fl (7.4-10.4); Monocytes Absolute Auto 0.7 K/mm3 (0.1-0.6); Monocytes Percent Auto 8.6 % (2.6-8.5); Neutrophils Absolute Auto 6.7 K/mm3 (1.3-6.7); Neutrophils Percent Auto 79.3 % (45.5-73.1); Platelet Count Result 350 k/mm3 (150-375); Red Blood Count 3.59 M/mm3 (4.2-5.4); Red Cell Distribution Width 16.6 % (11.5-14.5); White Blood Count 8.4 K/mm3 (4.5-10.0)
[2023-08-20 04:44] LABS: Albumin Level 3.2 g/dL (3.5-5.1); Anion Gap 8 mmol/L (4-12); Blood Urea Nitrogen 37 mg/dL (7-17); Calcium 9.1 mg/dL (8.4-10.2); Carbon Dioxide 23 mmol/L (22-30); Chloride 100 mmol/L (98-107); Estimated CRCL calculation 34 ml/min; Estimated Glomerular Filt Rate 19; Glucose 142 mg/dL (65-110); Magnesium 2.4 mg/dL (1.6-2.3); Phosphorus 4.7 mg/dL (2.5-4.5); Potassium 4.2 mmol/L (3.4-5.0); Sodium 131 mmol/L (137-145)
[2023-08-20] MEDS: HYOSCYAMINE SULFATE 0.125 MG TABLET PO ×2 (05:44→08:45)
[2023-08-20 05:49] LABS: Anisocytosis 1+; Hypochromasia 1+; Ovalocytes 1+; Platelet Estimate Adequate (Adequate); Schistocytes None Seen
[2023-08-20] MEDS: FERROUS SULFATE 325 MG TABLET DR PO (08:45)
[2023-08-20] MEDS: PANTOPRAZOLE 40 MG TABLET PO (08:45)
[2023-08-20] MEDS: ONDANSETRON INJ 4 MG/2 ML VIAL IV PUSH (08:45)
[2023-08-20] MEDS: busPIRone HCL 10 MG TABLET PO (08:45)
[2023-08-20] MEDS: FENOFIBRATE 160 MG TABLET PO (08:45)
[2023-08-20] MEDS: buPROPion HCL XL (24 HR) 150 MG TABCR 300 MG PO (08:45)
[2023-08-20] MEDS: SERTRALINE HCL 50 MG TABLET 100 MG PO (08:45)
[2023-08-20] MEDS: cefTRIAXone 2 GM/NS 100 ML 2 GM/100 ML BAG IVPB (08:46)
[2023-08-20 09:01] LABS: Glucose Point of Care 194 mg/dl (65-105)
[2023-08-20] MEDS: INSULIN ASPART (*BKC) 100 UNITS/ML SUB-Q ×4 (09:34→16:48)
--- NOTE | 2023-08-20 11:17 | P.PNNP_ITS ---
Progress Note: A&P Assessment and Plan (1) ADAM (acute kidney injury): Code(s): N17.9 - Acute kidney failure, unspecified Status: Acute Assessment and Plan: * normal baseline creatinine (creatinine of 0.74mg/dl in March 2023) * however, given her history of microalbuminuria, she have some degree of renal insufficiency * creatinine on admission 1.6mg/dl * evaluation to date noted: * CT scan with obstructive uropathy secondary to kidney stone * UA significant for infection * urine electrolytes non-prerenal * proteinuria * rare urine eosinophils * CPK normal * suspect multifactorial etiology: * ATN from infection/sepsis * obstruction from nephrolithiasis * prerenal factors * 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 * follow repeat labs and UOP (2) Sepsis: Qualifiers: Sepsis acute organ dysfunction status: with acute organ dysfunction Severe sepsis acute organ dysfunction type: acute renal failure Acute renal failure type: with acute tubular necrosis Severe sepsis shock status: without septic shock Code(s): A41.9 - Sepsis, unspecified organism Status: Acute Assessment and Plan: * as noted by tachycardia, tachypena, leukocytosis, lactic acidosis, and ADAM on presentation * s/p aggressive IVF resuscitation * urine and blood culture with Klebsiella (urosepsis) * on antibiotics * follow repeat cultures * monitor hemodynamics (3) Pyelonephritis: Code(s): N12 - Tubulo-interstitial nephritis, not specified as acute or chronic Status: Acute Assessment and Plan: * CT abd/pelvis with prominent perinephric fluid and fat stranding * UA c/w with UTI * see #2 (4) Calculus, ureteral: Code(s): N20.1 - Calculus of ureter Status: Acute Assessment and Plan: * CT abdomen/pelvis showing approximately 6 x 7 mm obstructing proximal right ureteral calculus with moderate right hydronephrosis * Urology following * s/p cystoscopy with bilateral retrograde pyelogram and bilateral ureteral stent placement (on 08/15) * will need definitive stone management after discharge * continue supportive therapy (5) Anemia: Code(s): D64.9 - Anemia, unspecified Status: Acute Assessment and Plan: * due to ADAM and acute illness * anemia studies noted - iron deficient as well * on iron * follow H/H (6) Type 2 diabetes mellitus with hyperglycemia: Code(s): E11.65 - Type 2 diabetes mellitus with hyperglycemia Status: Chronic Assessment and Plan: * follow accu-cheks * glycemic control per hospitalists Will continue to follow. Subjective Date/time seen: 08/20/23 11:17 Interval history: Follow-up for acute kidney injury/acute renal failure. Renal function slightly better today and still making reasonable urine output; reports still having issues with nausea and dry heaves but not as severe as on admission; no apparent distress noted; no issues/events overnight or earlier this morning. Exam Narrative: General: large WD/WN female in NAD Heart: normal S1 and S2; no rub Lungs: few bibasilar crackles Abdomen: soft, nontender, nondistended, positive bowel sounds Extremities: no cyanosis or clubbing; trace - 1+ edema Skin: warm and dry Objective Data Vital Signs Vital Signs: Vital Signs Temp P
--- NOTE | 2023-08-20 11:17 | PM.PNNEP ---
Progress Note: A&P Assessment and Plan (1) ADAM (acute kidney injury): Code(s): N17.9 - Acute kidney failure, unspecified Status: Acute Assessment and Plan: normal baseline creatinine (creatinine of 0.74mg/dl in March 2023) however, given her history of microalbuminuria, she have some degree of renal insufficiency creatinine on admission 1.6mg/dl evaluation to date noted: CT scan with obstructive uropathy secondary to kidney stone UA significant for infection urine electrolytes non-prerenal proteinuria rare urine eosinophils CPK normal suspect multifactorial etiology: ATN from infection/sepsis obstruction from nephrolithiasis prerenal factors 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 follow 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 labs and UOP (2) Sepsis: Qualifiers: Sepsis acute organ dysfunction status: with acute organ dysfunction Severe sepsis acute organ dysfunction type: acute renal failure Acute renal failure type: with acute tubular necrosis Severe sepsis shock status: without septic shock Code(s): A41.9 - Sepsis, unspecified organism Status: Acute Assessment and Plan: as noted by tachycardia, tachypena, leukocytosis, lactic acidosis, and ADAM on presentation s/p aggressive IVF resuscitation urine and blood culture with Klebsiella (urosepsis) on antibiotics follow repeat cultures monitor hemodynamics (3) Pyelonephritis: Code(s): N12 - Tubulo-interstitial nephritis, not specified as acute or chronic Status: Acute Assessment and Plan: CT abd/pelvis with prominent perinephric fluid and fat stranding UA c/w with UTI see #2 (4) Calculus, ureteral: Code(s): N20.1 - Calculus of ureter Status: Acute Assessment and Plan: CT abdomen/pelvis showing approximately 6 x 7 mm obstructing proximal right ureteral calculus with moderate right hydronephrosis Urology following s/p cystoscopy with bilateral retrograde pyelogram and bilateral ureteral stent placement (on 08/15) will need definitive stone management after discharge continue supportive therapy (5) Anemia: Code(s): D64.9 - Anemia, unspecified Status: Acute Assessment and Plan: due to ADAM and acute illness anemia studies noted - iron deficient as well on iron follow H/H (6) Type 2 diabetes mellitus with hyperglycemia: Code(s): E11.65 - Type 2 diabetes mellitus with hyperglycemia Status: Chronic Assessment and Plan: follow accu-cheks glycemic control per hospitalists Will continue to follow. Subjective Date/time seen: 08/20/23 11:17 Interval history: Follow-up for acute kidney injury/acute renal failure. Renal function slightly better today and still making reasonable urine output; reports still having issues with nausea and dry heaves but not as severe as on admission; no apparent distress noted; no issues/events overnight or earlier this morning. Exam Narrative: General: large WD/WN female in NAD Heart: normal S1 and S2; no rub Lungs: few bibasilar crackles Abdomen: soft, nontender, nondistended, positive bowel sounds Extremities: no cyanosis or clubbing; trace - 1+ edema Skin: warm and dry Objective Data Vital Signs Vital Signs: Vital Signs Temp Pulse Resp BP Pulse Ox O2 Del Method O2 Flow Rate 08/20/23 10:00 101 H 08/20/23 08:00 100 08/20/23 08:00 97.1 F L 105 H 20 161/81 H 95 08/20/23 08:06 92 20 08/20/23 08:01 94 Room Air 08/20/23 07:55 99 19 08/20/23 04:00 93 Room Air 08/20/23 06:00 102 H 08/20/23 04:00 100 08/20/23 04:55 98.8 F 99 19 130/67 93 08/20/23 02:00 100 08/20/23 02:07 100 20 08/20/23 01:59 97 20 08/20/23 02:00 94 Room Air 08/20/23 00:00 96 Nasal Cannula 2 08/19/23 20:00 96 Nasal Cannula 2 08/20/23 00:00 100 04
[2023-08-20 11:59] LABS: Glucose Point of Care 200 mg/dl (65-105)
--- NOTE | 2023-08-20 13:28 | PCPTNOTE ---
Patient refused treatment this session. Patient reported she just got a purewick placed and did not want to get up and move.
[2023-08-20 16:18] LABS: Glucose Point of Care 180 mg/dl (65-105)
--- NOTE | 2023-08-20 17:48 | PM.IMPN ---
Progress Note: A&P Assessment and Plan (1) Sepsis: Qualifiers: Sepsis acute organ dysfunction status: with acute organ dysfunction Severe sepsis acute organ dysfunction type: acute renal failure Acute renal failure type: with acute tubular necrosis Severe sepsis shock status: without septic shock Code(s): A41.9 - Sepsis, unspecified organism Status: Acute Assessment and Plan: Patient presents with abdominal pain and met SIRS criteria with elevated HR, RR, WBC, lactic (2.7). PCT 4.7. BP stable She received appropriate fluid resuscitation. UA was consistent with UTI. UCx growing klebsiella that is andrea sensitive BCx 08/15 Klebsiella pneumoniae with same sensitivity pattern Repeat BCx 08/17 NGTD MRSA screen negative CXR showing suggestion of mild patchy rather diffuse bilateral pulmonary infiltrates?(CT Abd showing clear lung bases) CT abd/pelvis with approximately 6 x 7 mm obstructing proximal right ureteral calculus with moderate right hydronephrosis, prominent perinephric fluid and fat stranding. Bilateral nephrolithiasis. Bilateral renal indeterminate space-occupying lesions. Splenomegaly. Right adrenal myelolipoma. 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 Status post hysterectomy Source of sepsis: UTI/Pyelonephritis/septic renal stone She was started on ceftriaxone on 08/15 but changed to vancomycin and cefepime for urine and respiratory coverage. WBC normal Vancomycin stopped. Cefepime de-escalated to Rocephin. Wean to oral tomorrow Monitor closely (2) Hypoxia: Code(s): R09.02 - Hypoxemia Status: Acute Assessment and Plan: Patieint hypoxic requiring a couple of liters of O2. CXR as above. ABG 7.38/36/86 on 2L She is fluid positive and appears edematous. Consider fluid overload with poor UOP IV fluids stopped yesterday Consider Lasix but ADAM Repeat CXR showing mild atelectasis. Weaned to room air. Change neb treatments to prn. (3) Calculus, ureteral: Code(s): N20.1 - Calculus of ureter Status: Acute Assessment and Plan: CT abdomen/pelvis showing approximately 6 x 7 mm obstructing proximal right ureteral calculus with moderate right hydronephrosis, prominent perinephric fluid and fat stranding with bilateral nephrolithiasis. Bilateral renal indeterminate space-occupying lesions Urology consulted and appreciate their input. Patient underwent cystoscopy with bilateral retrograde pyelogram and bilateral ureteral stent placement on 08/16/23 Abx as above. Will need definitive stone management after discharge Follow (4) Pyelonephritis: Code(s): N12 - Tubulo-interstitial nephritis, not specified as acute or chronic Status: Acute Assessment and Plan: CT abd/pelvis: Approximately 6 x 7 mm obstructing proximal right ureteral calculus with moderate right hydronephrosis, prominent perinephric fluid and fat stranding and bilateral renal indeterminate space-occupying lesions. UA consistent with UTI. Urine and blood cultures positive with Klebsiella. Renal US showing right pelviectasis and bilateral renal masses; MRI recommended Abx as above (5) ADAM (acute kidney injury): Code(s): N17.9 - Acute kidney failure, unspecified Status: Acute Assessment and Plan: Patient has normal baseline renal function; previously 0.74 on 03/12/2023 Cr 1.6 on admission. Prot/Cr 4gm. Jake 16 and FENa 1.2% to suggest intrinsic renal disease Rare eosinophils with slight elevated of serum eosinophil cough (400 cells). TCK normal. Suspect injury secondary to post-obstruction process, ATN from sepsis, renal abscess and dehydration; Consider Acute Interstitial nephritis - abx related? UOP 4700mL yesterday and 3350mL so far today. Possibly post-ATN diuresis but Cr unchanged Nephrology consulted. Obtain MRI when renal function starts to improve Monitor UOP, renal function and electrolytes. (6) Type 2 diabetes mellitus
[2023-08-20] MEDS: busPIRone HCL 10 MG TABLET 20 MG PO (20:40)
[2023-08-20] MEDS: QUEtiapine FUMARATE 100 MG TABLET PO (20:41)
[2023-08-20] MEDS: INSULIN GLARGINE (*BKC) 100 UNITS/ML 15 UNITS SUB-Q (20:41)
[2023-08-20 20:46] LABS: Glucose Point of Care 171 mg/dl (65-105)
--- NOTE | 2023-08-20 23:03 | PC.NURSE ---
This patient, Estefany Li, was transferred to [facility] on 08/20/23 at 2300. Personal belongings sent with patient. Report given to NATASHA Rai. Appropriate documentation sent with patient.
[2023-08-21] MEDS: traZODone HCL 25 MG TABLET PO (00:11)
[2023-08-21] MEDS: ACETAMINOPHEN 325 MG TABLET 650 MG PO (05:47)
[2023-08-21 06:18] VITALS: BP 143/78; PULSE 94; RESP 22; TEMP 36.5; O2SAT 96
[2023-08-21 06:36] LABS: Hematocrit 28.1 % (37.0-47.0); Hemoglobin 8.2 g/dL (12.0-15.0); Mean Corpuscular HGB Conc 29.2 g/dl (32-36); Mean Corpuscular Volume 78.7 fl (80-100); Mean Platelet Volume 9.9 fl (7.4-10.4); Platelet Count Result 394 k/mm3 (150-375); Red Blood Count 3.57 M/mm3 (4.2-5.4); Red Cell Distribution Width 16.3 % (11.5-14.5); White Blood Count 7.5 K/mm3 (4.5-10.0)
[2023-08-21 07:14] LABS: Albumin Level 3.1 g/dL (3.5-5.1); Anion Gap 8 mmol/L (4-12); Blood Urea Nitrogen 33 mg/dL (7-17); CRP > 9.0 mg/dL (<1.0); Calcium 8.9 mg/dL (8.4-10.2); Carbon Dioxide 23 mmol/L (22-30); Chloride 105 mmol/L (98-107); Estimated CRCL calculation 41 ml/min; Estimated Glomerular Filt Rate 24; Glucose 193 mg/dL (65-110); Phosphorus 4.3 mg/dL (2.5-4.5); Potassium 4.3 mmol/L (3.4-5.0); Sodium 136 mmol/L (137-145)
[2023-08-21 08:00] VITALS: BP 140/62; PULSE 99; RESP 18; TEMP 36.6; O2SAT 95
[2023-08-21 08:10] LABS: Glucose Point of Care 208 mg/dl (65-105)
[2023-08-21] MEDS: buPROPion HCL XL (24 HR) 150 MG TABCR 300 MG PO (08:15)
[2023-08-21] MEDS: FENOFIBRATE 160 MG TABLET PO (08:15)
[2023-08-21] MEDS: busPIRone HCL 10 MG TABLET PO (08:15)
[2023-08-21] MEDS: SERTRALINE HCL 50 MG TABLET 100 MG PO (08:15)
[2023-08-21] MEDS: cefTRIAXone 2 GM/NS 100 ML 2 GM/100 ML BAG IVPB (08:15)
[2023-08-21] MEDS: INSULIN ASPART (*BKC) 100 UNITS/ML SUB-Q ×5 (08:16→17:03)
[2023-08-21] MEDS: PANTOPRAZOLE 40 MG TABLET PO (08:16)
[2023-08-21] MEDS: FERROUS SULFATE 325 MG TABLET DR PO (08:16)
[2023-08-21 11:58] LABS: Glucose Point of Care 163 mg/dl (65-105)
--- NOTE | 2023-08-21 13:26 | P.PNNP_ITS ---
Progress Note: A&P Assessment and Plan (1) ADAM (acute kidney injury): Code(s): N17.9 - Acute kidney failure, unspecified Status: Acute Assessment and Plan: * slow improvement noted * normal baseline creatinine (creatinine of 0.74mg/dl in March 2023) * however, given her history of microalbuminuria, she have some degree of renal insufficiency * creatinine on admission 1.6mg/dl -- appears to have peaked/plateaued at 2.7mg/dl * evaluation to date noted: * CT scan with obstructive uropathy secondary to kidney stone * UA significant for infection * urine electrolytes non-prerenal * proteinuria * rare urine eosinophils * CPK normal * suspect multifactorial etiology: * ATN from infection/sepsis * obstruction from nephrolithiasis * prerenal factors * previous antibiotics [employer] (?) * making good urine output * follow repeat labs and UOP (2) Sepsis: Qualifiers: Sepsis acute organ dysfunction status: with acute organ dysfunction Severe sepsis acute organ dysfunction type: acute renal failure Acute renal failure type: with acute tubular necrosis Severe sepsis shock status: without septic shock Code(s): A41.9 - Sepsis, unspecified organism Status: Acute Assessment and Plan: * as noted by tachycardia, tachypena, leukocytosis, lactic acidosis, and ADAM on presentation * s/p aggressive IVF resuscitation * urine and blood culture with Klebsiella (urosepsis) * on antibiotics * follow repeat cultures * monitor hemodynamics (3) Pyelonephritis: Code(s): N12 - Tubulo-interstitial nephritis, not specified as acute or chronic Status: Acute Assessment and Plan: * CT abd/pelvis with prominent perinephric fluid and fat stranding * UA c/w with UTI * see #2 (4) Calculus, ureteral: Code(s): N20.1 - Calculus of ureter Status: Acute Assessment and Plan: * CT abdomen/pelvis showing approximately 6 x 7 mm obstructing proximal right ureteral calculus with moderate right hydronephrosis * Urology following * s/p cystoscopy with bilateral retrograde pyelogram and bilateral ureteral stent placement (on 08/15) * will need definitive stone management after discharge * continue supportive therapy (5) Anemia: Code(s): D64.9 - Anemia, unspecified Status: Acute Assessment and Plan: * due to ADAM and acute illness * anemia studies noted - iron deficient as well * on iron * follow H/H (6) Type 2 diabetes mellitus with hyperglycemia: Code(s): E11.65 - Type 2 diabetes mellitus with hyperglycemia Status: Chronic Assessment and Plan: * follow accu-cheks * glycemic control per hospitalists Will continue to follow. Subjective Date/time seen: 08/21/23 13:26 Interval history: Follow-up for acute kidney injury/acute renal failure. Renal function/creatinine continue to improve with current therapy/interventions; continues to make good urine output without any significant/critical electrolyte abnormalities; overall, states she is feeling better in general. Exam Narrative: General: large WD/WN female in NAD Heart: normal S1 and S2; no rub Lungs: decreased at bases Abdomen: soft, nontender, nondistended, positive bowel sounds Extremities: no cyanosis or clubbing; trace edema Skin: warm and intact Objective Data Vital Signs Vital Signs:
--- NOTE | 2023-08-21 13:26 | PM.PNNEP ---
Progress Note: A&P Assessment and Plan (1) ADAM (acute kidney injury): Code(s): N17.9 - Acute kidney failure, unspecified Status: Acute Assessment and Plan: slow improvement noted normal baseline creatinine (creatinine of 0.74mg/dl in March 2023) however, given her history of microalbuminuria, she have some degree of renal insufficiency creatinine on admission 1.6mg/dl -- appears to have peaked/plateaued at 2.7mg/dl evaluation to date noted: CT scan with obstructive uropathy secondary to kidney stone UA significant for infection urine electrolytes non-prerenal proteinuria rare urine eosinophils CPK normal suspect multifactorial etiology: ATN from infection/sepsis obstruction from nephrolithiasis prerenal factors previous antibiotics [employer] (?) making good urine output follow repeat labs and UOP (2) Sepsis: Qualifiers: Sepsis acute organ dysfunction status: with acute organ dysfunction Severe sepsis acute organ dysfunction type: acute renal failure Acute renal failure type: with acute tubular necrosis Severe sepsis shock status: without septic shock Code(s): A41.9 - Sepsis, unspecified organism Status: Acute Assessment and Plan: as noted by tachycardia, tachypena, leukocytosis, lactic acidosis, and ADAM on presentation s/p aggressive IVF resuscitation urine and blood culture with Klebsiella (urosepsis) on antibiotics follow repeat cultures monitor hemodynamics (3) Pyelonephritis: Code(s): N12 - Tubulo-interstitial nephritis, not specified as acute or chronic Status: Acute Assessment and Plan: CT abd/pelvis with prominent perinephric fluid and fat stranding UA c/w with UTI see #2 (4) Calculus, ureteral: Code(s): N20.1 - Calculus of ureter Status: Acute Assessment and Plan: CT abdomen/pelvis showing approximately 6 x 7 mm obstructing proximal right ureteral calculus with moderate right hydronephrosis Urology following s/p cystoscopy with bilateral retrograde pyelogram and bilateral ureteral stent placement (on 08/15) will need definitive stone management after discharge continue supportive therapy (5) Anemia: Code(s): D64.9 - Anemia, unspecified Status: Acute Assessment and Plan: due to ADAM and acute illness anemia studies noted - iron deficient as well on iron follow H/H (6) Type 2 diabetes mellitus with hyperglycemia: Code(s): E11.65 - Type 2 diabetes mellitus with hyperglycemia Status: Chronic Assessment and Plan: follow accu-cheks glycemic control per hospitalists Will continue to follow. Subjective Date/time seen: 08/21/23 13:26 Interval history: Follow-up for acute kidney injury/acute renal failure. Renal function/creatinine continue to improve with current therapy/interventions; continues to make good urine output without any significant/critical electrolyte abnormalities; overall, states she is feeling better in general. Exam Narrative: General: large WD/WN female in NAD Heart: normal S1 and S2; no rub Lungs: decreased at bases Abdomen: soft, nontender, nondistended, positive bowel sounds Extremities: no cyanosis or clubbing; trace edema Skin: warm and intact Objective Data Vital Signs Vital Signs: Vital Signs Temp Pulse Resp BP Pulse Ox O2 Del Method 08/21/23 08:00 97.8 F 99 18 140/62 95 08/21/23 06:18 97.7 F 94 22 H 143/78 H 96 08/20/23 23:19 95 Room Air 08/20/23 23:05 98.2 F 96 22 H 140/74 95 08/20/23 20:00 Room Air 08/20/23 19:42 99.1 F 99 22 H 140/73 94 Intake/Output Intake/Output: Intake & Output 08/18/23 08/19/23 08/20/23 08/21/23 23:59 23:59 23:59 23:59 Intake Total 1860 2900 1540 1150 Output Total 2300 4700 5250 1100 Balance -120 -4866 -8907 50 Meds/Results Medications: Active Medications Generic Name Dose Route Star
--- NOTE | 2023-08-21 14:29 | PM.IMPN ---
Progress Note: A&P Assessment and Plan (1) Sepsis: Qualifiers: Sepsis acute organ dysfunction status: with acute organ dysfunction Severe sepsis acute organ dysfunction type: acute renal failure Acute renal failure type: with acute tubular necrosis Severe sepsis shock status: without septic shock Code(s): A41.9 - Sepsis, unspecified organism Status: Acute Assessment and Plan: Patient presents with abdominal pain and met SIRS criteria with elevated HR, RR, WBC, lactic (2.7). PCT 4.7. BP stable She received appropriate fluid resuscitation. UA was consistent with UTI. UCx growing klebsiella that is andrea sensitive BCx 08/15 Klebsiella pneumoniae with same sensitivity pattern Repeat BCx 08/17 NGTD MRSA screen negative CXR showing suggestion of mild patchy rather diffuse bilateral pulmonary infiltrates?(CT Abd showing clear lung bases) CT abd/pelvis with approximately 6 x 7 mm obstructing proximal right ureteral calculus with moderate right hydronephrosis, prominent perinephric fluid and fat stranding. Bilateral nephrolithiasis. Bilateral renal indeterminate space-occupying lesions. Splenomegaly. Right adrenal myelolipoma. 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 Status post hysterectomy Source of sepsis: UTI/Pyelonephritis/septic renal stone She was started on ceftriaxone on 08/15 but changed to vancomycin and cefepime for urine and respiratory coverage. WBC normal Vancomycin stopped. Cefepime de-escalated to Rocephin. Pt admitted for urosepsis and infected ureteral stone Pt sp Cystoscopy, bilateral retrograde pyelogram, bilateral ureteral stent placement (6 Kazakh variable length) Inital BC and UC positive for Klebsiella Rpt BC is negative await Rpt UC Continue iv rocephin for now Creat today is 2.1 baseline is around 1.6 IV fluids started Nurse reports pt is not walking much plan to encourage pt to walk with PT/ OT Hopeful DC in 1-2 days time (2) Hypoxia: Code(s): R09.02 - Hypoxemia Status: Acute Assessment and Plan: Patieint hypoxic requiring a couple of liters of O2. CXR as above. ABG 7.38/36/86 on 2L She is fluid positive and appears edematous. Consider fluid overload with poor UOP IV fluids stopped yesterday Consider Lasix but ADAM Repeat CXR showing mild atelectasis. Weaned to room air. Change neb treatments to prn. (3) Calculus, ureteral: Code(s): N20.1 - Calculus of ureter Status: Acute Assessment and Plan: CT abdomen/pelvis showing approximately 6 x 7 mm obstructing proximal right ureteral calculus with moderate right hydronephrosis, prominent perinephric fluid and fat stranding with bilateral nephrolithiasis. Bilateral renal indeterminate space-occupying lesions Urology consulted and appreciate their input. Patient underwent cystoscopy with bilateral retrograde pyelogram and bilateral ureteral stent placement on 08/16/23 Abx as above. Will need definitive stone management after discharge Follow (4) Pyelonephritis: Code(s): N12 - Tubulo-interstitial nephritis, not specified as acute or chronic Status: Acute Assessment and Plan: CT abd/pelvis: Approximately 6 x 7 mm obstructing proximal right ureteral calculus with moderate right hydronephrosis, prominent perinephric fluid and fat stranding and bilateral renal indeterminate space-occupying lesions. UA consistent with UTI. Urine and blood cultures positive with Klebsiella. Renal US showing right pelviectasis and bilateral renal masses; MRI recommended Abx as above (5) ADAM (acute kidney injury): Code(s): N17.9 - Acute kidney failure, unspecified Status: Acute Assessment and Plan: Patient has normal baseline renal function; previously 0.74 on 03/12/2023 Cr 1.6 on admission. Prot/Cr 4gm. Jake 16 and FENa 1.2% to suggest intrinsic renal disease Rare eosinophils with slight elevated of serum eosinophil cough (400 cells). TC
[2023-08-21] MEDS: SODIUM CHLORIDE 0.9% IV 1,000 ML 75 ML IV CONT (14:33)
[2023-08-21 16:55] LABS: Glucose Point of Care 208 mg/dl (65-105)
[2023-08-21] MEDS: amLODIPine BESYLATE 5 MG TABLET PO (17:03)
[2023-08-21] MEDS: NYSTATIN 100,000 UNITS/ML SUSP 5 ML ORAL.SUSP PO ×2 (17:42→22:16)
[2023-08-21 20:00] VITALS: O2SAT 96
[2023-08-21] MEDS: INSULIN GLARGINE (*BKC) 100 UNITS/ML 15 UNITS SUB-Q (22:07)
[2023-08-21] MEDS: busPIRone HCL 10 MG TABLET 20 MG PO (22:16)
[2023-08-21] MEDS: QUEtiapine FUMARATE 100 MG TABLET PO (22:17)
[2023-08-21] MEDS: TOLNAFTATE 1% POWDER 45 GM BTL 1 APPLIC TOPICAL (22:26)
[2023-08-21 22:28] LABS: Glucose Point of Care 180 mg/dl (65-105)
[2023-08-21 22:53] VITALS: BP 143/90; PULSE 98; RESP 22; TEMP 37.1; O2SAT 96
--- NOTE | 2023-08-22 03:54 | PC.NURSE ---
2129 Patient called medical charge entry specialist to room, upset that she is being asked to get OOB to use bathroom instead of using purewick. Patient was yelling and crying about wanting to continue to use purewick and wanting to be transferred back to previous room because she was able to use purewick there without being asked to get OOB to use toilet or BSC. This nurse came in at this time and spoke with patient about reasoning for discontinuing the use of purewick and the benefits v risks of using one. Patient became agreeable to discontinue the use of the purewick and will ambulate to bathroom with underwear and david pad in place for possible incontinence while ambulating.
[2023-08-22 06:19] LABS: Hematocrit 30.1 % (37.0-47.0); Hemoglobin 8.7 g/dL (12.0-15.0); Mean Corpuscular HGB Conc 28.9 g/dl (32-36); Mean Corpuscular Hemoglobin 23.2 pg (26-34); Mean Corpuscular Volume 80.3 fl (80-100); Mean Platelet Volume 9.3 fl (7.4-10.4); Platelet Count Result 444 k/mm3 (150-375); Red Blood Count 3.75 M/mm3 (4.2-5.4); Red Cell Distribution Width 16.8 % (11.5-14.5); White Blood Count 9.5 K/mm3 (4.5-10.0)
[2023-08-22 06:36] LABS: Anion Gap 7 mmol/L (4-12); Blood Urea Nitrogen 30 mg/dL (7-17); Calcium 9.2 mg/dL (8.4-10.2); Carbon Dioxide 24 mmol/L (22-30); Chloride 106 mmol/L (98-107); Estimated CRCL calculation 45 ml/min; Estimated Glomerular Filt Rate 27; Glucose 189 mg/dL (65-110); Potassium 4.2 mmol/L (3.4-5.0); Sodium 137 mmol/L (137-145)
[2023-08-22 07:38] LABS: Glucose Point of Care 175 mg/dl (65-105)
[2023-08-22 08:00] VITALS: PULSE 102; RESP 18; O2SAT 94
[2023-08-22] MEDS: cefTRIAXone 2 GM/NS 100 ML 2 GM/100 ML BAG IVPB (09:48)
[2023-08-22] MEDS: SERTRALINE HCL 50 MG TABLET 100 MG PO (09:48)
[2023-08-22] MEDS: buPROPion HCL XL (24 HR) 150 MG TABCR 300 MG PO (09:48)
[2023-08-22] MEDS: PANTOPRAZOLE 40 MG TABLET PO (09:48)
[2023-08-22] MEDS: amLODIPine BESYLATE 5 MG TABLET PO (09:49)
[2023-08-22] MEDS: TOLNAFTATE 1% POWDER 45 GM BTL 1 APPLIC TOPICAL ×2 (09:49→20:50)
[2023-08-22] MEDS: FENOFIBRATE 160 MG TABLET PO (09:49)
[2023-08-22] MEDS: FERROUS SULFATE 325 MG TABLET DR PO (09:49)
[2023-08-22] MEDS: NYSTATIN 100,000 UNITS/ML SUSP 5 ML ORAL.SUSP PO ×4 (09:49→20:49)
[2023-08-22] MEDS: INSULIN ASPART (*BKC) 100 UNITS/ML SUB-Q ×4 (09:49→20:48)
[2023-08-22] MEDS: busPIRone HCL 10 MG TABLET PO (09:49)
[2023-08-22 11:19] LABS: Glucose Point of Care 176 mg/dl (65-105)
--- NOTE | 2023-08-22 12:23 | PM.IMPN ---
Progress Note: A&P Assessment and Plan (1) Sepsis: Qualifiers: Sepsis acute organ dysfunction status: with acute organ dysfunction Severe sepsis acute organ dysfunction type: acute renal failure Acute renal failure type: with acute tubular necrosis Severe sepsis shock status: without septic shock Code(s): A41.9 - Sepsis, unspecified organism Status: Acute Assessment and Plan: Patient presents with abdominal pain and met SIRS criteria with elevated HR, RR, WBC, lactic (2.7). PCT 4.7. BP stable She received appropriate fluid resuscitation. UA was consistent with UTI. UCx growing klebsiella that is andrea sensitive BCx 08/15 Klebsiella pneumoniae with same sensitivity pattern Repeat BCx 08/17 NGTD MRSA screen negative CXR showing suggestion of mild patchy rather diffuse bilateral pulmonary infiltrates?(CT Abd showing clear lung bases) CT abd/pelvis with approximately 6 x 7 mm obstructing proximal right ureteral calculus with moderate right hydronephrosis, prominent perinephric fluid and fat stranding. Bilateral nephrolithiasis. Bilateral renal indeterminate space-occupying lesions. Splenomegaly. Right adrenal myelolipoma. 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 Status post hysterectomy Source of sepsis: UTI/Pyelonephritis/septic renal stone She was started on ceftriaxone on 08/15 but changed to vancomycin and cefepime for urine and respiratory coverage. WBC normal Vancomycin stopped. Cefepime de-escalated to Rocephin. Pt admitted for urosepsis and infected ureteral stone Pt sp Cystoscopy, bilateral retrograde pyelogram, bilateral ureteral stent placement (6 Greek variable length) Inital BC and UC positive for Klebsiella Rpt BC is negative await Rpt UC Continue iv rocephin for now Creat today is 2.1 baseline is around 1.6 IV fluids started Nurse reports pt is not walking much plan to encourage pt to walk with PT/ OT can transition to oral augmentin today continue fluids continue PT/ OT MRI ordered for MIA AM (2) Hypoxia: Code(s): R09.02 - Hypoxemia Status: Acute Assessment and Plan: Patieint hypoxic requiring a couple of liters of O2. CXR as above. ABG 7.36/ on 2L She is fluid positive and appears edematous. Consider fluid overload with poor UOP IV fluids stopped yesterday Consider Lasix but ADAM Repeat CXR showing mild atelectasis. Weaned to room air. Change neb treatments to prn. (3) Calculus, ureteral: Code(s): N20.1 - Calculus of ureter Status: Acute Assessment and Plan: CT abdomen/pelvis showing approximately 6 x 7 mm obstructing proximal right ureteral calculus with moderate right hydronephrosis, prominent perinephric fluid and fat stranding with bilateral nephrolithiasis. Bilateral renal indeterminate space-occupying lesions Urology consulted and appreciate their input. Patient underwent cystoscopy with bilateral retrograde pyelogram and bilateral ureteral stent placement on 08/16/23 Abx as above. Will need definitive stone management after discharge Follow (4) Pyelonephritis: Code(s): N12 - Tubulo-interstitial nephritis, not specified as acute or chronic Status: Acute Assessment and Plan: CT abd/pelvis: Approximately 6 x 7 mm obstructing proximal right ureteral calculus with moderate right hydronephrosis, prominent perinephric fluid and fat stranding and bilateral renal indeterminate space-occupying lesions. UA consistent with UTI. Urine and blood cultures positive with Klebsiella. Renal US showing right pelviectasis and bilateral renal masses; MRI recommended Abx as above (5) ADAM (acute kidney injury): Code(s): N17.9 - Acute kidney failure, unspecified Status: Acute Assessment and Plan: Patient has normal baseline renal function; previously 0.74 on 03/12/2023 Cr 1.6 on admission. Prot/Cr 4gm. Jake 16 and FENa 1.2% to suggest intrinsic renal disease Rare
--- NOTE | 2023-08-22 13:36 | PM.PNNEP ---
Progress Note: A&P Assessment and Plan (1) ADAM (acute kidney injury): Code(s): N17.9 - Acute kidney failure, unspecified Status: Acute Assessment and Plan: slow improvement noted normal baseline creatinine (creatinine of 0.74mg/dl in March 2023) however, given her history of microalbuminuria, she have some degree of renal insufficiency creatinine on admission 1.6mg/dl -- appears to have peaked/plateaued at 2.7mg/dl evaluation to date noted: CT scan with obstructive uropathy secondary to kidney stone UA significant for infection urine electrolytes non-prerenal proteinuria rare urine eosinophils CPK normal suspect multifactorial etiology: ATN from infection/sepsis obstruction from nephrolithiasis prerenal factors previous antibiotics [employer] (?) making good urine output follow repeat labs and UOP (2) Sepsis: Qualifiers: Sepsis acute organ dysfunction status: with acute organ dysfunction Severe sepsis acute organ dysfunction type: acute renal failure Acute renal failure type: with acute tubular necrosis Severe sepsis shock status: without septic shock Code(s): A41.9 - Sepsis, unspecified organism Status: Acute Assessment and Plan: as noted by tachycardia, tachypena, leukocytosis, lactic acidosis, and ADAM on presentation s/p aggressive IVF resuscitation urine and blood culture with Klebsiella (urosepsis) on antibiotics follow repeat cultures monitor hemodynamics (3) Pyelonephritis: Code(s): N12 - Tubulo-interstitial nephritis, not specified as acute or chronic Status: Acute Assessment and Plan: CT abd/pelvis with prominent perinephric fluid and fat stranding UA c/w with UTI see #2 (4) Calculus, ureteral: Code(s): N20.1 - Calculus of ureter Status: Acute Assessment and Plan: CT abdomen/pelvis showing approximately 6 x 7 mm obstructing proximal right ureteral calculus with moderate right hydronephrosis Urology following s/p cystoscopy with bilateral retrograde pyelogram and bilateral ureteral stent placement (on 08/15) will need definitive stone management after discharge continue supportive therapy (5) Anemia: Code(s): D64.9 - Anemia, unspecified Status: Acute Assessment and Plan: due to ADAM and acute illness anemia studies noted - iron deficient as well on iron follow H/H (6) Type 2 diabetes mellitus with hyperglycemia: Code(s): E11.65 - Type 2 diabetes mellitus with hyperglycemia Status: Chronic Assessment and Plan: follow accu-cheks glycemic control per hospitalists Will continue to follow. Subjective Date/time seen: 08/22/23 13:36 Interval history: Follow-up for acute kidney injury/acute renal failure. Continues to make slow and steady progress in general; improvement in renal function/creatinine noted by trend of labs; eating and drinking okay; denies any shortness of breath or chest pain; no apparent distress noted; no issues/events overnight or earlier this morning. Exam Narrative: General: large WD/WN female in NAD Heart: normal S1 and S2; no rub Lungs: decreased at bases Abdomen: soft, nontender, nondistended, positive bowel sounds Extremities: no cyanosis or clubbing; trace edema Skin: no rash Objective Data Vital Signs Vital Signs: Vital Signs Temp Pulse Resp BP Pulse Ox O2 Del Method FiO2 08/22/23 08:00 102 H 18 94 Room Air 28 08/22/23 14:15 97.1 F L 102 H 18 138/85 94 08/21/23 20:00 96 Room Air 08/21/23 22:53 98.8 F 98 22 H 143/90 H 96 Intake/Output Intake/Output: Intake & Output 08/19/23 08/20/23 08/21/23 08/22/23 23:59 23:59 23:59 23:59 Intake Total 2900 1540 1860 1745 Output Total 4700 5250 2300 700 Balance -1800 -3710 -440 1045 Meds/Results Medications: Active Medications Generic Name Dose Route Start Last Admin Trade Name F
--- NOTE | 2023-08-22 13:36 | P.PNNP_ITS ---
Progress Note: A&P Assessment and Plan (1) ADAM (acute kidney injury): Code(s): N17.9 - Acute kidney failure, unspecified Status: Acute Assessment and Plan: * slow improvement noted * normal baseline creatinine (creatinine of 0.74mg/dl in March 2023) * however, given her history of microalbuminuria, she have some degree of renal insufficiency * creatinine on admission 1.6mg/dl -- appears to have peaked/plateaued at 2.7mg/dl * evaluation to date noted: * CT scan with obstructive uropathy secondary to kidney stone * UA significant for infection * urine electrolytes non-prerenal * proteinuria * rare urine eosinophils * CPK normal * suspect multifactorial etiology: * ATN from infection/sepsis * obstruction from nephrolithiasis * prerenal factors * 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 (?) * making good urine output * follow repeat labs and UOP (2) Sepsis: Qualifiers: Sepsis acute organ dysfunction status: with acute organ dysfunction Severe sepsis acute organ dysfunction type: acute renal failure Acute renal failure type: with acute tubular necrosis Severe sepsis shock status: without septic shock Code(s): A41.9 - Sepsis, unspecified organism Status: Acute Assessment and Plan: * as noted by tachycardia, tachypena, leukocytosis, lactic acidosis, and ADAM on presentation * s/p aggressive IVF resuscitation * urine and blood culture with Klebsiella (urosepsis) * on antibiotics * follow repeat cultures * monitor hemodynamics (3) Pyelonephritis: Code(s): N12 - Tubulo-interstitial nephritis, not specified as acute or chronic Status: Acute Assessment and Plan: * CT abd/pelvis with prominent perinephric fluid and fat stranding * UA c/w with UTI * see #2 (4) Calculus, ureteral: Code(s): N20.1 - Calculus of ureter Status: Acute Assessment and Plan: * CT abdomen/pelvis showing approximately 6 x 7 mm obstructing proximal right ureteral calculus with moderate right hydronephrosis * Urology following * s/p cystoscopy with bilateral retrograde pyelogram and bilateral ureteral stent placement (on 08/15) * will need definitive stone management after discharge * continue supportive therapy (5) Anemia: Code(s): D64.9 - Anemia, unspecified Status: Acute Assessment and Plan: * due to ADAM and acute illness * anemia studies noted - iron deficient as well * on iron * follow H/H (6) Type 2 diabetes mellitus with hyperglycemia: Code(s): E11.65 - Type 2 diabetes mellitus with hyperglycemia Status: Chronic Assessment and Plan: * follow accu-cheks * glycemic control per hospitalists Will continue to follow. Subjective Date/time seen: 08/22/23 13:36 Interval history: Follow-up for acute kidney injury/acute renal failure. Continues to make slow and steady progress in general; improvement in renal function/creatinine noted by trend of labs; eating and drinking okay; denies any shortness of breath or chest pain; no apparent distress noted; no issues/events overnight or earlier this morning. Exam Narrative: General: large WD/WN female in NAD Heart: normal S1 and S2; no rub Lungs: decreased at bases Abdomen: soft, nontender, nondistended, positive bowel sounds Extremities: no cyanosis or clubbing; trace edema Skin: no rash Objective Data Vital Signs Vital Signs:
[2023-08-22 14:15] VITALS: BP 138/85; PULSE 102; RESP 18; TEMP 36.2; O2SAT 94
[2023-08-22 16:27] LABS: Glucose Point of Care 139 mg/dl (65-105)
[2023-08-22] MEDS: SODIUM CHLORIDE 0.9% IV 1,000 ML 50 ML IV CONT (17:21)
[2023-08-22 20:31] LABS: Glucose Point of Care 211 mg/dl (65-105)
[2023-08-22] MEDS: busPIRone HCL 10 MG TABLET 20 MG PO (20:48)
[2023-08-22] MEDS: QUEtiapine FUMARATE 100 MG TABLET PO (20:48)
[2023-08-22] MEDS: INSULIN GLARGINE (*BKC) 100 UNITS/ML 15 UNITS SUB-Q (20:49)
[2023-08-22 20:56] VITALS: BP 128/81; PULSE 87; RESP 20; TEMP 36.1; O2SAT 97
[2023-08-23 05:03] VITALS: BP 134/70; PULSE 85; RESP 20; TEMP 36.2; O2SAT 94
[2023-08-23] MEDS: AMOXICILLIN/CLAVULANATE K 875-125 MG TAB 1 TABLET PO (05:13)
[2023-08-23 06:41] LABS: Hematocrit 30.4 % (37.0-47.0); Hemoglobin 8.9 g/dL (12.0-15.0); Mean Corpuscular HGB Conc 29.3 g/dl (32-36); Mean Corpuscular Hemoglobin 23.4 pg (26-34); Mean Corpuscular Volume 79.8 fl (80-100); Mean Platelet Volume 9.6 fl (7.4-10.4); Platelet Count Result 473 k/mm3 (150-375); Red Blood Count 3.81 M/mm3 (4.2-5.4); White Blood Count 9.1 K/mm3 (4.5-10.0)
[2023-08-23 06:58] LABS: Anion Gap 8 mmol/L (4-12); Blood Urea Nitrogen 25 mg/dL (7-17); Calcium 8.9 mg/dL (8.4-10.2); Carbon Dioxide 22 mmol/L (22-30); Chloride 106 mmol/L (98-107); Estimated CRCL calculation 53 ml/min; Estimated Glomerular Filt Rate 33; Glucose 218 mg/dL (65-110); Potassium 4.3 mmol/L (3.4-5.0); Sodium 136 mmol/L (137-145)
[2023-08-23 07:55] LABS: Glucose Point of Care 207 mg/dl (65-105)
--- NOTE | 2023-08-23 08:15 | WPDUROPN2 ---
Progress Note: A&P Assessment and Plan (1) Calculus, ureteral: Code(s): N20.1 - Calculus of ureter Status: Acute (2) Pyelonephritis: Code(s): N12 - Tubulo-interstitial nephritis, not specified as acute or chronic Status: Acute Assessment and Plan: I will begin to make plans for intervention for her bilateral kidney stones. She is aware this will be staged, starting on the right side with ureteroscopy stone extraction with possible stent placement possible laser lithotripsy and retrograde Subjective Subjective Date/Time Seen: 08/23/23 08:15 Interval history: Patient feeling well and progress noted. Review of Systems Cardiovascular: Cardiovascular: Denies chest pain, Denies lightheadedness, Denies palpitations and Denies dyspnea Respiratory: Respiratory: Denies dyspnea Gastrointestinal: Gastrointestinal: Denies diarrhea, Denies nausea and Denies vomiting Genitourinary: Genitourinary: Denies hematuria and Denies dysuria Endocrine: Endocrine: Denies palpitations Objective Data Vital Signs Vital Signs: Vital Signs - 24 hr 08/22/23 14:15 08/22/23 20:56 08/23/23 05:03 Temperature 97.1 F L 97 F L 97.1 F L Pulse Rate 102 H 87 85 Respiratory Rate 18 20 20 Blood Pressure 138/85 128/81 134/70 Pulse Oximetry 94 97 94 Intake/Output Intake/Output: Intake & Output 08/20/23 08/21/23 08/22/23 08/23/23 23:59 23:59 23:59 23:59 Intake Total 1540 1860 2655 Output Total 5250 2300 700 Balance -3710 -440 1955 Meds/Results Medications: Active Medications Generic Name Dose Route Start Last Admin Trade Name Freq PRN Reason Stop Dose Admin Acetaminophen 650 mg 08/17/23 10:29 08/21/23 05:47 Acetaminophen 325 Mg Tablet PO 650 mg Q6H PRN Administration Mild Pain (1-3) or Fever Hydrocodone Bitart/Acetaminophen 1 tab 08/17/23 10:29 08/17/23 20:36 Hydrocodone/Acetaminophen (*Crx) 5-325 Mg Tablet PO 1 tab Q6H PRN Administration Pain Rated 4-6 Albuterol/Ipratropium 3 ml 08/20/23 17:53 Ipratropium 0.5 Mg/Albuterol Sulfate 2.5 Mg Ampul.Neb 3 Ml INHALATION Q6HRT PRN Shortness Of Breath Amlodipine Besylate 5 mg 08/21/23 15:00 08/22/23 09:49 Amlodipine Besylate 5 Mg Tablet PO 5 mg QAM JESSICA Administration Amoxicillin/Clavulanate Potassium 1 tablet 08/23/23 06:00 08/23/23 05:13 Amoxicillin/Clavulanate K 875-125 Mg Tab PO 08/25/23 22:01 1 tablet Q8HR JESSICA Administration Bupropion HCl 300 mg 08/17/23 09:00 08/22/23 09:48 Bupropion Hcl Xl (24 Hr) 150 Mg Tabcr PO 300 mg DAILY JESSICA Administration Buspirone HCl 10 mg 08/17/23 09:00 08/22/23 09:49 Buspirone Hcl 10 Mg Tablet PO 10 mg QAM JESSICA Administration Buspirone HCl 20 mg 08/16/23 21:00 08/22/23 20:48 Buspirone Hcl 10 Mg Tablet PO 20 mg QHS JESSICA Administration Calcium Carbonate 200 mg 08/19/23 12:16 Calcium Carbonate (Tums) 500 Mg (200 Mg Elemental) PO Q6H PRN Indigestion Dextrose 12.5 gm 08/16/23 20:42 Dextrose 50% 25 Gm/50 Ml Syringe IV PUSH PRN PRN Hypoglycemia Protocol Fenofibrate 160 mg 08/17/23 09:00 08/22/23 09:49 Fenofibrate 160 Mg Tablet PO 160 mg DAILY JESSICA Administration Ferrous Sulfate 325 mg 08/18/23 12:25 08/22/23 09:49 Ferrous Sulfate [address] PO 325 mg DAILY JESSICA Administration Glucagon 1 mg 08/16/23 20:42 Glucagon For Inj 1 Mg Vial IM PRN PRN Hypoglycemia Protocol Glucose 15 gm 08/16/23 20:42 Glucose Oral Gel 15 Gm Of Glucse In 37.5 Gm Tube PO PRN PRN Hypoglycemia Protocol Hyoscyamine 0.125 mg 08/19/23 06:26 08/20/23 08:45 Hyoscyamine Sulfate 0.125 Mg Tablet PO 0.125 mg Q4H PRN Administration Bladder Spasm Dextrose 1,000 mls @ 100 mls/hr 08/16/23 20:42 Dextrose 5% 1,000 Ml IVPB PRN PRN Hypoglycemia Protocol Sodium Chloride 1,000 mls @ 50 mls/hr 08/22/23 15:05 08/22/23 1
[2023-08-23 08:30] VITALS: BP 134/99; PULSE 88; RESP 16; TEMP 35.7; O2SAT 98
[2023-08-23] MEDS: INSULIN ASPART (*BKC) 100 UNITS/ML SUB-Q ×2 (08:53→08:57)
[2023-08-23] MEDS: SERTRALINE HCL 50 MG TABLET 100 MG PO (08:57)
[2023-08-23] MEDS: amLODIPine BESYLATE 5 MG TABLET PO (08:58)
[2023-08-23] MEDS: busPIRone HCL 10 MG TABLET PO (08:58)
[2023-08-23] MEDS: FERROUS SULFATE 325 MG TABLET DR PO (08:58)
[2023-08-23] MEDS: PANTOPRAZOLE 40 MG TABLET PO (08:58)
[2023-08-23] MEDS: FENOFIBRATE 160 MG TABLET PO (08:58)
[2023-08-23] MEDS: buPROPion HCL XL (24 HR) 150 MG TABCR 300 MG PO (08:58)
[2023-08-23] MEDS: TOLNAFTATE 1% POWDER 45 GM BTL 1 APPLIC TOPICAL (08:59)
[2023-08-23] MEDS: NYSTATIN 100,000 UNITS/ML SUSP 5 ML ORAL.SUSP PO (09:01)
[2023-08-23 09:55] VITALS: PULSE 110; RESP 22
[2023-08-23] MEDS: IPRATROPIUM 0.5 MG/ALBUTEROL SULFATE 2.5 MG AMPUL.NEB 3 ML INHALATION (09:59)
[2023-08-23 10:04] VITALS: PULSE 102; RESP 20
--- NOTE | 2023-08-23 10:33 | P.PNNP_ITS ---
Progress Note: A&P Assessment and Plan (1) ADAM (acute kidney injury): Code(s): N17.9 - Acute kidney failure, unspecified Status: Acute Assessment and Plan: * slow improvement noted * normal baseline creatinine (creatinine of 0.74mg/dl in March 2023) * however, given her history of microalbuminuria, she have some degree of renal insufficiency * creatinine on admission 1.6mg/dl -- appears to have peaked/plateaued at 2.7mg/dl * evaluation to date noted: * CT scan with obstructive uropathy secondary to kidney stone * UA significant for infection * urine electrolytes non-prerenal * proteinuria * rare urine eosinophils * CPK normal * suspect multifactorial etiology: * ATN from infection/sepsis * obstruction from nephrolithiasis * prerenal factors * 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 * follow repeat labs and UOP (2) Sepsis: Qualifiers: Sepsis acute organ dysfunction status: with acute organ dysfunction Severe sepsis acute organ dysfunction type: acute renal failure Acute renal failure type: with acute tubular necrosis Severe sepsis shock status: without septic shock Code(s): A41.9 - Sepsis, unspecified organism Status: Acute Assessment and Plan: * as noted by tachycardia, tachypena, leukocytosis, lactic acidosis, and ADAM on presentation * s/p aggressive IVF resuscitation * urine and blood culture with Klebsiella (urosepsis) * on antibiotics * follow repeat cultures (negative to date) * monitor hemodynamics (3) Pyelonephritis: Code(s): N12 - Tubulo-interstitial nephritis, not specified as acute or chronic Status: Acute Assessment and Plan: * CT abd/pelvis with prominent perinephric fluid and fat stranding * UA c/w with UTI * see #2 (4) Calculus, ureteral: Code(s): N20.1 - Calculus of ureter Status: Acute Assessment and Plan: * CT abdomen/pelvis showing approximately 6 x 7 mm obstructing proximal right ureteral calculus with moderate right hydronephrosis * Urology following * s/p cystoscopy with bilateral retrograde pyelogram and bilateral ureteral stent placement (on 08/15) * will need definitive stone management after discharge * continue supportive therapy (5) Anemia: Code(s): D64.9 - Anemia, unspecified Status: Acute Assessment and Plan: * due to ADAM and acute illness * anemia studies noted - iron deficient as well * on iron * follow H/H (6) Type 2 diabetes mellitus with hyperglycemia: Code(s): E11.65 - Type 2 diabetes mellitus with hyperglycemia Status: Chronic Assessment and Plan: * follow accu-cheks * glycemic control per hospitalists Will continue to follow. Subjective Date/time seen: 08/23/23 10:33 Interval history: Follow-up for acute kidney injury/acute renal failure. Seems to be doing quite well; no pain or discomfort noted; noted plans by Urology for outpatient management of kidney stone which likely be a staged intervention; otherwise, states she is feeling pretty good at this time. Exam Narrative: General: large WD/WN female in NAD Heart: normal S1 and S2; no rub Lungs: decreased at bases Abdomen: soft, nontender, nondistended, positive bowel sounds Extremities: no cyanosis or clubbing; no edema Skin: no nodules Objective Data Vital Signs Vital Signs:
--- NOTE | 2023-08-23 10:33 | PM.PNNEP ---
Progress Note: A&P Assessment and Plan (1) ADAM (acute kidney injury): Code(s): N17.9 - Acute kidney failure, unspecified Status: Acute Assessment and Plan: slow improvement noted normal baseline creatinine (creatinine of 0.74mg/dl in March 2023) however, given her history of microalbuminuria, she have some degree of renal insufficiency creatinine on admission 1.6mg/dl -- appears to have peaked/plateaued at 2.7mg/dl evaluation to date noted: CT scan with obstructive uropathy secondary to kidney stone UA significant for infection urine electrolytes non-prerenal proteinuria rare urine eosinophils CPK normal suspect multifactorial etiology: ATN from infection/sepsis obstruction from nephrolithiasis prerenal factors 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 follow repeat labs and UOP (2) Sepsis: Qualifiers: Sepsis acute organ dysfunction status: with acute organ dysfunction Severe sepsis acute organ dysfunction type: acute renal failure Acute renal failure type: with acute tubular necrosis Severe sepsis shock status: without septic shock Code(s): A41.9 - Sepsis, unspecified organism Status: Acute Assessment and Plan: as noted by tachycardia, tachypena, leukocytosis, lactic acidosis, and ADAM on presentation s/p aggressive IVF resuscitation urine and blood culture with Klebsiella (urosepsis) on antibiotics follow repeat cultures (negative to date) monitor hemodynamics (3) Pyelonephritis: Code(s): N12 - Tubulo-interstitial nephritis, not specified as acute or chronic Status: Acute Assessment and Plan: CT abd/pelvis with prominent perinephric fluid and fat stranding UA c/w with UTI see #2 (4) Calculus, ureteral: Code(s): N20.1 - Calculus of ureter Status: Acute Assessment and Plan: CT abdomen/pelvis showing approximately 6 x 7 mm obstructing proximal right ureteral calculus with moderate right hydronephrosis Urology following s/p cystoscopy with bilateral retrograde pyelogram and bilateral ureteral stent placement (on 08/15) will need definitive stone management after discharge continue supportive therapy (5) Anemia: Code(s): D64.9 - Anemia, unspecified Status: Acute Assessment and Plan: due to ADAM and acute illness anemia studies noted - iron deficient as well on iron follow H/H (6) Type 2 diabetes mellitus with hyperglycemia: Code(s): E11.65 - Type 2 diabetes mellitus with hyperglycemia Status: Chronic Assessment and Plan: follow accu-cheks glycemic control per hospitalists Will continue to follow. Subjective Date/time seen: 08/23/23 10:33 Interval history: Follow-up for acute kidney injury/acute renal failure. Seems to be doing quite well; no pain or discomfort noted; noted plans by Urology for outpatient management of kidney stone which likely be a staged intervention; otherwise, states she is feeling pretty good at this time. Exam Narrative: General: large WD/WN female in NAD Heart: normal S1 and S2; no rub Lungs: decreased at bases Abdomen: soft, nontender, nondistended, positive bowel sounds Extremities: no cyanosis or clubbing; no edema Skin: no nodules Objective Data Vital Signs Vital Signs: Vital Signs Temp Pulse Resp BP Pulse Ox O2 Del Method FiO2 08/23/23 10:04 102 H 20 08/23/23 09:55 110 H 22 H 08/23/23 08:00 Room Air 28 08/23/23 08:30 96.3 F L 88 16 134/99 H 98 08/23/23 05:03 97.1 F L 85 20 134/70 94 08/22/23 20:56 97 F L 87 20 128/81 97 08/22/23 14:15 97.1 F L 102 H 18 138/85 94 Intake/Output Intake/Output: Intake & Output 08/20/23 08/21/23 08/22/23 08/23/23 23:59 23:59 23:59 23:59 Intake Total 1540 1860 2655 840 Output Total 5250 2300 700 Balance -3710 -440 1955 840 Meds/Results Medications:
[2023-08-23 12:14] LABS: Glucose Point of Care 129 mg/dl (65-105)
--- NOTE | 2023-08-23 12:21 | PM.DS ---
DS: Admitting Diagnosis Discharge Date 08/23/2023 Admitting Diagnosis Kidney stone DS: Discharge Diagnosis Discharge Diagnosis (1) Sepsis: Qualifiers: Acute renal failure type: with acute tubular necrosis Sepsis acute organ dysfunction status: with acute organ dysfunction Severe sepsis acute organ dysfunction type: acute renal failure Severe sepsis shock status: without septic shock Code(s): A41.9 - Sepsis, unspecified organism Status: Acute Assessment and Plan: Patient presents with abdominal pain and met SIRS criteria with elevated HR, RR, WBC, lactic (2.7). PCT 4.7. BP stable She received appropriate fluid resuscitation. UA was consistent with UTI. UCx growing klebsiella that is andrea sensitive BCx 08/15 Klebsiella pneumoniae with same sensitivity pattern Repeat BCx 08/17 NGTD MRSA screen negative CXR showing suggestion of mild patchy rather diffuse bilateral pulmonary infiltrates?(CT Abd showing clear lung bases) CT abd/pelvis with approximately 6 x 7 mm obstructing proximal right ureteral calculus with moderate right hydronephrosis, prominent perinephric fluid and fat stranding. Bilateral nephrolithiasis. Bilateral renal indeterminate space-occupying lesions. Splenomegaly. Right adrenal myelolipoma. 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 Status post hysterectomy Source of sepsis: UTI/Pyelonephritis/septic renal stone She was started on ceftriaxone on 08/15 but changed to vancomycin and cefepime for urine and respiratory coverage. WBC normal Vancomycin stopped. Cefepime de-escalated to Rocephin. Pt admitted for urosepsis and infected ureteral stone Pt sp Cystoscopy, bilateral retrograde pyelogram, bilateral ureteral stent placement (6 [place] variable length) Inital BC and UC positive for Klebsiella Rpt BC is negative await Rpt UC Continue iv rocephin for now Creat today is 2.1 baseline is around 1.6 IV fluids started pt hydrated well with iv fluids overnight can transition to oral augmentin today (2) Hypoxia: Code(s): R09.02 - Hypoxemia Status: Acute Assessment and Plan: Patieint hypoxic requiring a couple of liters of O2. CXR as above. ABG 7.36/86 on 2L She is fluid positive and appears edematous. Consider fluid overload with poor UOP IV fluids stopped yesterday Consider Lasix but ADAM Repeat CXR showing mild atelectasis. Weaned to room air. Change neb treatments to prn. (3) Calculus, ureteral: Code(s): N20.1 - Calculus of ureter Status: Acute Assessment and Plan: CT abdomen/pelvis showing approximately 6 x 7 mm obstructing proximal right ureteral calculus with moderate right hydronephrosis, prominent perinephric fluid and fat stranding with bilateral nephrolithiasis. Bilateral renal indeterminate space-occupying lesions Urology consulted and appreciate their input. Patient underwent cystoscopy with bilateral retrograde pyelogram and bilateral ureteral stent placement on 08/16/23 Abx as above. Will need definitive stone management after discharge Follow (4) Pyelonephritis: Code(s): N12 - Tubulo-interstitial nephritis, not specified as acute or chronic Status: Acute Assessment and Plan: CT abd/pelvis: Approximately 6 x 7 mm obstructing proximal right ureteral calculus with moderate right hydronephrosis, prominent perinephric fluid and fat stranding and bilateral renal indeterminate space-occupying lesions. UA consistent with UTI. Urine and blood cultures positive with Klebsiella. Renal US showing right pelviectasis and bilateral renal masses; MRI recommended Abx as above Pt will need to have MRI abdomen with contrast in 2 weeks time after infection cleared and stone removed (5) ADAM (acute kidney injury): Code(s): N17.9 - Acute kidney failure, unspecified Status: Acute Assessment and Plan: Patient has normal baseline renal function; previously 0.74 on
--- NOTE | 2023-08-23 13:16 | PC.NURSE ---
RN called to consult head of history. No answer at this time. RN left voicemail.
--- NOTE | 2023-08-23 13:56 | PCPTNOTE ---
Attempted to see patient for PT, however patient declined due to anticipated discharge.
--- NOTE | 2023-08-23 15:26 | PCCDE ---
08/22 3:00 ? 3:20 pm RN called due to pt?s at outpatient pharmacy confused about insulin/syringes. Pt remembers training on insulin pens. ?Spoke with pharmacist via patient?s phone, insulin vial and syringe were ordered. I spoke with Gideon RN who spoke with MD; order updated to Lantus Solostar pen, Novolog Flexpen AND needles. -? Pt successfully demonstrated use of demo SoloStar insulin pen. - Reviewed timing of the 2 insulins. FJ
--- NOTE | 2023-08-30 16:04 | PCCDE ---
08/30/23 Followed up with patient by phone. Initially had some trouble with lancet, since resolved. Denies issues with insulin injections. She is interested in outpatient MNT. I will reach out to physician for referral. FJ
== END 2023-08-23 16:35 | disposition home health service (06) | DRG 854 ==
LOC: ANHED 17:58 → ANHIMU 19:07 → ANH3MEDSUR 08-20 23:05
PROVIDERS: Student in an Organized Health Care Education/Training Program; Urology; Admitting Provider Internal Medicine; Emergency Provider Emergency Medicine; PCP Family Medicine Adolescent Medicine; Visit Provider Family Medicine
PROC: 0T788DZ Dilation of Bilateral Ureters with Intraluminal Device, Via Natural or Artificial Opening Endoscopic (ICD-10-PCS; CPT 52352; principal; 2023-08-16 21:45)
DX: A41.89 Other specified sepsis (principal); N13.6 Pyonephrosis; N17.9 Acute kidney failure, unspecified; Z68.43 Body mass index [BMI] 50.0-59.9, adult; R65.20 Severe sepsis without septic shock; E11.65 Type 2 diabetes mellitus with hyperglycemia; E03.9 Hypothyroidism, unspecified; E66.01 Morbid (severe) obesity due to excess calories; D63.1 Anemia in chronic kidney disease; D50.9 Iron deficiency anemia, unspecified; K21.9 Gastro-esophageal reflux disease without esophagitis; N32.81 Overactive bladder; R09.02 Hypoxemia; B96.1 Klebsiella pneumoniae [K. pneumoniae] as the cause of diseases classified elsewhere; F41.9 Anxiety disorder, unspecified; F32.A Depression, unspecified; Z98.84 Bariatric surgery status; Z80.0 Family history of malignant neoplasm of digestive organs
CPT/HCPCS: 36415; 36600; 71045; 71046; 74177; 74420; 76775; 80048; 80053; 80069; 81001; 82010; 82550; 82565; 82570; 82607; 82728; 82746; 82805; 82948; 83036; 83540; 83550; 83605; 83690; 83735; 84100; 84145; 84156; 84300; 84540; 85025; 85027; 85999; 86140; 87040; 87077; 87086; 87088; 87186; 87641; 94640; 96361; 96365; 96375; 96376; 97110; 97161; 97165; 97530; 97535; 99285; A9270; C1758; C1769; C2617; C9113; G0378; J0692; J0696; J1100; J1815; J1885; J2250; J2270; J2405; J2704; J3010; J3370; J7030; J7120; Q9966; Q9967

== ENCOUNTER 2023-09-05 01:13 | Day surgery (SDC) | payer MEDICARE, OTHER, SELFPAY ==
--- NOTE | 2023-09-02 04:37 | PM.HPGS ---
History of Present Illness History of Present Illness Consent: Risks, benefits, and alternatives have been discussed and questions answered. Patient agrees to proceed with procedure. Chief complaint: Lee Renal Calculus Narrative: Estefany Li is a 58 year old female Recently admitted with bilateral urolithiasis, obstructing ureteral stones in the right with a urinary tract infection. She has smaller stones in the right ureter and kidney with a large 2 cm stone in her left renal pelvis. She has bilateral ureteral stents placed. After discussion of options she has elected for staged ureteroscopy with laser lithotripsy, stone extraction. She is aware the risks including, not limited to, hematuria, adverse cardiopulmonary events, need for multiple procedures. Review of Systems Review of Systems: All systems reviewed & are unremarkable except as noted in HPI and below PMFSH Past Medical History Medical History Gastro-esophageal reflux disease without esophagitis Hypothyroidism, unspecified Major depressive disorder, recurrent severe without psychotic features Morbid (severe) obesity due to excess calories Overactive bladder Type 2 diabetes mellitus with hyperglycemia Surgical History Surgical History History of endometrial ablation (2003) History of gastric bypass (2004) History of hysterectomy (2005) Family History Family History Father Carcinoma of colon Alcoholism Sibling Diabetes mellitus DVT (deep venous thrombosis) Uterine cancer Cerebrovascular accident Mother Family history of heart disease in male family member before age 55 Heart failure Sibling Diabetes mellitus Social History Social History Years smoked: 30 Smoking status: Former smoker Alcohol intake: never Substance use: never Do You Feel Safe in your Home?: Yes Lack of Transportation: YES Lack of Food: Never True Current Housing: I Have Housing Concerned About Future Housing: YES Difficulty Paying Gas/Electric Bills: No Difficulty Paying for Meds: No Currently Unemployed: No Education: Decline to Answer Difficulty w/ Childcare or Family Care: No Spiritual care concerns: No Meds Home Medications and Allergies Home Medications Medication Instructions Recorded Confirmed Type oxybutynin chloride 10 mg 20 mg PO DAILY #180 tabs 03/19/23 08/16/23 Rx tablet,extended release 24 hr omeprazole 40 mg capsule,delayed 40 mg PO DAILY #90 caps 03/31/23 08/16/23 Rx release glimepiride 1 mg tablet 1 mg PO QAM #90 tabs 04/02/23 08/16/23 Rx pioglitazone 30 mg tablet 30 mg PO DAILY #90 tabs 04/02/23 08/16/23 Rx bupropion HCl 300 mg 24 hr tablet, 300 mg PO DAILY 08/16/23 08/16/23 History extended release buspirone 10 mg tablet See Rx Instructions .Route .COMPLEX 08/16/23 08/16/23 History fenofibrate 160 mg tablet 160 mg PO DAILY 08/16/23 08/16/23 History quetiapine 100 mg tablet 100 mg PO HS 08/16/23 08/16/23 History sertraline 100 mg tablet 100 mg PO DAILY 08/16/23 08/16/23 History trazodone 100 mg tablet 100 mg PO HS 08/16/23 08/16/23 History amlodipine 5 mg tablet (Norvasc) 5 mg PO QAM #30 tabs 08/23/23 Rx amoxicillin 500 mg-potassium 1 tablet PO Q12H 7 days #14 tabs 08/23/23 Rx clavulanate 125 mg tablet (Augmentin) blood sugar diagnostic #50 ea 08/23/23 Rx blood-glucose meter (Blood Glucose #1 ea 08/23/23 Rx Monitoring kit) ferrous sulfate 325 mg (65 mg 325 mg PO DAILY #30 tabs 08/23/23 Rx iron) tablet,delayed release insulin aspart U-100 100 unit/mL 5 unit (0.05 mL) subcut TID #15 mL 08/23/23 Rx (3 mL) subcutaneous pen (Novolog FlexPen U-100 Insulin aspart) insulin glargine 100 unit/mL (3 15 unit (0.15 mL) subcut QAM #15 mL 08/23/23 Rx mL) s
[2023-09-02 13:01] VITALS: BMI 54.1
--- NOTE | 2023-09-02 13:08 | PC.NURSE ---
Report to the Outpatient Waiting Room, entrance under the green pavilion located off [facility], at time _0800_ on date _[id number]_. Planned Procedure Time: _1000_. Time changes happen often and if your time is changed the preop area will call you the afternoon before. - You and your visitor will be asked to self-screen and do not enter if you have any COVID symptoms. - A mask is optional within the hospital at this time. Patients may have clear liquids (water, carbonated beverages, clear teas, apple juice) until 3 hours prior to surgery with a maximum of 20 ounces. - No food from midnight until time of surgery Take the following medications with a SIP of water the morning of surgery: ___Amlodipine, Bupropion, Buspirone, Sertraline and Pioglitazone__ DO NOT STOP ANY OF YOUR OTHER PRESCRIPTION MEDICATIONS PRIOR TO SURGERY ?EXCEPT THE FOLLOWING Medications to discontinue per physician ____Multivitamin and Iron Date to take last dose__Patient stopped these on [id number] Please no make-up, nail amharic, hairspray, perfume, deodorant, or body powder the day of surgery. No jewelry (including any body piercings) or valuables the day of surgery, leave them at home. Please take a shower or bath the night before, or the morning of, surgery with an antibacterial soap. Wear comfortable, loose fitting clothing. - Jewelry must be removed prior to entering the operating room. Rings and piercings that are not removed may be cut off. - The hospital will not accept responsibility for valuables. - Please leave all valuables, including medications, at home the day of surgery. If you are going home after surgery, a licensed telephone directory distributor driver must drive you home. - NO public transportation without another adult if you receive anesthesia. - We recommend that an adult stay with you for 24 hours following discharge. - We also recommend that you do not drive, make important decision, drink alcoholic beverages, or take any drugs that were not prescribed by your health care provider for at least 24 hours after your discharge time. Follow any additional instructions given to you from your surgeon. If you or anyone in your household have experienced Covid symptoms in the past week, please notify your surgeon or the nurse liaison at the phone number below for possible testing. Telephone instructions given to DeisyEstefany and asked if any additional questions and then verbalized understanding. Patient advised to call surgeon office or pre surgery nurse liaison [phone] if any additional questions.
[2023-09-05] VITALS (7 sets, daily range): BP systolic 123–146; BP diastolic 64–84; PULSE 89–102; RESP 12–22; TEMP 36.3–36.4; O2SAT 94–100
--- NOTE | ~2023-09-05 | XR_ITS ---
EXAMINATION: XR retrograde pyelo w/stent RT DATE: 09/05/2023 10:55 INDICATION: Right stent exchange TECHNIQUE: Fluoroscopic images from a right internal ureteral stent exchange are submitted for review . 88 seconds of fluoroscopy time. FINDINGS: There is a right double-J internal ureteral stent projecting in expected position, with proximal [place] loop at the level of the renal pelvis and distal loop in the pelvis within the bladder lumen. There is also a left internal ureteral stent present. IMPRESSION: 1. Right internal ureteral stent exchange. Please refer to real-time procedural findings for detail s. Reviewed, dictated and finalized at location B. IMPRESSION: 1. Right internal ureteral stent exchange. Please refer to real-time procedur al findings for details.
--- NOTE | 2023-09-05 07:37 | ECG_ITS ---
SEE SCANNED COPY FOR CONFIRMED REPORT. MTDD
[2023-09-05 07:56] LABS: Glucose Point of Care 177 mg/dl (65-105)
[2023-09-05] MEDS: LACTATED RINGERS 1,000 ML 30 ML IV CONT (08:15)
--- NOTE | 2023-09-05 08:43 | WPDHPUPDATE1 ---
History and Physical Update Update Date/Time: 09/05/23 08:43 History and Physical has been reviewed, including an updated exam of the patient. There are NO changes in the patient's condition. Risks, benefits, and alternatives have been discussed and questions answered. Patient agrees to proceed with procedure.
--- NOTE | 2023-09-05 09:19 | WPDANESEPPF ---
Anes - Initial Pre Proc Eval Procedure: Operation Date: 09/05/23 08:30 Proposed Procedures p Cystoscopy, Right Ureteroscopy, Right Stone Extraction, Possible Holmium Laser Lithotripsy, Possible Retrograde Pyelogram, Possible Right Stent Replacement - Oren Godoy MD Date/Time: 09/05/23 09:19 Surgeon: Oren Godoy MD Pre Op Diagnosis: Lee Renal Calculus Patient Data Age: 58 Gender: F Height: 1.7 m Weight: 145.5 kg Last Vital Signs Temp 97.6 F 09/05/23 07:30 Pulse 102 H 09/05/23 07:30 Resp 16 09/05/23 07:30 BP 142/64 H 09/05/23 07:30 Pulse Ox 94 09/05/23 07:30 O2 Del Method Room Air 09/05/23 07:30 Allergies Allergy/AdvReac Type Severity Reaction Status Date / Time Sulfa (Sulfonamide Allergy Mild Topical Verified 09/05/23 09:04 Antibiotics) Sulfa=Rash,Redness metformin AdvReac Intermediate Diarrhea Verified 09/05/23 09:04 Home Medications Medication Instructions Recorded Confirmed Type oxybutynin chloride 10 mg 20 mg PO DAILY #180 tabs 03/19/23 09/05/23 Rx tablet,extended release 24 hr omeprazole 40 mg capsule,delayed 40 mg PO DAILY #90 caps 03/31/23 09/05/23 Rx release glimepiride 1 mg tablet 1 mg PO QAM #90 tabs 04/02/23 09/05/23 Rx pioglitazone 30 mg tablet 30 mg PO DAILY #90 tabs 04/02/23 09/05/23 Rx bupropion HCl 300 mg 24 hr tablet, 300 mg PO DAILY 08/16/23 09/05/23 History extended release buspirone 10 mg tablet See Rx Instructions .Route .COMPLEX 08/16/23 09/05/23 History fenofibrate 160 mg tablet 160 mg PO DAILY 08/16/23 09/05/23 History quetiapine 100 mg tablet 100 mg PO HS 08/16/23 09/05/23 History sertraline 100 mg tablet 100 mg PO DAILY 08/16/23 09/05/23 History trazodone 100 mg tablet 100 mg PO HS 08/16/23 09/05/23 History amlodipine 5 mg tablet (Norvasc) 5 mg PO QAM #30 tabs 08/23/23 09/05/23 Rx blood sugar diagnostic #50 ea 08/23/23 09/05/23 Rx blood-glucose meter (Blood Glucose #1 ea 08/23/23 09/05/23 Rx Monitoring kit) ferrous sulfate 325 mg (65 mg 325 mg PO DAILY #30 tabs 08/23/23 09/05/23 Rx iron) tablet,delayed release insulin aspart U-100 100 unit/mL 5 unit (0.05 mL) subcut TID #15 mL 08/23/23 09/05/23 Rx (3 mL) subcutaneous pen (Novolog FlexPen U-100 Insulin aspart) insulin glargine 100 unit/mL (3 15 unit (0.15 mL) subcut QAM #15 mL 08/23/23 09/05/23 Rx mL) subcutaneous pen (Lantus Solostar U-100 Insulin) pen needle, diabetic 30 gauge x #1,200 ea 08/23/23 09/05/23 Rx 5/16 (Pen Needle) blood sugar diagnostic (OneTouch #100 ea 08/29/23 09/05/23 Rx Ultra Test strips) blood-glucose meter (OneTouch #1 ea 08/29/23 09/05/23 Rx Ultra2 Meter) lancets 31 gauge #100 ea 08/29/23 09/05/23 Rx Laboratory Tests 09/05/23 07:53 POC Capillary Glucose 177 H mg/dl (65-105) Patient hx anesthesia problems: none Family hx anesthesia problems: none Results Review: All pre-operative results and documents have been reviewed as part of the pre-operative evaluation. [facility] Past Medical History Medical History Gastro-esophageal reflux disease without esophagitis Hypothyroidism, unspecified Major depressive disorder, recurrent severe without psychotic features Morbid (severe) obesity due to excess calories Overactive bladder Type 2 diabetes mellitus with hyperglycemia Surgical History Surgical History History of endometrial ablation (2003) History of gastric bypass (2004) History of hysterectomy (2005) Family History Family History Father Carcinoma of colon Alcoholism Sibling Diabetes mellitus DVT (deep venous thrombosis) Uterine cancer Cerebrovascular accident Mother Family history of heart disease in male family member before age 55 Heart failure Sibling Diabetes mellitus Social History Social History (Rev
[2023-09-05] MEDS: ceFAZolin 3 GM/D5W 100 ML 100 ML IVPB (09:27)
--- NOTE | 2023-09-05 10:55 | W.PM.PROC2 ---
Procedure Note - Detailed Date of Procedure 09/05/23 Pre-op Diagnosis Lee Renal Calculus Post-op Diagnosis Same Procedure Performed Cystoscopy, right ureteral stent removal, right retrograde pyelography, right ureteroscopy with laser lithotripsy, stone extraction and stent replacement Surgeon Oren Godoy MD Anesthesia General Description of Procedure Patient is brought to the operative suite where she is prepped and draped in routine sterile fashion while in dorsal lithotomy position after the uneventful induction of a general LMA anesthetic. Cystoscopy is undertaken with a 19 F rigid cystoscope. The tip of the indwelling stent is grasped and brought to the external urethral meatus. A 0.035 in glidewire was advanced in the right renal pelvis. The distal ureter was dilated with an 8 F / 10 F dilator and a 11 F/ 13 F ureteral access sheath was placed. Ureteroscopy was undertaken with a 7.5 F flexible ureteral scope. She has probably prox mid Jo 25 stones in the right lower pole calyx. Using a 200 micron Rohan fiber and a combination of dusting and direct a contact lithotripsy I fractured the stones into small pieces which all appeared to be less than 2-3 mm and should pass spontaneously. Larger fragments were removed with a 1.9 F disposable basket. A 4.8 F variable length stent is replaced. The patient tolerated the procedure well was taken recovery room good condition. Drains Yes Pathology Yes Complications No immediate complications Condition Stable Disposition PACU
[2023-09-05 10:59] LABS: Glucose Point of Care 174 mg/dl (65-105)
[2023-09-05] MEDS: oxyCODONE HCL (*CRX) 5 MG TAB IR PO (11:31)
== END 2023-09-05 12:06 | disposition home or self-care (01) ==
PROVIDERS: PCP Family Medicine Adolescent Medicine; Visit Provider Urology
PROC: (CPT 52352; principal; 2023-09-05 08:30)
DX: N20.1 Calculus of ureter (principal); K21.9 Gastro-esophageal reflux disease without esophagitis; E03.9 Hypothyroidism, unspecified; F33.2 Major depressive disorder, recurrent severe without psychotic features; N32.81 Overactive bladder; E11.65 Type 2 diabetes mellitus with hyperglycemia; E66.01 Morbid (severe) obesity due to excess calories; Z68.43 Body mass index [BMI] 50.0-59.9, adult; Z79.84 Long term (current) use of oral hypoglycemic drugs; Z79.4 Long term (current) use of insulin; Z98.890 Other specified postprocedural states; Z98.84 Bariatric surgery status; Z87.891 Personal history of nicotine dependence; Z80.0 Family history of malignant neoplasm of digestive organs; Z80.49 Family history of malignant neoplasm of other genital organs; Z82.49 Family history of ischemic heart disease and other diseases of the circulatory system
CPT/HCPCS: 52356; 74420; 82365; 82948; 88300; 93005; A9270; C1769; C2617; J0690; J2250; J3010; J7120; Q9966

== ENCOUNTER 2023-09-18 10:00 | Outpatient (CLI) | payer MEDICARE, OTHER, SELFPAY ==
--- NOTE | ~2023-09-18 | XR_ITS ---
Supine and upright views of the abdomen Clinical history: Renal stone Findings: Bowel gas pattern is nonspecific. No evidence for obstruction or free air. No abnormal mass lesion or calcification is seen. Bilateral ureteral stents are in place. Probable large left renal s tone near the pelvis measuring 2 cm in diameter. Additional adjacent left renal stone measures 0.9 cm . Probable stones in the right lower renal pole, measuring up to 1.8 cm in diameter. Osseous structur es are intact. Impression: Bilateral nephrolithiasis, as detailed above, bilateral ureteral stents in place. Reviewed, dictated and finalized at location M. Impression: Bilateral nephrolithiasis, as detailed above, bilateral ureteral stents in plac e.
== END 2023-09-18 10:01 ==
LOC: MICIMG 10:04
PROVIDERS: PCP Urology; Visit Provider Urology
DX: N20.0 Calculus of kidney (principal)
CPT/HCPCS: 74018

== ENCOUNTER 2023-10-17 03:52 | Day surgery (SDC) | payer MEDICARE, OTHER, SELFPAY ==
[2023-10-07 14:54] VITALS: BMI 49.8
--- NOTE | 2023-10-07 14:55 | PC.NURSE ---
Report to the Outpatient Waiting Room, entrance under the green pavilion located off [facility], at time _1000_ on date _[id number]_. Planned Procedure Time: _1200_. Time changes happen often and if your time is changed the preop area will call you the afternoon before. - You and your visitor will be asked to self-screen and do not enter if you have any COVID symptoms. - A mask is optional within the hospital at this time. Patients may have clear liquids (water, carbonated beverages, clear teas, apple juice) until 3 hours prior to surgery with a maximum of 20 ounces. - No food from midnight until time of surgery Take the following medications with a SIP of water the morning of surgery: ____Amlodipine, Bupropion, Buspirone, Sertraline and 1/2 dose Lantus insulin._ DO NOT STOP ANY OF YOUR OTHER PRESCRIPTION MEDICATIONS PRIOR TO SURGERY ?EXCEPT THE FOLLOWING Medications to discontinue per physician ___None Date to take last dose Please no make-up, nail singaporean, hairspray, perfume, deodorant, or body powder the day of surgery. No jewelry (including any body piercings) or valuables the day of surgery, leave them at home. Please take a shower or bath the night before, or the morning of, surgery with an antibacterial soap. Wear comfortable, loose fitting clothing. - Jewelry must be removed prior to entering the operating room. Rings and piercings that are not removed may be cut off. - The hospital will not accept responsibility for valuables. - Please leave all valuables, including medications, at home the day of surgery. If you are going home after surgery, a licensed milk pickup truck driver must drive you home. - NO public transportation without another adult if you receive anesthesia. - We recommend that an adult stay with you for 24 hours following discharge. - We also recommend that you do not drive, make important decision, drink alcoholic beverages, or take any drugs that were not prescribed by your health care provider for at least 24 hours after your discharge time. Follow any additional instructions given to you from your surgeon. If you or anyone in your household have experienced Covid symptoms in the past week, please notify your surgeon or the nurse liaison at the phone number below for possible testing. Telephone instructions given to _Marty___and asked if any additional questions and then verbalized understanding. Patient advised to call surgeon office or pre surgery nurse liaison [phone] if any additional questions.
[2023-10-17] VITALS (9 sets, daily range): BP systolic 135–154; BP diastolic 81–93; PULSE 88–97; RESP 15–19; TEMP 36.6–36.9; O2SAT 90–100
--- NOTE | ~2023-10-17 | XR_ITS ---
EXAMINATION: XR retrograde pyelo w/stent LT DATE: 10/17/2023 11:44 INDICATION: Right internal ureteral stent placement TECHNIQUE: Fluoroscopic images from a left internal ureteral stent placement are submitted for review . 30 seconds of fluoroscopy time. 4 fluoroscopic images FINDINGS: There is a left double-J internal ureteral stent projecting in expected position, with proximal [place] loop at the level of the renal pelvis and distal loop in the pelvis within the bladder lumen. IMPRESSION: 1. Left internal ureteral stent placement. Please refer to real-time procedural findings for detail s. Reviewed, dictated and finalized at location B. IMPRESSION: 1. Left internal ureteral stent placement. Please refer to real-time procedur al findings for details.
--- NOTE | 2023-10-17 06:15 | WPDHPUPDATE1 ---
History and Physical Update Update Date/Time: 10/17/23 06:15 History and Physical has been reviewed, including an updated exam of the patient. There are NO changes in the patient's condition. Risks, benefits, and alternatives have been discussed and questions answered. Patient agrees to proceed with procedure.
[2023-10-17 10:09] LABS: Glucose Point of Care 132 mg/dl (65-105)
[2023-10-17] MEDS: LACTATED RINGERS 1,000 ML 30 ML IV CONT ×2 (10:15→12:14)
--- NOTE | 2023-10-17 10:39 | WPDANESEPPF ---
Anes - Initial Pre Proc Eval Procedure: Operation Date: 10/17/23 12:00 Proposed Procedures p Cystoscopy, Left Ureteroscopy with Laser Lithotripsy, Left Ureteral Stent Placement - Oren Godoy MD Date/Time: 10/17/23 10:39 Surgeon: Oren Godoy MD Pre Op Diagnosis: large renal stone Patient Data Age: 58 Gender: F Height: 1.7 m Weight: 145.7 kg Last Vital Signs Temp 97.9 F 10/17/23 09:41 Pulse 96 10/17/23 09:41 Resp 16 10/17/23 09:41 BP 136/82 10/17/23 09:41 Pulse Ox 97 10/17/23 09:41 O2 Del Method Room Air 10/17/23 09:41 Allergies Allergy/AdvReac Type Severity Reaction Status Date / Time Sulfa (Sulfonamide Allergy Mild Topical Verified 10/07/23 14:50 Antibiotics) Sulfa=Rash,Redness metformin AdvReac Intermediate Diarrhea Verified 10/07/23 14:50 Home Medications Medication Instructions Recorded Confirmed Type oxybutynin chloride 10 mg 20 mg PO DAILY #180 tabs 03/19/23 10/07/23 Rx tablet,extended release 24 hr omeprazole 40 mg capsule,delayed 40 mg PO DAILY #90 caps 03/31/23 10/07/23 Rx release glimepiride 1 mg tablet 1 mg PO QAM #90 tabs 04/02/23 10/07/23 Rx pioglitazone 30 mg tablet 30 mg PO DAILY #90 tabs 04/02/23 10/07/23 Rx bupropion HCl 300 mg 24 hr tablet, 300 mg PO DAILY 08/16/23 10/07/23 History extended release buspirone 10 mg tablet See Rx Instructions .Route .COMPLEX 08/16/23 10/07/23 History fenofibrate 160 mg tablet 160 mg PO DAILY 08/16/23 10/07/23 History quetiapine 100 mg tablet 100 mg PO HS 08/16/23 10/07/23 History sertraline 100 mg tablet 100 mg PO DAILY 08/16/23 10/07/23 History trazodone 100 mg tablet 100 mg PO HS 08/16/23 10/07/23 History blood sugar diagnostic #50 ea 08/23/23 10/07/23 Rx blood-glucose meter (Blood Glucose #1 ea 08/23/23 10/07/23 Rx Monitoring kit) insulin aspart U-100 100 unit/mL 5 unit (0.05 mL) subcut TID #15 mL 08/23/23 10/07/23 Rx (3 mL) subcutaneous pen (Novolog FlexPen U-100 Insulin aspart) insulin glargine 100 unit/mL (3 15 unit (0.15 mL) subcut QAM #15 mL 08/23/23 10/07/23 Rx mL) subcutaneous pen (Lantus Solostar U-100 Insulin) pen needle, diabetic 30 gauge x #1,200 ea 08/23/23 10/07/23 Rx 5/16 (Pen Needle) blood-glucose meter (OneTouch #1 ea 08/29/23 10/07/23 Rx Ultra2 Meter) lancets 31 gauge #100 ea 08/29/23 10/07/23 Rx pen needle, diabetic 31 gauge x #400 ea 09/10/23 10/07/23 Rx 3/16 (Comfort EZ [facility]) blood sugar diagnostic (OneTouch #100 ea 10/14/23 Rx Verio test strips) Laboratory Tests 10/17/23 10:07 POC Capillary Glucose 132 H mg/dl (65-105) Patient hx anesthesia problems: none Family hx anesthesia problems: none Results Review: All pre-operative results and documents have been reviewed as part of the pre-operative evaluation. [facility] Past Medical History Medical History Gastro-esophageal reflux disease without esophagitis Hypothyroidism, unspecified Major depressive disorder, recurrent severe without psychotic features Morbid (severe) obesity due to excess calories Overactive bladder Type 2 diabetes mellitus with hyperglycemia Surgical History Surgical History History of endometrial ablation (2003) History of gastric bypass (2004) History of hysterectomy (2005) Family History Family History Father Carcinoma of colon Alcoholism Sibling Diabetes mellitus DVT (deep venous thrombosis) Uterine cancer Cerebrovascular accident Mother Family history of heart disease in male family member before age 55 Heart failure Sibling Diabetes mellitus Social History Social History Smoking packs per day: 1 Smoking cigarettes per day: 20.0 Years smoked: 30 Smoking pack-years: 30.00 Sm
[2023-10-17] MEDS: ceFAZolin 3 GM/D5W 100 ML 100 ML IVPB (10:48)
--- NOTE | 2023-10-17 12:09 | W.PM.PROC2 ---
Procedure Note - Detailed Date of Procedure 10/17/23 Pre-op Diagnosis Large left renal stone Post-op Diagnosis Same Procedure Performed Cystoscopy, right ureteral stent removal, left ureteroscopy with laser lithotripsy large renal stone, left retrograde pyelography, left ureteral stent replacement Surgeon Oren Godoy MD Anesthesia General Description of Procedure Patient brought the operative suite where she has prepped draped in routine sterile fashion while in dorsal lithotomy position after the uneventful induction of a general anesthetic. Twenty-one F rigid cystoscope was placed in the bladder in the right ureteral stent is removed with ease. Left ureteral stent is removed and a 0.035 in glidewire was advanced into her left renal pelvis. Distal ureter was dilated with an 8 F 10 F dilator and a 11 F / 13 F ureteral access sheath was placed. Ureteroscopy undertaken with a 7.5 F flexible ureteral scope. Her large renal pelvic stone is easily identified and fractured using a dusting technique with a 272 micron Rohan laser fiber. The stone was quite soft dusting was completed and very effective. All fragments were estimated to be 2 mm or less. I did remove a couple fragments for analysis. Retrograde pyelography was performed and thorough inspection of her collecting system showed no additional stones. 4.8 F variable length stent was repositioned with the proximal coil in renal pelvis and distal coil in the bladder. Patient tolerated the procedure well Pathology Yes Complications No immediate complications Condition Stable
--- NOTE | 2023-10-17 12:15 | SUR.PHASEI ---
1214: Simple mask removed.
[2023-10-17 12:22] LABS: Glucose Point of Care 139 mg/dl (65-105)
== END 2023-10-17 13:40 | disposition home or self-care (01) ==
PROVIDERS: PCP Family Medicine Adolescent Medicine; Visit Provider Urology
PROC: (CPT 52352; principal; 2023-10-17 12:00)
DX: N20.0 Calculus of kidney (principal); E11.9 Type 2 diabetes mellitus without complications; E03.9 Hypothyroidism, unspecified; K21.9 Gastro-esophageal reflux disease without esophagitis; N32.81 Overactive bladder; F33.2 Major depressive disorder, recurrent severe without psychotic features; Z79.84 Long term (current) use of oral hypoglycemic drugs; Z79.4 Long term (current) use of insulin; Z87.891 Personal history of nicotine dependence; E66.01 Morbid (severe) obesity due to excess calories; Z68.43 Body mass index [BMI] 50.0-59.9, adult
CPT/HCPCS: 52356; 74420; 82365; 82948; 88300; C1769; C1894; C2617; J0690; J1100; J2250; J2405; J2704; J3010; J7120; Q9966

== ENCOUNTER 2024-09-29 10:02 | Outpatient (CLI) | payer MEDICARE, OTHER, SELFPAY ==
--- NOTE | ~2024-09-29 | XR_ITS ---
XR abdomen/kub 1V Ordering provider: Kaitlyn London, ARIANNA History: . BILATERAL KIDNEY STONES . Comparison: None. FINDINGS: BOWEL: Nonobstructive bowel gas pattern. ORGANOMEGALY: None. SIGNIFICANT PATHOLOGIC CALCIFICATIONS: Stones seen in the right upper ureter. Right kidney stones wit h the largest measuring 1.3 cm.. Highly suggestive of stones in the left kidney. OTHER: No free air is seen under the diaphragm. Degenerative spine. Bilateral hip osteoarthritic changes. IMPRESSION: NO ACUTE ABDOMINAL FINDINGS. Bilateral kidney stones. Stone in the right upper ureter measuring 5 mm. Reviewed, dictated and finalized at location A.
--- OUTSIDE RECORDS SUMMARY | 2024-09-29 10:08 | XMS_ITS | Patient Health Record ---
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 Crew Pusher Name Role Phone Ronny Young MD Primary Care Provider Veronica Angelita Perez Unavailable [phone] Allergies Allergen (clinical drug ingredient) Drug/Non Drug Allergy documented on EMR Reaction Allergy Type Onset Date Status Substance with sulfonamide structure and antibacterial mechanism of action (substance) SULFA (SULFONAMIDE ANTIBIOTICS) (uncoded) Unknown Allergy 09/17/2023 Active metformin Metformin diarrhea Drug Allergy Active Reason For Referral No Information Medications Medication SIG (Take, Route, Frequency, Duration) Notes Start Date End Date Status busPIRone HCl 10 MG 1 tablet Oral 3 times a day for 90 days 11/19/2024 Active Sertraline HCl 100 MG 1 tablet Oral Once a day for 90 days Active TRUEPLUS PEN NEEDLE 31 gauge x 5/16 MISCELLANEOUS *Reorder from [employer] for eRx and Interaction Alerts* 07/30/2023 Active BD ULTRA-FINE PEN NEEDLE 31 gauge x 3/16 MISCELLANEOUS *Reorder from [employer] for eRx and Interaction Alerts* 07/30/2023 Active buPROPion HCl ER (XL) 300 MG 1 tablet every morning Oral Once a day for 90 days Active QUEtiapine Fumarate 200 MG 1 tablet Oral at bedtime for 90 days Active Pioglitazone HCl 30 MG Oral 07/30/2023 Active traZODone HCl 100 MG 1 tablet at bedtime Oral bedtime for 90 days Active Fenofibrate 160 MG Oral 07/30/2023 Active ONETOUCH VERIO REFLECT METER *Reorder from [employer] for eRx and Interaction Alerts* 07/30/2023 Active OneTouch Verio In Vitro 07/30/2023 Acti ve amLODIPine Besylate 5 MG Oral 07/30/2023 Active Lantus SoloStar 100 UNIT/ML Subcutaneous 07/30/2023 Active Omeprazole 40 MG Oral 07/30/2023 Ac tive INSULIN ASPART (U-100) 100 UNIT/ML (3 ML) SUBCUTANEOUS PEN *[facility] and Interaction Alert[facility]* 07/30/2023 Active ONETOUCH DELICA PLUS LANCET 30 GAUGE *[facility] from [facility] and Interaction Alert[facility]* 07/30/2023 Active Ferrous Sulfate 325 (65 Fe) MG Oral 07/30/2023 Active Immunizations Vaccine Route Administration Date Status Comme nts Influenza, unspecified formulation Unknown 03/19/2023 A dministered Social History Sex Assigned At : Social History Observation Description Sex Assigned At Female Problems Problem Type SNOMED Code ICD Code Onset Dates Problem Status W/U Status Risk Notes Problem Severe recurrent major depression without psychotic features (55879813) Major depressive disorder, recurrent 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) 4 Active confirmed Problem Generalized anxiety disorder (78104210) Generalized anxiety disorder (F41.1) 4 Active confirmed Problem Posttraumatic stress disorder (07085658) Post-traumatic stress disorder, chronic (F43.12) 4 Active confirmed Problem Insomnia 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 disorder (56928325) Insomnia due to other mental disorder (F51.05) 4 Active confirmed Problem Long-term current use of drug therapy (354112743) Other supervisor intermediates (current) drug therapy (Z79.899) 4 Active confirmed Encounters Encounter Location Date Provider Diagnosis [facility] [place] [facility] [address] [facility] [address] [place] [address] 11/04/2023 Angelita Raza [facility] [place] [facility] [address] [facility] [address] [place] [address] 11/18/2023 Angelita Raza Major depressive disorder, recurrent severe without psychotic features F33.2 ; Generalized anxiety disorder F41.1 ; Insomnia due to other mental disorder F51.05 ; Post-traumatic stress disorder, chronic F43.12 and Other supervisor intermediates (current) drug therapy Z79.899 [facility], [facility] [address] [place] [address] 02/18/2024 Angelita Thery Major depressive disorder, recurrent severe without psychotic features F33.2 ; Generalized anxiety disorder F41.1 ; Insomnia due to other mental disorder F51.05 ; Post-traumatic stress disorder, chronic F43.12 and Other alf (current) drug therapy Z79.899 [facility], [facility] [address] [place] [address] 05/21/2024 Angelita Thery Major depressive disorder, recurrent severe without psychotic features F33.2 ; Generalized anxiety disorder F41.1 ; Insomnia due to other mental disorder F51.05 ; Post-traumatic stress disorder, chronic F43.12 and Other supervisor intermediates (current) drug therapy Z79.899 [facility], [facility] [address] [place] [address] 08/20/2024 Angelita Thery Major depressive disorder, recurrent severe without psychotic features F33.2 ; Generalized anxiety disorder F41.1 ; Insomnia due to other mental disorder F51.05 ; Post-traumatic stress disorder, chronic F43.12 and Other alf (current) drug therapy Z79.899 [facility] [address] [place] [address] 10/25/2023 Angelita Thery [facility] [address] [place] [address] 11/15/2023 Angelita Thery Generalized anxiety disorder F41.1 [facility] [address] [place] [address] 08/21/2024 Angelita Thery Generalized anxiety disorder F41.1 [facility] [address] [place] [address] 11/06/2023 Angelita Thery [facility], [facility] [address] [place] [address] 2024 Angelita Thery Generalized anxiety disorder F41.1 [facility] [address] [place] [address] 06/11/2024 Angelita Therpilar Generalized anxiety disorder F41.1 Assessments Encounter Date Diagnosis (ICD Code) Assessment Notes Treatment Notes Treatment Clinical Notes Section Notes 11/15/2023 Generalized anxiety disorder (ICD-10 - F41.1) 11/18/2023 Major depressive disorder, recurrent severe without psychotic features (ICD-10 - F33.2) Preventing Depression From Coming Back: Care Instructions material was published, Seasonal Affective Disorder: Care Instructions material was published, Depression Treatment: Care Instructions material was published discussion with patient about course of treatment and patient instructions. 1. Moderate recurrent major depression - Seroquel 200 mg at night- patient had agitation and anger and increase depression with GDR Seroquel to 100 mg dose failed 06/17/23 patient reported no refill needed has rx at home Wellbutrin XL 300 MG DAILY Monitor depression, and mood labs reviewed from PCP 03/28 HLD A1C scanned into chart Monitor for depression, SI stable educated on all medications, benefits, side effects and risk, and educated on depression, anxiety, and mood d/o and educated on compliance of medications, appointment's, continue therapy discussion with patient about course of treatment and patient instructions. patient reported no refills needed on rx refer to therapy - Jerilyn reviewed PCP note and labs 03/28 F33.1: Major depressive disorder, recurrent, moderate quetiapine 200 mg tablet - TAKE 1 TABLET BY MOUTH DAILY AT BEDTIME Qty: (90) tablet Refills: 0 Pharmacy: [facility] 2. Generalized anxiety disorder - Zoloft 150 mg daily GDR 12/14/22 Buspar 10 mg three times a day Obtain labs PCP F41.1: Generalized anxiety disorder 3. 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 Chronic post-traumatic stress disorder -schedule therapy Patient prefer to wait at this time F43.12: Post-traumatic stress disorder, chronic 5. Long-term drug therapy Z79.899: Other supervisor intermediates (current) drug therapy Discussion Notes refer to therapy - Jerilyn reviewed PCP note and labs 03/2811/18/2023 Generalized anxiety disorder (ICD-10 - F41.1) Generalized Anxiety Disorder: Care Instructions material was published, Learning About Generalized Anxiety Disorder material was published, Learning About Anxiety Disorders material was published discussion with patient about course of treatment and patient instructions. 1. Moderate recurrent major depression - Seroquel 200 mg at night- patient had agitation and anger and increase depression with GDR Seroquel to 100 mg dose failed 06/17/23 patient reported no refill needed has rx at home Wellbutrin XL 300 MG DAILY Monitor depression, and mood labs reviewed from PCP 03/28 HLD A1C scanned into chart Monitor for depression, SI stable educated on all medications, benefits, side effects and risk, and educated on depression, anxiety, and mood d/o and educated on compliance of medications, appointment's, continue therapy discussion with patient about course of treatment and patient instructions. patient reported no refills needed on rx refer to therapy - Jerilyn reviewed PCP note and labs 03/28 F33.1: Major depressive disorder, recurrent, moderate quetiapine 200 mg tablet - TAKE 1 TABLET BY MOUTH DAILY AT BEDTIME Qty: (90) tablet Refills: 0 Pharmacy: [facility] 2. Generalized anxiety disorder - Zoloft 150 mg daily GDR 12/14/22 Buspar 10 mg three times a day Obtain labs PCP F41.1: Generalized anxiety disorder 3. 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 Chronic post-traumatic stress disorder -schedule therapy Patient prefer to wait at this time F43.12: Post-traumatic stress disorder, chronic 5. Long-term drug therapy Z79.899: Other supervisor intermediates (current) drug therapy Discussion Notes refer to therapy - Jerilyn reviewed PCP note and labs 03/2802/18/2024 Major depressive disorder, recurrent severe without psychotic features (ICD-10 - F33.2) Preventing Depression From Coming Back: Care Instructions material was published, Seasonal Affective Disorder: Care Instructions material was published, Depression Treatment: Care Instructions material was published Preventing Depression From Coming Back: Care Instructions material was published, Seasonal Affective Disorder: Care Instructions material was published, Depression Treatment: Care Instructions material was published discussion with patient about course of treatment and patient instructions. 1. recurrent major depression - Seroquel 200 mg at night- patient had agitation and anger and increase depression with GDR Seroquel to 100 mg dose failed 06/17/23 patient reported no refill needed has rx at home Wellbutrin XL 300 MG DAILY Monitor depression, and mood labs reviewed from PCP 03/28 HLD A1C scanned into chart Monitor for depression, SI stable educated on all medications, benefits, side effects and risk, and educated on depression, anxiety, and mood d/o and educated on compliance of medications, appointment's, continue therapy discussion with patient about course of treatment and patient instructions. patient reported no refills needed on rx refer to therapy - Jerilyn 2. Generalized anxiety disorder - Zoloft 150 mg daily GDR 12/14/22 Buspar 10 mg three times a day Obtain labs PCP 3. 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 Chronic post-traumatic stress disorder -schedule therapy Patient prefer to wait at this time 5. Long-term drug therapy 05/21/2024 Major depressive disorder, recurrent severe without psychotic features (ICD-10 - F33.2) Preventing Depression From Coming Back: Care Instructions material was published, Seasonal Affective Disorder: Care Instructions material was published, Depression Treatment: Care Instructions material was published Preventing Depression From Coming Back: Care Instructions material was published, Seasonal Affective Disorder: Care Instructions material was published, Depression Treatment: Care Instructions material was published discussion with patient about course of treatment and patient instructions. 1. recurrent major depression - Seroquel 200 mg at night- hx patient had agitation and anger and increase depression with GDR Seroquel to 100 mg dose failed 06/17/23 patient reported no refill needed has rx at home Wellbutrin XL 300 MG DAILY Monitor depression, and mood labs PCP Monitor for depression, SI stable educated on all medications, benefits, side effects and risk, and educated on depression, anxiety, and mood d/o and educated on compliance of medications, appointment's, continue therapy discussion with patient about course of treatment and patient instructions. patient reported no refills needed on rx refer to therapy - Jerilyn 2. Generalized anxiety disorder - Zoloft 150 mg daily GDR 12/14/22 Buspar 10 mg three times a day Obtain labs PCP 3. 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 Chronic post-traumatic stress disorder -schedule therapy Grief loss sister 05/09/24 Patient reported no refills needed today 5. Long-term drug therapy 06/11/2024 Generalized anxiety disorder (ICD-10 - F41.1) 08/20/2024 Major depressive disorder, recurrent severe without psychotic features (ICD-10 - F33.2) Preventing Depression From Coming Back: Care Instructions material was published, Seasonal Affective Disorder: Care Instructions material was published, Depression Treatment: Care Instructions material was published Preventing Depression From Coming Back: Care Instructions material was published, Seasonal Affective Disorder: Care Instructions material was published, Depression Treatment: Care Instructions material was published discussion with patient about course of treatment and patient instructions. 1. depression - Seroquel 200 mg at night- hx patient had agitation and anger and increase depression with GDR Seroquel to 100 mg dose failed 06/17/23 Wellbutrin XL 300 MG DAILY Monitor depression, and mood labs PCP Monitor for depression, SI stable educated on all medications, benefits, side effects and risk, and educated on depression, anxiety, and mood d/o and educated on compliance of medications, appointment's, continue therapy discussion with patient about course of treatment and patient instructions. patient reported no refills needed on rx refer to therapy - Jerilyn 2. Generalized anxiety disorder - Zoloft 150 mg daily GDR 12/14/22 Buspar 10 mg three times a day Obtain labs PCP 3. 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 Chronic post-traumatic stress disorder -schedule therapy Grief loss sister 05/09/24 5. Long-term drug therapy 08/21/2024 Generalized anxiety disorder (ICD-10 - F41.1) 2024 Generalized anxiety disorder (ICD-10 - F41.1) 08/20/2024 Generalized anxiety disorder (ICD-10 - F41.1) Generalized Anxiety Disorder: Care Instructions material was published, Learning About Generalized Anxiety Disorder material was published, Learning About Anxiety Disorders material was published Generalized Anxiety Disorder: Care Instructions material was published, Learning About Generalized Anxiety Disorder material was published, Learning About Anxiety Disorders material was published discussion with patient about course of treatment and patient instructions. 1. depression - Seroquel 200 mg at night- hx patient had agitation and anger and increase depression with GDR Seroquel to 100 mg dose failed 06/17/23 Wellbutrin XL 300 MG DAILY Monitor depression, and mood labs PCP Monitor for depression, SI stable educated on all medications, benefits, side effects and risk, and educated on depression, anxiety, and mood d/o and educated on compliance of medications, appointment's, continue therapy discussion with patient about course of treatment and patient instructions. patient reported no refills needed on rx refer to therapy - Jerilyn 2. Generalized anxiety disorder - Zoloft 150 mg daily GDR 12/14/22 Buspar 10 mg three times a day Obtain labs PCP 3. 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 Chronic post-traumatic stress disorder -schedule therapy Grief loss sister 05/09/24 5. Long-term drug therapy 05/21/2024 Generalized anxiety disorder (ICD-10 - F41.1) Generalized Anxiety Disorder: Care Instructions material was published, Learning About Generalized Anxiety Disorder material was published, Learning About Anxiety Disorders material was published Generalized Anxiety Disorder: Care Instructions material was published, Learning About Generalized Anxiety Disorder material was published, Learning About Anxiety Disorders material was published discussion with patient about course of treatment and patient instructions. 1. recurrent major depression - Seroquel 200 mg at night- hx patient had agitation and anger and increase depression with GDR Seroquel to 100 mg dose failed 06/17/23 patient reported no refill needed has rx at home Wellbutrin XL 300 MG DAILY Monitor depression, and mood labs PCP Monitor for depression, SI stable educated on all medications, benefits, side effects and risk, and educated on depression, anxiety, and mood d/o and educated on compliance of medications, appointment's, continue therapy discussion with patient about course of treatment and patient instructions. patient reported no refills needed on rx refer to therapy - Jerilyn 2. Generalized anxiety disorder - Zoloft 150 mg daily GDR 12/14/22 Buspar 10 mg three times a day Obtain labs PCP 3. 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 Chronic post-traumatic stress disorder -schedule therapy Grief loss sister 05/09/24 Patient reported no refills needed today 5. Long-term drug therapy 02/18/2024 Generalized anxiety disorder (ICD-10 - F41.1) Generalized Anxiety Disorder: Care Instructions material was published, Learning About Generalized Anxiety Disorder material was published, Learning About Anxiety Disorders material was published Generalized Anxiety Disorder: Care Instructions material was published, Learning About Generalized Anxiety Disorder material was published, Learning About Anxiety Disorders material was published discussion with patient about course of treatment and patient instructions. 1. recurrent major depression - Seroquel 200 mg at night- patient had agitation and anger and increase depression with GDR Seroquel to 100 mg dose failed 06/17/23 patient reported no refill needed has rx at home Wellbutrin XL 300 MG DAILY Monitor depression, and mood labs reviewed from PCP 03/28 HLD A1C scanned into chart Monitor for depression, SI stable educated on all medications, benefits, side effects and risk, and educated on depression, anxiety, and mood d/o and educated on compliance of medications, appointment's, continue therapy discussion with patient about course of treatment and patient instructions. patient reported no refills needed on rx refer to therapy - Jerilyn 2. Generalized anxiety disorder - Zoloft 150 mg daily GDR 12/14/22 Buspar 10 mg three times a day Obtain labs PCP 3. 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 Chronic post-traumatic stress disorder -schedule therapy Patient prefer to wait at this time 5. Long-term drug therapy 11/18/2023 Insomnia due to other mental disorder (ICD-10 - F51.05) discussion with patient about course of treatment and patient instructions. 1. Moderate recurrent major depression - Seroquel 200 mg at night- patient had agitation and anger and increase depression with GDR Seroquel to 100 mg dose failed 06/17/23 patient reported no refill needed has rx at home Wellbutrin XL 300 MG DAILY Monitor depression, and mood labs reviewed from PCP 03/28 HLD A1C scanned into chart Monitor for depression, SI stable educated on all medications, benefits, side effects and risk, and educated on depression, anxiety, and mood d/o and educated on compliance of medications, appointment's, continue therapy discussion with patient about course of treatment and patient instructions. patient reported no refills needed on rx refer to therapy - Jerilyn reviewed PCP note and labs 03/28 F33.1: Major depressive disorder, recurrent, moderate quetiapine 200 mg tablet - TAKE 1 TABLET BY MOUTH DAILY AT BEDTIME Qty: (90) tablet Refills: 0 Pharmacy: [facility] 2. Generalized anxiety disorder - Zoloft 150 mg daily GDR 12/14/22 Buspar 10 mg three times a day Obtain labs PCP F41.1: Generalized anxiety disorder 3. 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 Chronic post-traumatic stress disorder -schedule therapy Patient prefer to wait at this time F43.12: Post-traumatic stress disorder, chronic 5. Long-term drug therapy Z79.899: Other supervisor intermediates (current) drug therapy Discussion Notes refer to therapy - Jerilyn reviewed PCP note and labs 03/2811/18/2023 Post-traumatic stress disorder, chronic (ICD-10 - F43.12) Post-Traumatic Stress Disorder (PTSD): Care Instructions material was published discussion with patient about course of treatment and patient instructions. 1. Moderate recurrent major depression - Seroquel 200 mg at night- patient had agitation and anger and increase depression with GDR Seroquel to 100 mg dose failed 06/17/23 patient reported no refill needed has rx at home Wellbutrin XL 300 MG DAILY Monitor depression, and mood labs reviewed from PCP 03/28 HLD A1C scanned into chart Monitor for depression, SI stable educated on all medications, benefits, side effects and risk, and educated on depression, anxiety, and mood d/o and educated on compliance of medications, appointment's, continue therapy discussion with patient about course of treatment and patient instructions. patient reported no refills needed on rx refer to therapy - Jerilyn reviewed PCP note and labs 03/28 F33.1: Major depressive disorder, recurrent, moderate quetiapine 200 mg tablet - TAKE 1 TABLET BY MOUTH DAILY AT BEDTIME Qty: (90) tablet Refills: 0 Pharmacy: [facility] 2. Generalized anxiety disorder - Zoloft 150 mg daily GDR 12/14/22 Buspar 10 mg three times a day Obtain labs PCP F41.1: Generalized anxiety disorder 3. 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 Chronic post-traumatic stress disorder -schedule therapy Patient prefer to wait at this time F43.12: Post-traumatic stress disorder, chronic 5. Long-term drug therapy Z79.899: Other supervisor intermediates (current) drug therapy Discussion Notes refer to therapy - Jerilyn reviewed PCP note and labs 03/2802/18/2024 Insomnia due to other mental disorder (ICD-10 - F51.05) discussion with patient about course of treatment and patient instructions. 1. recurrent major depression - Seroquel 200 mg at night- patient had agitation and anger and increase depression with GDR Seroquel to 100 mg dose failed 06/17/23 patient reported no refill needed has rx at home Wellbutrin XL 300 MG DAILY Monitor depression, and mood labs reviewed from PCP 03/28 HLD A1C scanned into chart Monitor for depression, SI stable educated on all medications, benefits, side effects and risk, and educated on depression, anxiety, and mood d/o and educated on compliance of medications, appointment's, continue therapy discussion with patient about course of treatment and patient instructions. patient reported no refills needed on rx refer to therapy - Jerilyn 2. Generalized anxiety disorder - Zoloft 150 mg daily GDR 12/14/22 Buspar 10 mg three times a day Obtain labs PCP 3. 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 Chronic post-traumatic stress disorder -schedule therapy Patient prefer to wait at this time 5. Long-term drug therapy 05/21/2024 Insomnia due to other mental disorder (ICD-10 - F51.05) discussion with patient about course of treatment and patient instructions. 1. recurrent major depression - Seroquel 200 mg at night- hx patient had agitation and anger and increase depression with GDR Seroquel to 100 mg dose failed 06/17/23 patient reported no refill needed has rx at home Wellbutrin XL 300 MG DAILY Monitor depression, and mood labs PCP Monitor for depression, SI stable educated on all medications, benefits, side effects and risk, and educated on depression, anxiety, and mood d/o and educated on compliance of medications, appointment's, continue therapy discussion with patient about course of treatment and patient instructions. patient reported no refills needed on rx refer to therapy - Jerilyn 2. Generalized anxiety disorder - Zoloft 150 mg daily GDR 12/14/22 Buspar 10 mg three times a day Obtain labs PCP 3. 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 Chronic post-traumatic stress disorder -schedule therapy Grief loss sister 05/09/24 Patient reported no refills needed today 5. Long-term drug therapy 08/20/2024 Insomnia due to other mental disorder (ICD-10 - F51.05) discussion with patient about course of treatment and patient instructions. 1. depression - Seroquel 200 mg at night- hx patient had agitation and anger and increase depression with GDR Seroquel to 100 mg dose failed 06/17/23 Wellbutrin XL 300 MG DAILY Monitor depression, and mood labs PCP Monitor for depression, SI stable educated on all medications, benefits, side effects and risk, and educated on depression, anxiety, and mood d/o and educated on compliance of medications, appointment's, continue therapy discussion with patient about course of treatment and patient instructions. patient reported no refills needed on rx refer to therapy - Jerilyn 2. Generalized anxiety disorder - Zoloft 150 mg daily GDR 12/14/22 Buspar 10 mg three times a day Obtain labs PCP 3. 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 Chronic post-traumatic stress disorder -schedule therapy Grief loss sister 05/09/24 5. Long-term drug therapy 05/21/2024 Post-traumatic stress disorder, chronic (ICD-10 - F43.12) Post-Traumatic Stress Disorder (PTSD): Care Instructions material was published Post-Traumatic Stress Disorder (PTSD): Care Instructions material was published discussion with patient about course of treatment and patient instructions. 1. recurrent major depression - Seroquel 200 mg at night- hx patient had agitation and anger and increase depression with GDR Seroquel to 100 mg dose failed 06/17/23 patient reported no refill needed has rx at home Wellbutrin XL 300 MG DAILY Monitor depression, and mood labs PCP Monitor for depression, SI stable educated on all medications, benefits, side effects and risk, and educated on depression, anxiety, and mood d/o and educated on compliance of medications, appointment's, continue therapy discussion with patient about course of treatment and patient instructions. patient reported no refills needed on rx refer to therapy - Jerilyn 2. Generalized anxiety disorder - Zoloft 150 mg daily GDR 12/14/22 Buspar 10 mg three times a day Obtain labs PCP 3. 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 Chronic post-traumatic stress disorder -schedule therapy Grief loss sister 05/09/24 Patient reported no refills needed today 5. Long-term drug therapy 08/20/2024 Post-traumatic stress disorder, chronic (ICD-10 - F43.12) Post-Traumatic Stress Disorder (PTSD): Care Instructions material was published Post-Traumatic Stress Disorder (PTSD): Care Instructions material was published discussion with patient about course of treatment and patient instructions. 1. depression - Seroquel 200 mg at night- hx patient had agitation and anger and increase depression with GDR Seroquel to 100 mg dose failed 06/17/23 Wellbutrin XL 300 MG DAILY Monitor depression, and mood labs PCP Monitor for depression, SI stable educated on all medications, benefits, side effects and risk, and educated on depression, anxiety, and mood d/o and educated on compliance of medications, appointment's, continue therapy discussion with patient about course of treatment and patient instructions. patient reported no refills needed on rx refer to therapy - Jerilyn 2. Generalized anxiety disorder - Zoloft 150 mg daily GDR 12/14/22 Buspar 10 mg three times a day Obtain labs PCP 3. 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 Chronic post-traumatic stress disorder -schedule therapy Grief loss sister 05/09/24 5. Long-term drug therapy 11/18/2023 Other alf (current) drug therapy (ICD-10 - Z79.899) Medication Refill: Care Instructions material was published discussion with patient about course of treatment and patient instructions. 1. Moderate recurrent major depression - Seroquel 200 mg at night- patient had agitation and anger and increase depression with GDR Seroquel to 100 mg dose failed 06/17/23 patient reported no refill needed has rx at home Wellbutrin XL 300 MG DAILY Monitor depression, and mood labs reviewed from PCP 03/28 HLD A1C scanned into chart Monitor for depression, SI stable educated on all medications, benefits, side effects and risk, and educated on depression, anxiety, and mood d/o and educated on compliance of medications, appointment's, continue therapy discussion with patient about course of treatment and patient instructions. patient reported no refills needed on rx refer to therapy - Jerilyn reviewed PCP note and labs 03/28 F33.1: Major depressive disorder, recurrent, moderate quetiapine 200 mg tablet - TAKE 1 TABLET BY MOUTH DAILY AT BEDTIME Qty: (90) tablet Refills: 0 Pharmacy: [facility] 2. Generalized anxiety disorder - Zoloft 150 mg daily GDR 12/14/22 Buspar 10 mg three times a day Obtain labs PCP F41.1: Generalized anxiety disorder 3. 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 Chronic post-traumatic stress disorder -schedule therapy Patient prefer to wait at this time F43.12: Post-traumatic stress disorder, chronic 5. Long-term drug therapy Z79.899: Other alf (current) drug therapy Discussion Notes refer to therapy - Jerilyn reviewed PCP note and labs 03/2802/18/2024 Post-traumatic stress disorder, chronic (ICD-10 - F43.12) Post-Traumatic Stress Disorder (PTSD): Care Instructions material was published Post-Traumatic Stress Disorder (PTSD): Care Instructions material was published discussion with patient about course of treatment and patient instructions. 1. recurrent major depression - Seroquel 200 mg at night- patient had agitation and anger and increase depression with GDR Seroquel to 100 mg dose failed 06/17/23 patient reported no refill needed has rx at home Wellbutrin XL 300 MG DAILY Monitor depression, and mood labs reviewed from PCP 03/28 HLD A1C scanned into chart Monitor for depression, SI stable educated on all medications, benefits, side effects and risk, and educated on depression, anxiety, and mood d/o and educated on compliance of medications, appointment's, continue therapy discussion with patient about course of treatment and patient instructions. patient reported no refills needed on rx refer to therapy - Jerilyn 2. Generalized anxiety disorder - Zoloft 150 mg daily GDR 12/14/22 Buspar 10 mg three times a day Obtain labs PCP 3. 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 Chronic post-traumatic stress disorder -schedule therapy Patient prefer to wait at this time 5. 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 1. recurrent major depression - Seroquel 200 mg at night- patient had agitation and anger and increase depression with GDR Seroquel to 100 mg dose failed 06/17/23 patient reported no refill needed has rx at home Wellbutrin XL 300 MG DAILY Monitor depression, and mood labs reviewed from PCP 03/28 HLD A1C scanned into chart Monitor for depression, SI stable educated on all medications, benefits, side effects and risk, and educated on depression, anxiety, and mood d/o and educated on compliance of medications, appointment's, continue therapy discussion with patient about course of treatment and patient instructions. patient reported no refills needed on rx refer to therapy - Jerilyn 2. Generalized anxiety disorder - Zoloft 150 mg daily GDR 12/14/22 Buspar 10 mg three times a day Obtain labs PCP 3. 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 Chronic post-traumatic stress disorder -schedule therapy Patient prefer to wait at this time 5. 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 1. depression - Seroquel 200 mg at night- hx patient had agitation and anger and increase depression with GDR Seroquel to 100 mg dose failed 06/17/23 Wellbutrin XL 300 MG DAILY Monitor depression, and mood labs PCP Monitor for depression, SI stable educated on all medications, benefits, side effects and risk, and educated on depression, anxiety, and mood d/o and educated on compliance of medications, appointment's, continue therapy discussion with patient about course of treatment and patient instructions. patient reported no refills needed on rx refer to therapy - Jerilyn 2. Generalized anxiety disorder - Zoloft 150 mg daily GDR 12/14/22 Buspar 10 mg three times a day Obtain labs PCP 3. 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 Chronic post-traumatic stress disorder -schedule therapy Grief loss sister 05/09/24 5. 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 1. recurrent major depression - Seroquel 200 mg at night- hx patient had agitation and anger and increase depression with GDR Seroquel to 100 mg dose failed 06/17/23 patient reported no refill needed has rx at home Wellbutrin XL 300 MG DAILY Monitor depression, and mood labs PCP Monitor for depression, SI stable educated on all medications, benefits, side effects and risk, and educated on depression, anxiety, and mood d/o and educated on compliance of medications, appointment's, continue therapy discussion with patient about course of treatment and patient instructions. patient reported no refills needed on rx refer to therapy - Jerilyn 2. Generalized anxiety disorder - Zoloft 150 mg daily GDR 12/14/22 Buspar 10 mg three times a day Obtain labs PCP 3. 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 Chronic post-traumatic stress disorder -schedule therapy Grief loss sister 05/09/24 Patient reported no refills needed today 5. Long-term drug therapy 11/18/2023 Other Quetiapine Oral Tablet (QUETIAPINE - ORAL) material was published, Bupropion Extended Release Oral Tablet (BUPROPION HCL EXTENDED-RELEASE (ANTIDEPRESSANT) - ORAL) material was published, Buspirone Oral Tablet (BUSPIRONE - ORAL) material was published, Sertraline Oral Tablet (SERTRALINE - ORAL) material was published, Trazodone Oral Tablet (TRAZODONE - ORAL) material was published discussion with patient about course of treatment and patient instructions. 1. Moderate recurrent major depression - Seroquel 200 mg at night- patient had agitation and anger and increase depression with GDR Seroquel to 100 mg dose failed 06/17/23 patient reported no refill needed has rx at home Wellbutrin XL 300 MG DAILY Monitor depression, and mood labs reviewed from PCP 03/28 HLD A1C scanned into chart Monitor for depression, SI stable educated on all medications, benefits, side effects and risk, and educated on depression, anxiety, and mood d/o and educated on compliance of medications, appointment's, continue therapy discussion with patient about course of treatment and patient instructions. patient reported no refills needed on rx refer to therapy - Jerilyn reviewed PCP note and labs 03/28 F33.1: Major depressive disorder, recurrent, moderate quetiapine 200 mg tablet - TAKE 1 TABLET BY MOUTH DAILY AT BEDTIME Qty: (90) tablet Refills: 0 Pharmacy: [facility] 2. Generalized anxiety disorder - Zoloft 150 mg daily GDR 12/14/22 Buspar 10 mg three times a day Obtain labs PCP F41.1: Generalized anxiety disorder 3. 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 Chronic post-traumatic stress disorder -schedule therapy Patient prefer to wait at this time F43.12: Post-traumatic stress disorder, chronic 5. Long-term drug therapy Z79.899: Other supervisor intermediates (current) drug therapy Discussion Notes refer to therapy - Jerilyn reviewed PCP note and labs 03/28 Plan Of Treatment Next Appt Details Provider Name:Angelita Raza , 11/24/2024 09:15:00 AM, [address], [facility] [address], [place], [address], Insurance Providers Payer Name Payer Address Payer Phone Subscriber Number Group Number Insured Name Patient Relationship to Insured Coverage Start Date Coverage End Date [place] [address] [place]HA[place]ia [place]IG[place] [phone] [id number] GERI DELEON Self - patient is the insured [facility] [address] [place] [phone] [id number] WADE JESSICA Spouse - patient is the spouse of the insured Medical (General) History Medical History History ICD Code Problems: Chronic post-traumatic stress disorder Diabetes mellitus Generalized anxiety disorder Insomnia disorder related to another men lindsey disorder Long-term drug therapy Mild recurrent major depression Moderate recurrent major depression Severe recurrent major depression Suicidal thoughts , Surgical History Surgery Date(Month/Year) Any surgical history Endometr ablate thermal (30102) Gastric bypass for obesity (65135) 09/04 Hysterectomy/revise vagina (17523) 09/04 Other 01/24/2000 Removal of gallbladder (16579) 0
== END 2024-09-29 10:03 | disposition home or self-care (01) ==
PROVIDERS: PCP Family Medicine Adolescent Medicine; Visit Provider Physician Assistant Medical
DX: N20.2 Calculus of kidney with calculus of ureter (principal)
CPT/HCPCS: 74018

== ENCOUNTER 2024-10-06 09:18 | Outpatient (CLI) | payer MEDICARE, OTHER, SELFPAY ==
--- NOTE | ~2024-10-06 | CT_ITS ---
Non-contrast CT scan of the Abdomen and Pelvis Clinical indication: Right ureteral stone Technique: 2.5 mm axial scans were obtained through the abdomen and pelvis without intravenous or or al contrast. Dose reduction technique was used on this scan by utilizing automated exposure control a nd iterative reconstruction technique. The dose-length product (DLP) was 1120.54 mGy-cm. COMPARISON: 08/16/2023 Findings: Images through the lung bases reveal no abnormalities. Multiple bilateral nonobstructing renal stones are present, largest in the right kidney measuring 11 mm. No ureteral stone or hydronephrosis on either side. The liver, spleen, pancreas, and adrenals appear normal. Gallbladder absent. There is no aortic aneur ysm. There is no evidence of bowel obstruction. Images through the pelvis were performed. There is no evidence of ascites or lymphadenopathy. Urinary bladder unremarkable. No pelvic mass seen. No ascites. Impression: Multiple bilateral nonobstructing renal stones, as detailed above. Reviewed, dictated and finalized at [facility]. Impression: Multiple bilateral nonobstructing renal stones, as detailed above.
== END 2024-10-06 09:19 | disposition home or self-care (01) ==
LOC: MICIMG 09:20
PROVIDERS: PCP Physician Assistant Medical; Visit Provider Physician Assistant Medical
DX: N20.1 Calculus of ureter (principal)
CPT/HCPCS: 74176

== ENCOUNTER 2025-01-14 09:22 | Outpatient (CLI) | payer MEDICARE, OTHER, SELFPAY ==
--- OUTSIDE RECORDS SUMMARY | 2025-01-14 10:07 | XMS_ITS ---
constipation, weight changes, sexual side effects including loss of libido, increased suicidal thoughts/behaviors in children and young adults, and serotonin syndrome. Second generation antipsychotics (SGAs) have metabolic syndrome issues with weight gain, increase in prolactin, increased waist circumference, increased lipids, and increased glucose. Thus routine monitoring of weight, metabolic labs, etc. is indicated. A general rank ordering of antipsychotics that have the greatest to the least risk of metabolic effects is olanzapine, quetiapine, risperidone, ziprasidone, and aripiprazole. However, weight gain can occur with all of these drugs and considerable variability exists among patients receiving the same drug regarding the risk of metabolic effects. Anti-psychotic agents not only increase the risk of metabolic disorder, they also increase the risk of CVA, akathisia, and movement disorders including EPS or tardive dyskinesia (more common with first generation antipsychotics) and more. Elderly- discussed risks, cognition, sedation, falls, metabolic, movement and atypical antipsychotics carry a black-box warning for increased risk of and cerebrovascular events in dementia. Sleep Hygeine- - KEEP YOUR BEDROOM DARK - GET LOTS OF NATURAL LIGHT IN THE MORNING. - DON'T WORK ON YOUR COMPUTER OR PHONE LATE AT NIGHT. - AVOID NAPS DURING THE DAY. - NO CAFFEINE 3 HOURS OR MORE AFTER WAKE UP TIME. - ONLY USE YOUR BED FOR SLEEPING - GET A RELAXATION ROUTINE BEFORE BED. - IF YOU CAN'T GET TO SLEEP AFTER 15 TO 30 MINUTES GET OUT OF BED AND DO SOMETHING RELAXING. - DON'T DRINK ALCOHOL IN THE EVENING or limit alcohol to 1 drink. Medication Management and Follow-Up - Plan: - Schedule follow-up appointments every 1-3 months to monitor the patient's response to the medication regimen. - Reinforce the importance of avoiding recreational drug use due to potential neurotoxicity and interactions with prescribed medications. 05/21/2024 Generalized anxiety disorder (ICD-10 - F41.1) [...] refills needed today 5. Long-term drug therapy 12/01/2024 Insomnia due to other mental disorder (ICD-10 [...] Buspar 10 mg three times a day labs PCP 2023 discuss having labs completed and importance 3. 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 Chronic post-traumatic stress disorder -schedule therapy- reported not been in a while Grief loss sister 05/09/24 Patient educated on all medications including potential benefits, side effects, risks. Educated on proper dosing schedule and importance of compliance educated on all medications, benefits, side effects and risk, and educated on depression, anxiety, and ADHD, mood d/o and educated on compliance of medications, metabolic and movement d/o education appointment's, continue therapy discussion with patient about course of treatment and patient instructions. education on serotonin syndrome Discussed and educated pt regarding benzodiazepines are generally not intended for prolonged use and that use can cause tolerance, dependence, depression, and associated memory issues including dementias (this list is not exhaustive). Benzodiazepine use is generally not recommended concurrently with pain medications and/or other controlled substances educated on all medications, benefits, side effects and risk, and educated on depression, anxiety, and ADHD, mood d/o and educated on compliance of medications, metabolic and movement d/o education appointment is, continue therapy discussion with patient about course of treatment and patient instructions. education on serotonin syndrome SSRI/SNRI side effects discussed including but not limited to, gastric upset, nausea, vomiting, diarrhea and/or constipation, weight changes, sexual side effects including loss of libido, increased suicidal thoughts/behaviors in children and young adults, and serotonin syndrome. Second generation antipsychotics (SGAs) have metabolic syndrome issues with weight gain, increase in prolactin, increased waist circumference, increased lipids, and increased glucose. Thus routine monitoring of weight, metabolic labs, etc. is indicated. A general rank ordering of antipsychotics that have the greatest to the least risk of metabolic effects is olanzapine, quetiapine, risperidone, ziprasidone, and aripiprazole. However, weight gain can occur with all of these drugs and considerable variability exists among patients receiving the same drug regarding the risk of metabolic effects. Anti-psychotic agents not only increase the risk of metabolic disorder, they also increase the risk of CVA, akathisia, and movement disorders including EPS or tardive dyskinesia (more common with first generation antipsychotics) and more. Elderly- discussed risks, cognition, sedation, falls, metabolic, movement and atypical antipsychotics carry a black-box warning for increased risk of and cerebrovascular events in dementia. Sleep Hygeine- - KEEP YOUR BEDROOM DARK - GET LOTS OF NATURAL LIGHT IN THE MORNING. - DON'T WORK ON YOUR COMPUTER OR PHONE LATE AT NIGHT. - AVOID NAPS DURING THE DAY. - NO CAFFEINE 3 HOURS OR MORE AFTER WAKE UP TIME. - ONLY USE YOUR BED FOR SLEEPING - GET A RELAXATION ROUTINE BEFORE BED. - IF YOU CAN'T GET TO SLEEP AFTER 15 TO 30 MINUTES GET OUT OF BED AND DO SOMETHING RELAXING. - DON'T DRINK ALCOHOL IN THE EVENING or limit alcohol to 1 drink. Medication Management and Follow-Up - Plan: - Schedule follow-up appointments every 1-3 months to monitor the patient's response to the medication regimen. - Reinforce the importance of avoiding recreational drug use due to potential neurotoxicity and interactions with prescribed medications. 08/20/2024 Insomnia due to other mental disorder [...] sister 05/09/24 5. Long-term drug therapy 05/21/2024 Insomnia due [...] needed today 5. Long-term drug therapy 02/18/2024 Insomnia due to other mental disorder (ICD-10 [...] this time 5. Long-term drug therapy 02/18/2024 Post-traumatic stress disorder, chronic (ICD-10 - F43.12) [...] this time 5. Long-term drug therapy 08/20/2024 Post-traumatic stress [...] loss sister 05/09/24 5. Long-term drug therapy 12/01/2024 Post-traumatic stress disorder, chronic (ICD-10 - F43.12) [...] Buspar 10 mg three times a day labs PCP 2023 discuss having labs completed and importance 3. 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 Chronic post-traumatic stress disorder -schedule therapy- reported not been in a while Grief loss sister 05/09/24 Patient educated on all medications including potential benefits, side effects, risks. Educated on proper dosing schedule and importance of compliance educated on all medications, benefits, side effects and risk, and educated on depression, anxiety, and ADHD, mood d/o and educated on compliance of medications, metabolic and movement d/o education appointment's, continue therapy discussion with patient about course of treatment and patient instructions. education on serotonin syndrome Discussed and educated pt regarding benzodiazepines are generally not intended for prolonged use and that use can cause tolerance, dependence, depression, and associated memory issues including dementias (this list is not exhaustive). Benzodiazepine use is generally not recommended concurrently with pain medications and/or other controlled substances educated on all medications, benefits, side effects and risk, and educated on depression, anxiety, and ADHD, mood d/o and educated on compliance of medications, metabolic and movement d/o education appointment is, continue therapy discussion with patient about course of treatment and patient instructions. education on serotonin syndrome SSRI/SNRI side effects discussed including but not limited to, gastric upset, nausea, vomiting, diarrhea and/or constipation, weight changes, sexual side effects including loss of libido, increased suicidal thoughts/behaviors in children and young adults, and serotonin syndrome. Second generation antipsychotics (SGAs) have metabolic syndrome issues with weight gain, increase in prolactin, increased waist circumference, increased lipids, and increased glucose. Thus routine monitoring of weight, metabolic labs, etc. is indicated. A general rank ordering of antipsychotics that have the greatest to the least risk of metabolic effects is olanzapine, quetiapine, risperidone, ziprasidone, and aripiprazole. However, weight gain can occur with all of these drugs and considerable variability exists among patients receiving the same drug regarding the risk of metabolic effects. Anti-psychotic agents not only increase the risk of metabolic disorder, they also increase the risk of CVA, akathisia, and movement disorders including EPS or tardive dyskinesia (more common with first generation antipsychotics) and more. Elderly- discussed risks, cognition, sedation, falls, metabolic, movement and atypical antipsychotics carry a black-box warning for increased risk of and cerebrovascular events in dementia. Sleep Hygeine- - KEEP YOUR BEDROOM DARK - GET LOTS OF NATURAL LIGHT IN THE MORNING. - DON'T WORK ON YOUR COMPUTER OR PHONE LATE AT NIGHT. - AVOID NAPS DURING THE DAY. - NO CAFFEINE 3 HOURS OR MORE AFTER WAKE UP TIME. - ONLY USE YOUR BED FOR SLEEPING - GET A RELAXATION ROUTINE BEFORE BED. - IF YOU CAN'T GET TO SLEEP AFTER 15 TO 30 MINUTES GET OUT OF BED AND DO SOMETHING RELAXING. - DON'T DRINK ALCOHOL IN THE EVENING or limit alcohol to 1 drink. Medication Management and Follow-Up - Plan: - Schedule follow-up appointments every 1-3 months to monitor the patient's response to the medication regimen. - Reinforce the importance of avoiding recreational drug use due to potential neurotoxicity and interactions with prescribed medications. 05/21/2024 Post-traumatic stress disorder, chronic (ICD-10 - [...] refills needed today 5. 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 Chronic post-traumatic stress disorder -schedule therapy- reported not been in a while Grief loss sister 05/09/24 Patient educated on all medications including potential benefits, side effects, risks. Educated on proper dosing schedule and importance of compliance educated on all medications, benefits, side effects and risk, and educated on depression, anxiety, and ADHD, mood d/o and educated on compliance of medications, metabolic and movement d/o education appointment's, continue therapy discussion with patient about course of treatment and patient instructions. education on serotonin syndrome Discussed and educated pt regarding benzodiazepines are generally not intended for prolonged use and that use can cause tolerance, dependence, depression, and associated memory issues including dementias (this list is not exhaustive). Benzodiazepine use is generally not recommended concurrently with pain medications and/or other controlled substances educated on all medications, benefits, side effects and risk, and educated on depression, anxiety, and ADHD, mood d/o and educated on compliance of medications, metabolic and movement d/o education appointment is, continue therapy discussion with patient about course of treatment and patient instructions. education on serotonin syndrome SSRI/SNRI side effects discussed including but not limited to, gastric upset, nausea, vomiting, diarrhea and/or constipation, weight changes, sexual side effects including loss of libido, increased suicidal thoughts/behaviors in children and young adults, and serotonin syndrome. Second generation antipsychotics (SGAs) have metabolic syndrome issues with weight gain, increase in prolactin, increased waist circumference, increased lipids, and increased glucose. Thus routine monitoring of weight, metabolic labs, etc. is indicated. A general rank ordering of antipsychotics that have the greatest to the least risk of metabolic effects is olanzapine, quetiapine, risperidone, ziprasidone, and aripiprazole. However, weight gain can occur with all of these drugs and considerable variability exists among patients receiving the same drug regarding the risk of metabolic effects. Anti-psychotic agents not only increase the risk of metabolic disorder, they also increase the risk of CVA, akathisia, and movement disorders including EPS or tardive dyskinesia (more common with first generation antipsychotics) and more. Elderly- discussed risks, cognition, sedation, falls, metabolic, movement and atypical antipsychotics carry a black-box warning for increased risk of and cerebrovascular events in dementia. Sleep Hygeine- - KEEP YOUR BEDROOM DARK - GET LOTS OF NATURAL LIGHT IN THE MORNING. - DON'T WORK ON YOUR COMPUTER OR PHONE LATE AT NIGHT. - AVOID NAPS DURING THE DAY. - NO CAFFEINE 3 HOURS OR MORE AFTER WAKE UP TIME. - ONLY USE YOUR BED FOR SLEEPING - GET A RELAXATION ROUTINE BEFORE BED. - IF YOU CAN'T GET TO SLEEP AFTER 15 TO 30 MINUTES GET OUT OF BED AND DO SOMETHING RELAXING. - DON'T DRINK ALCOHOL IN THE EVENING or limit alcohol to 1 drink. Medication Management and Follow-Up - Plan: - Schedule follow-up appointments every 1-3 months to monitor the patient's response to the medication regimen. - Reinforce the importance of avoiding recreational drug use due to potential neurotoxicity and interactions with prescribed medications. 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 Long-term drug therapy 05/21/2024 Other prison (current) drug therapy (ICD-10 - Z79.899) Medication [...] needed today 5. 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 Long-term drug therapy 12/01/2024 Chronic anemia (ICD-10 - D64.9) discussion with patient about course of treatment [...] Buspar 10 mg three times a day labs PCP 2023 discuss having labs completed and importance 3. 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 Chronic post-traumatic stress disorder -schedule therapy- reported not been in a while Grief loss sister 05/09/24 Patient educated on all medications including potential benefits, side effects, risks. Educated on proper dosing schedule and importance of compliance educated on all medications, benefits, side effects and risk, and educated on depression, anxiety, and ADHD, mood d/o and educated on compliance of medications, metabolic and movement d/o education appointment's, continue therapy discussion with patient about course of treatment and patient instructions. education on serotonin syndrome Discussed and educated pt regarding benzodiazepines are generally not intended for prolonged use and that use can cause tolerance, dependence, depression, and associated memory issues including dementias (this list is not exhaustive). Benzodiazepine use is generally not recommended concurrently with pain medications and/or other controlled substances educated on all medications, benefits, side effects and risk, and educated on depression, anxiety, and ADHD, mood d/o and educated on compliance of medications, metabolic and movement d/o education appointment is, continue therapy discussion with patient about course of treatment and patient instructions. education on serotonin syndrome SSRI/SNRI side effects discussed including but not limited to, gastric upset, nausea, vomiting, diarrhea and/or constipation, weight changes, sexual side effects including loss of libido, increased suicidal thoughts/behaviors in children and young adults, and serotonin syndrome. Second generation antipsychotics (SGAs) have metabolic syndrome issues with weight gain, increase in prolactin, increased waist circumference, increased lipids, and increased glucose. Thus routine monitoring of weight, metabolic labs, etc. is indicated. A general rank ordering of antipsychotics that have the greatest to the least risk of metabolic effects is olanzapine, quetiapine, risperidone, ziprasidone, and aripiprazole. However, weight gain can occur with all of these drugs and considerable variability exists among patients receiving the same drug regarding the risk of metabolic effects. Anti-psychotic agents not only increase the risk of metabolic disorder, they also increase the risk of CVA, akathisia, and movement disorders including EPS or tardive dyskinesia (more common with first generation antipsychotics) and more. Elderly- discussed risks, cognition, sedation, falls, metabolic, movement and atypical antipsychotics carry a black-box warning for increased risk of and cerebrovascular events in dementia. Sleep Hygeine- - KEEP YOUR BEDROOM DARK - GET LOTS OF NATURAL LIGHT IN THE MORNING. - DON'T WORK ON YOUR COMPUTER OR PHONE LATE AT NIGHT. - AVOID NAPS DURING THE DAY. - NO CAFFEINE 3 HOURS OR MORE AFTER WAKE UP TIME. - ONLY USE YOUR BED FOR SLEEPING - GET A RELAXATION ROUTINE BEFORE BED. - IF YOU CAN'T GET TO SLEEP AFTER 15 TO 30 MINUTES GET OUT OF BED AND DO SOMETHING RELAXING. - DON'T DRINK ALCOHOL IN THE EVENING or limit alcohol to 1 drink. Medication Management and Follow-Up - Plan: - Schedule follow-up appointments every 1-3 months to monitor the patient's response to the medication regimen. - Reinforce the importance of avoiding recreational drug use due to potential neurotoxicity and interactions with prescribed medications. 12/01/2024 Over weight (ICD-10 - E66.3) discussion with patient about course of treatment [...] Buspar 10 mg three times a day labs PCP 2023 discuss having labs completed and importance 3. 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 Chronic post-traumatic stress disorder -schedule therapy- reported not been in a while Grief loss sister 05/09/24 Patient educated on all medications including potential benefits, side effects, risks. Educated on proper dosing schedule and importance of compliance educated on all medications, benefits, side effects and risk, and educated on depression, anxiety, and ADHD, mood d/o and educated on compliance of medications, metabolic and movement d/o education appointment's, continue therapy discussion with patient about course of treatment and patient instructions. education on serotonin syndrome Discussed and educated pt regarding benzodiazepines are generally not intended for prolonged use and that use can cause tolerance, dependence, depression, and associated memory issues including dementias (this list is not exhaustive). Benzodiazepine use is generally not recommended concurrently with pain medications and/or other controlled substances educated on all medications, benefits, side effects and risk, and educated on depression, anxiety, and ADHD, mood d/o and educated on compliance of medications, metabolic and movement d/o education appointment is, continue therapy discussion with patient about course of treatment and patient instructions. education on serotonin syndrome SSRI/SNRI side effects discussed including but not limited to, gastric upset, nausea, vomiting, diarrhea and/or constipation, weight changes, sexual side effects including loss of libido, increased suicidal thoughts/behaviors in children and young adults, and serotonin syndrome. Second generation antipsychotics (SGAs) have metabolic syndrome issues with weight gain, increase in prolactin, increased waist circumference, increased lipids, and increased glucose. Thus routine monitoring of weight, metabolic labs, etc. is indicated. A general rank ordering of antipsychotics that have the greatest to the least risk of metabolic effects is olanzapine, quetiapine, risperidone, ziprasidone, and aripiprazole. However, weight gain can occur with all of these drugs and considerable variability exists among patients receiving the same drug regarding the risk of metabolic effects. Anti-psychotic agents not only increase the risk of metabolic disorder, they also increase the risk of CVA, akathisia, and movement disorders including EPS or tardive dyskinesia (more common with first generation antipsychotics) and more. Elderly- discussed risks, cognition, sedation, falls, metabolic, movement and atypical antipsychotics carry a black-box warning for increased risk of and cerebrovascular events in dementia. Sleep Hygeine- - KEEP YOUR BEDROOM DARK - GET LOTS OF NATURAL LIGHT IN THE MORNING. - DON'T WORK ON YOUR COMPUTER OR PHONE LATE AT NIGHT. - AVOID NAPS DURING THE DAY. - NO CAFFEINE 3 HOURS OR MORE AFTER WAKE UP TIME. - ONLY USE YOUR BED FOR SLEEPING - GET A RELAXATION ROUTINE BEFORE BED. - IF YOU CAN'T GET TO SLEEP AFTER 15 TO 30 MINUTES GET OUT OF BED AND DO SOMETHING RELAXING. - DON'T DRINK ALCOHOL IN THE EVENING or limit alcohol to 1 drink. Medication Management and Follow-Up - Plan: - Schedule follow-up appointments every 1-3 months to monitor the patient's response to the medication regimen. - Reinforce the importance of avoiding recreational drug use due to potential neurotoxicity and interactions with prescribed medications. Plan Of Treatment Future Test Test Name Order Date IRON, TIBC AND FERRITIN PANEL (3524) LIPID PANEL WITH REFLEX TO DIRECT LDL (1 2540) 12/01/2024 COMPREHENSIVE METABOLIC PANEL (95893) CBC (INCLUDES DIFF/PLT) (6399) HEMOGLOBIN A1c (496) 12/01/2024 TSH W/REFLEX TO FT4 (14060) 12/01/2024 VITAMIN D,25-OH,TOTAL,IA (90996) 025 Next Appt Details Provider Name:Angelita Raza , 03/04/2025 09:30:00 AM, [address], [facility] [address], [place], [address], Insurance Providers Payer Name Payer Address Payer Phone Subscriber Number Group Number Insured Name Patient Relationship to Insured Coverage Start Date Coverage End Date [place] [address] [place] [address] [id number] GERI DELEON Self - patient is the insured [facility] [address] [place] [phone] [id number] WADE JESSICA Spouse - patient is the [...] Date(Month/Year) Any surgical history Endometr ablate thermal (58276) Gastric bypass for obesity (20693) 09/04 Hysterectomy/revise vagina (79649) 09/04 Other 01/24/2000 Removal of gallbladder (51193) 0
== END 2025-01-14 09:23 | disposition home or self-care (01) ==
LOC: ANHAUDIO 09:24
PROVIDERS: PCP Family Medicine; Visit Provider Family Medicine
DX: H90.3 Sensorineural hearing loss, bilateral (principal)
CPT/HCPCS: 92557; 92567